=== PATIENT | female | born 1955 | race Caucasian/White ===

== ENCOUNTER 2018-09-17 20:56 | Outpatient (REF) | payer MEDICARE, MEDICAID, SELFPAY ==
[2018-09-17 23:00] LABS: BUN 12 mg/dL (7-18); CREATININE 1.04 mg/dL (0.55-1.02); Calcium 9.9 mg/dL (8.5-10.1); Chloride 101 mmol/L (98-107); Cholesterol 216 mg/dL (50-200); Estimated GFR 53.52 (mL/min/1.73m2); Glucose 90 mg/dL (70-100); HDL Cholesterol 52 mg/dL (40-60); LDL CHOLESTEROL 125 mg/dL (<100); Potassium 4.2 mmol/L (3.5-5.1); Sodium 138 mmol/L (136-145); TSH (W/Ref FT4) 2.85 uIU/mL (0.358-3.74); Triglyceride 261 mg/dL (30-150)
== END 2018-09-17 21:16 ==
LOC: NCHCN 20:56
PROVIDERS: PCP Specialist/Technologist Athletic Trainer; Visit Provider Specialist/Technologist Athletic Trainer
DX: I10 Essential (primary) hypertension (principal); E78.5 Hyperlipidemia, unspecified; R94.6 Abnormal results of thyroid function studies
CPT/HCPCS: 80048; 80061; 83721; 84443

== ENCOUNTER 2019-03-21 14:15 | Outpatient (REF) | payer MEDICARE, MEDICAID, SELFPAY | END 2019-03-21 14:35 | LOC: NCHCN 14:15 | PROVIDERS: PCP Specialist/Technologist Athletic Trainer; Visit Provider Specialist/Technologist Athletic Trainer | DX: R69 Illness, unspecified (principal) ==

== ENCOUNTER 2019-03-21 22:35 | Outpatient (REF) | payer MEDICARE, MEDICAID, SELFPAY ==
[2019-03-21 23:57] LABS: Epithelial Cells Rare HPF (Negative); Other Cells Few Renal (Negative); RBC Negative (0-2); WBC 0-2 HPF (0-5)
[2019-03-21 23:58] LABS: Bacteria Negative HPF (Negative); C & S Indicated? No; Casts Negative LPF (Negative); Crystals Negative HPF (Negative); Mucus Negative (Negative)
== END 2019-03-21 22:55 ==
LOC: NCHCN 22:35
PROVIDERS: PCP Specialist/Technologist Athletic Trainer; Visit Provider Specialist/Technologist Athletic Trainer
DX: R30.9 Painful micturition, unspecified (principal)
CPT/HCPCS: 81015

== ENCOUNTER 2019-09-20 12:36 | Outpatient (REF) | payer OTHER, MEDICAID, SELFPAY ==
[2019-09-20 19:59] LABS: Anion Gap 8.9 mmol/L (3-11); BUN 19 mg/dL (7-18); CO2 28.1 mmol/L (21.0-32.0); Calcium 9.6 mg/dL (8.5-10.1); Chloride 99 mmol/L (98-107); Glucose 112 mg/dL (74-106); Potassium 4.8 mmol/L (3.5-5.1); Sodium 136 mmol/L (136-145); TSH (W/Ref FT4) 1.91 uIU/mL (0.36-3.74)
== END 2019-09-20 12:56 ==
LOC: NCHCN 12:36
PROVIDERS: PCP Specialist/Technologist Athletic Trainer; Visit Provider Specialist/Technologist Athletic Trainer
DX: R94.6 Abnormal results of thyroid function studies (principal); I10 Essential (primary) hypertension
CPT/HCPCS: 80048; 84443

== ENCOUNTER 2019-10-18 01:48 | Outpatient (CLI) | payer OTHER, MEDICAID, SELFPAY ==
--- NOTE | 2019-10-18 | DI.MAMMO_ITS ---
EXAM: MG MAMMO SCREENING CLINICAL HISTORY: SCREENING, [facility], Z00.00. TECHNIQUE: Bilateral full field digital CC and MLO mammographic images were obtained with 3D tomosyn thesis and utilizing computer aided detection (CAD). COMPARISON: Available for comparison. FINDINGS: Masses/Architectural Distortion: None seen. Microcalcifications: No suspicious pleomorphic-type are seen. Skin Thickening/Nipple Retraction: None. IMPRESSION: 1. No significant interval change with no specific features of malignancy noted. 2. Unless there is more urgent need, screening mammography is recommended, as per [employer] guidelines. ACR BI-RAD Category- 1 Negative Breast Density - Category C - Heterogeneously dense The mammogram demonstrates the patient's breast tissue is dense. Dense breast tissue is very common a nd is not abnormal but dense breast tissue can make it harder to find cancer on a mammogram. Also, de nse breast tissue may increase their breast cancer risk. This information about the result of the [facility] mogram report was provided to the patient to raise their awareness. Use this report when you speak wi th the patient about their risks for breast cancer, which includes their family history. At that time , you may recommend for more screening tests (Ultrasound or MRI) as they might be useful based on the ir risk. A negative radiographic report should not delay biopsy if a dominant or clinically suspicious mass is present. Up to ten percent of cancers are not identified on mammography. A negative report may reinforce clinical impression. Adenosis and dense breasts may obscure an underlying neoplasm. False positive reports average 6 to 10%. Patient will receive a letter notifying them of these results.
== END 2019-10-18 02:08 ==
PROVIDERS: PCP Specialist/Technologist Athletic Trainer; Visit Provider Specialist/Technologist Athletic Trainer
DX: Z12.31 Encounter for screening mammogram for malignant neoplasm of breast (principal)
CPT/HCPCS: 77063; 77067

== ENCOUNTER 2020-06-01 10:55 | Outpatient (REF) | payer OTHER, MEDICAID, SELFPAY ==
[2020-06-01 20:18] LABS: Calculated LDL 118 mg/dL (<100); Cholesterol 203 mg/dL (<200); HDL Cholesterol 53 mg/dL (40-60); Triglyceride 161 mg/dL (<150)
== END 2020-06-01 11:15 ==
LOC: NCHCN 10:55
PROVIDERS: PCP Specialist/Technologist Athletic Trainer; Visit Provider Nurse Practitioner Family
DX: R73.03 Prediabetes (principal); E78.5 Hyperlipidemia, unspecified
CPT/HCPCS: 80061; 83036

== ENCOUNTER 2020-12-30 10:53 | Outpatient (REF) | payer OTHER, MEDICAID, SELFPAY ==
[2020-12-30 15:51] LABS: Calculated LDL 76 mg/dL (<100); Cholesterol 158 mg/dL (<200); HDL Cholesterol 48 mg/dL (40-60); Magnesium 1.8 mg/dL (1.8-2.4); Triglyceride 174 mg/dL (<150)
== END 2020-12-30 10:54 | disposition home or self-care (01) ==
LOC: NCHCN 10:53
PROVIDERS: PCP Specialist/Technologist Athletic Trainer; Visit Provider Nurse Practitioner Family
DX: E78.5 Hyperlipidemia, unspecified (principal); I10 Essential (primary) hypertension
CPT/HCPCS: 80061; 83735

== ENCOUNTER 2021-12-16 16:12 | Outpatient (REF) | payer OTHER, MEDICAID, SELFPAY ==
[2021-12-16 21:22] LABS: Hemoglobin A1C 6.3 % (<5.7)
[2021-12-16 21:48] LABS: Anion Gap 8.6 mmol/L (3-11); BUN 17 mg/dL (7-18); CO2 28.4 mmol/L (21.0-32.0); CREATININE 0.9 mg/dL (0.55-1.02); Chloride 100 mmol/L (98-107); Glucose 110 mg/dL (74-106); Potassium 4.9 mmol/L (3.5-5.1); Sodium 137 mmol/L (136-145); Vitamin B12 > 2000 pg/mL (193-986)
== END 2021-12-16 16:13 | disposition home or self-care (01) ==
LOC: NCHCN 16:12
PROVIDERS: PCP Specialist/Technologist Athletic Trainer; Visit Provider Nurse Practitioner Family
DX: R73.03 Prediabetes (principal); I10 Essential (primary) hypertension; R35.0 Frequency of micturition; E53.8 Deficiency of other specified B group vitamins
CPT/HCPCS: 80048; 87077; 82607; 83036; 87086; 87186

== ENCOUNTER 2022-01-18 18:26 | Outpatient (REF) | payer OTHER, MEDICAID, SELFPAY | END 2022-01-18 18:27 | disposition home or self-care (01) | LOC: LBN 18:26 | PROVIDERS: PCP Specialist/Technologist Athletic Trainer; Visit Provider Nurse Practitioner Family | DX: R35.0 Frequency of micturition (principal) | CPT/HCPCS: 87086 ==

== ENCOUNTER → 2022-02-02 03:09 | Outpatient (CLI) | payer OTHER, MEDICAID, SELFPAY ==
--- NOTE | 2022-02-02 12:16 | DI.MAMMO_ITS ---
Exam(s) MAMMO SCREENING EXAM: MAMMO SCREENING CLINICAL HISTORY: SCREENING, Z12.31 TECHNIQUE: Mammograms were interpreted according to the usual protocol including computer analysis w [facility] CAD system, tomosynthesis and C-view imaging. COMPARISON: FINDINGS: The breasts are heterogeneously dense. No dominant mass or clumped microcalcification is identified in either breast. The current examination is compared with previous examinations including October 2019 and there has been no gross interval change in appearance in comparison with the prior studies. IMPRESSION: No specific evidence of malignancy at this time. Routine screening examinations are suggested at yea rly intervals in this age group according to the ACS ACR guidelines. BI-RADS Category 1 - Negative Breast Density - Category C - Heterogeneously dense
== END ==
PROVIDERS: PCP Specialist/Technologist Athletic Trainer; Visit Provider Nurse Practitioner Family
DX: Z12.31 Encounter for screening mammogram for malignant neoplasm of breast (principal)
CPT/HCPCS: 77063; 77067

== ENCOUNTER 2022-06-23 17:10 | Outpatient (REF) | payer MEDICARE, MEDICAID, SELFPAY ==
[2022-06-23 19:36] LABS: Vitamin B12 721 pg/mL (193-986)
[2022-06-23 20:04] LABS: Hemoglobin A1C 6.4 % (<5.7)
== END 2022-06-23 17:11 | disposition home or self-care (01) ==
LOC: NCHCN 17:10
PROVIDERS: PCP Specialist/Technologist Athletic Trainer; Visit Provider Nurse Practitioner Family
DX: R73.03 Prediabetes (principal); E53.8 Deficiency of other specified B group vitamins
CPT/HCPCS: 82607; 83036

== ENCOUNTER 2023-08-07 13:55 | Outpatient (REF) | payer MEDICARE, MEDICAID, SELFPAY ==
[2023-08-07 15:31] LABS: Hemoglobin A1C 6.3 % (<5.7)
[2023-08-07 15:45] LABS: Vitamin D 25 Total 25.4 ng/mL (30-100)
[2023-08-07 15:49] LABS: ALT 30 U/L (14-59); AST 20 U/L (15-37); Albumin 3.9 g/dL (3.4-5.0); Alkaline Phosphatase 101 U/L (46-116); Anion Gap 5.9 mmol/L (3-11); BUN 12 mg/dL (7-18); Bilirubin, Total 0.4 mg/dL (0.2-1.0); CO2 28.1 mmol/L (21.0-32.0); CREATININE 0.9 mg/dL (0.55-1.02); Calcium 9.5 mg/dL (8.5-10.1); Calculated LDL 100 mg/dL (<100); Chloride 101 mmol/L (98-107); Cholesterol 187 mg/dL (<200); Estimated GFR 69.64 (mL/min/1.73m2); Glucose 116 mg/dL (74-106); HDL Cholesterol 70 mg/dL (40-60); Potassium 5.2 mmol/L (3.5-5.1); Sodium 135 mmol/L (136-145); Total Protein 7.5 g/dL (6.4-8.2); Triglyceride 88 mg/dL (<150); Vitamin B12 443 pg/mL (193-986)
== END 2023-08-07 13:56 | disposition home or self-care (01) ==
LOC: NCHCN 13:55
PROVIDERS: PCP Specialist/Technologist Athletic Trainer; Visit Provider Nurse Practitioner Family
DX: E78.5 Hyperlipidemia, unspecified (principal); R73.03 Prediabetes; Z00.00 Encounter for general adult medical examination without abnormal findings
CPT/HCPCS: 80053; 80061; 82306; 82607; 83036

== ENCOUNTER 2024-08-20 16:04 | Outpatient (REF) | payer MEDICARE, SELFPAY ==
--- OUTSIDE RECORDS SUMMARY | 2024-08-20 16:06 | XMS_ITS | Encounter Summary ---
Author Organization [facility] Address [address] [place] [address] Care Team Providers Care Range Technician Name Role Phone Calista Leiva BUTT WELDER Primary Care Provider [phone] Encounter Details Date Type Department Care Team (Latest Contact Info) Description 08/14/2013 13:12 EST - 08/14/2013 23:59 EST Hospital Encounter [address] [address] Unknown, Provider, MD Discharge Disposition: Home or Self Care Social History Tobacco Use Types Packs/Day Years Used Date Smoking Tobacco: Never Assessed Comments Unknown Sex and Gender Information Value Date Recorded Sex Assigned at Not on file Legal Sex Female 18:33 EST Gender Identity Not on file Sexual Orientation Not on file documented as of this encounter Discharge Disposition Disposition Code Departure Means Destination Home or Self [facility] documented in this encounter Plan of Treatment Not on file documented as of this encounter Visit Diagnoses Not on filedocumented in this encounter Care Teams Range Technician Relationship Specialty Start Date End Date Calista Leiva NP [facility] [address] [place] [address] PCP - General 08/12/13 documented as of this encounter
--- OUTSIDE RECORDS SUMMARY | 2024-08-20 16:06 | XMS_ITS | Encounter Summary ---
[place] [address] Care Team Providers Care Director Of Public Relations Name Role Phone Rafat Spence Primary Care Provider [phone] Reason for Visit * Reason Comments Bilateral Arm Pain numbness Bilateral Leg Pain numbness Encounter Details Date Type Department Care Team (Late st Contact Info) Description 09/26/2014 10:25 AM EST Office [place] [address] Elizabeth Durand TREATER [facility] [place] [address] Cervical myelopathy Discharge Disposition: Home Social History Tobacco Use Types Packs/Day Years Used Date Smoking Tobacco: Never Smokeless Tobacco: Never Alcohol Use Standard Drinks/Week Comments No 0 (1 standard drink = 0.6 oz pur e alcohol) Sex and Gender Information Value Date Recorded Sex Assigned at Not on file Gender Identity Not on file Sexual Orientation Not on file documented as of this encounter Last Filed Vital Signs Vital Sign Reading Time Taken Comments Blood Pressure - - Pulse - - Temperature - - Respiratory Rate - - Oxygen Saturation - - Inhaled Oxygen Concentration - - Weight 63.5 kg (140 lb) 09/26/2014 11:15 AM EST Height 149.9 cm (4' 11) 09/26/2014 11:15 AM EST Body Mass Index 28.28 09/26/2014 11:15 AM EST documented in this encounter Progress Notes * Elizabeth Durand APRN - 09/29/2014 5:17 PM EST INTERVAL HISTORY: Jong Oliva is a 58 y.o. Right hand dominant female with h/o cervical myelopathyseen in the [facility] today for follow-up office visit with a chief complaint of increased pain and diffuse numbness and tingling in left>right bilateral upper and lower extremities. She is accompanied by her daughter today. She was to see Bertha Borja APRN, for surgical f/u in Dr. Radford's absence but she missed that f/u appointment. She has h/o C5-6 ACDF in 2001, that was then extended toC4-5 and C6-[address] Odilon Radford on 02/18/14 for cervical myelopathy. She notes feeling increasingly off balance and increased weakness in her legs while ambulating overthe last month. She reports a sharper increase in her symptoms over this past week. Upper extremitysymptoms began to increase about 2 weeks ago. She began experiencing increased pain in bilateral knees about 1 month ago and was diagnosed with OA in her knees after her PCP obtained knee x- rays. Herupper and lower extremity symptoms then slowly began to increase after that. She states, I'm not falling like I was prior to surgery, but I've started feeling more off balance. She has used a cane intermittently since her ACDF last summer. She has had 1 fall recently which involved missing a chair when she went to sit down. She complains of, throbbing pain everywhere, and shooting pains in her mid back, arms and legs. REVIEW OF SYSTEMS: negative for any GI or symptoms (except urinary urgency), constitutional symptoms, saddle anesthesia, dysphagia, or loss of bowel or bladder control. She does note some residualgait issues and right sided weakness since her last spine surgery as well as difficulty opening a jar with the right hand. She notes feeling increasingly off balance over the last month. PAST MEDICAL HISTORY: Hypertension, hyperlipidemia & h/o tuberculosis. SOCIAL HISTORY: She has been on SSDI since 2005 and does not smoke tobacco. MEDICATIONS & ALLERGIES: reviewed with the patient and are in eD-H. PHYSICAL EXAMINATION: Height: 4'11. Weight: 140 lbs. BMI: 28.3. This is an overweight older adult female in no acute distress. She ambulates with a limping, spastic gait and uses a cane. She is unable to perform tandem heel-toe walk without ataxia. She has a wellhealed anterior cervical incision scar. Her cervical spine is non-tender to palpation. [employer] Sourcer strength is 5/5 on the left, 5-/5 on the right. Strength is 5/5 in left triceps/biceps and 4/5 in right triceps/biceps. Strength is 5/5 in all lower extremity muscle groups with the exception of 4/5 in righthip flexor and 2/5 in right hamstring, and she demonstrates weakness with dorsiflexion>plantar flexion of right foot. Touch sensation is diffusely decreased in bilateral upper & lower extremities. Triceps deep tendon reflexes are 2/4 bilaterally. Biceps deep tendon reflexes are 2/4 bilaterally. Brachioradialis deep tendon reflexes are 2/4 bilaterally. There is no clonus. Babinski is with down-going toes bilaterally. Lori's reflex is present bilaterally. Lhermitte's sign is absent. IMAGIN04/21/14 Cervical AP & lateral x-ray: Findings There is an anterior cervical discectomy and plate with screw fusion from C4-C7. There is no change in alignment of hardware with no hardware lucency. No fracture or listhesis. There has been interval removal of the surgical drain. No paravertebral soft tissue swelling. Impression Unchanged appearance of C4-C7 ACDF with no complication. ASSESSMENT: Patient with a h/o cervical myelopathy and recurrent symptoms s/p ACDF. PLAN: 1) Will obtain updated Cervical MRI w/wo contrast given a change in her symptoms. She requires oralsedation due to claustrophobia and was instructed she will need a van driver to and from her MRI appointment. 2) As she cannot tolerate oral NSAIDs given her h/o bleeding ulcers, and she is asking for a prescription for pain medication, I have given her a prescription for hydromorphone 2mg Q6 hours PRN to take for pain, which she tolerated well during her hospital stay after her last ACDF surgery. I advised her not to drink alcohol or drive while taking this medication. She will continue acetaminophen asneeded as well. Follow-Up: After MRI for review of imaging findings and consideration of treatment options. I instructed her not to lift >10 lbs. pending obtaining updated imaging and to f/u sooner/emergently should she experience progressively worsening pain, numbness, weakness, or loss of control of bowel or bladder function. All questions were answered and the patient is in agreement with the above treatment plan. This was a counseling dominated visit with approximately 15 minutes of this 25 minute encounter spent in face to face counseling, medical decision making, and review of imaging and treatment options. Thank you for the opportunity to participate in the care of this patient. Elizabeth Durand MS, TREATER, [employer] documented in this encounter Plan of Treatment Not on file documented as of this encounter Visit Diagnoses Diagnosis Cervical myelopathy Cervical spondylosis with myelopathy documented in this encounter Care Teams Director Of Public Relations Relationship Specialty Start Date End Date Rafat Spence PA [address] [place] [address] PCP - General 09/26/14 03/08/21 documented as of this encounter
--- OUTSIDE RECORDS SUMMARY | 2024-08-20 16:06 | XMS_ITS | Encounter Summary ---
Author Organization [facility] Address [address] [place] [address] Care Team Providers Care Drainage Design Coordinator Name Role Phone Unavailable Primary Care Provider Unavailabl e Encounter Details Date Type Department Care Team (Late st Contact Info) Description 12/07/2007 Results Only [facility] [place] [facility] conversion [address] [place] [address] Calista Paniagua, ERNIE [facility] [address] [place] [address] Social History Tobacco Use Types Packs/Day Years Used Date Smoking Tobacco: Never Assessed Comments Unknown Sex and Gender Information Value Date Recorded Sex Assigned at Not on file Legal Sex Female 18:33 EST Gender Identity Not on file Sexual Orientation Not on file documented as of this encounter Plan of Treatment Not on file documented as of this encounter Procedures Procedure Name Priority Date/Time Associated Diagnosis Comments CYTOPATHOLOGY Routine 12/07/2007 0:00 EDT documented in this encounter Results * CYTOPATHOLOGY (12/07/2007 0:00 EDT) Pathology Report: CYTOPATHOLOGY REPORT Reports generated via electronic interface contain original data; however they are lacking the format of the original report. Caution should be taken when reading/interpreti ng unformatted reports. Name: ? JONG PRIETO ? Accession #: ? [id number] : ? 1955 (Age: 51) ??F ?Collect Date: ? 12/07/2007 Location: ? [facility] ? Receive Date: ? 12/10/2007 Provider: ?CALISTA PANIAGUA TRIAL CONSULTANT Copy to: ? Specimen/Source: ?ThinPrep Pap Test, Cervix/Endocervix, processed on Net 263 ThinPrep Imaging System, with manual evaluation Last Menstrual Period: ? SPECIMEN ADEQUACY ? Satisfactory for Evaluation - assessment of transformation zone component not applicable ( e.g. atrophy, vaginal sample, hysterectomy) GENERAL CATEGORIZATION ? Negative for Intraepithelial Lesion or Malignancy ? Document reviewed and electronically signed by: ? NADIA Pearson(ASCP)(IAC) ? Report Date: ??12/12/2007 16:02 End of Report [facility] 12/07/2007 12/10/2007 us Calista Paniagua NP PATHOLOGY ORDERABLES Final Resu lt Performing Organization Address City/State/[facility] Co de Phone Number [facility] [address] [place] [address] documented in this encounter Visit Diagnoses Not on filedocumented in this encounter
--- OUTSIDE RECORDS SUMMARY | 2024-08-20 16:06 | XMS_ITS | Encounter Summary ---
Author Organization [facility] Address [address] [place] [address] Care Team Providers Care Louver Mortiser Operator Name Role Phone Unavailable Primary Care Provider Unavailabl e Encounter Details Date Type Department Care Team (Late st Contact Info) Description 01/09/2012 Results Only [facility] Laboratory Services - [facility] ([facility] [address] [place], [place] [id number] Calista Paniagua NP [facility] [address] [place] [address] Social History Tobacco Use Types [...] Procedure Name Priority Date/Time Associated Diagnosis Comments PAP TEST- RESULT ONLY Routine 01/09/2012 0:00 EDT documented in this encounter Results * PAP TEST- RESULT ONLY (01/09/2012 0:00 EDT) Pathology Report: CYTOPATHOLOGY REPORT Reports generated via electronic interface contain original data; however they are lacking the format of the original report. Caution should be taken when reading/interpreti ng unformatted reports. Name: ? JONG PRIETO ? Accession #: ? [id number] : ? 1955 (Age: 56) ??F ?Collect Date: ? 01/09/2012 Location: ? [facility] ? Receive Date: ? 01/10/2012 Provider: ?CALISTA PANIAGUA LINKING MACHINE OPERATOR Copy to: ? Specimen/Source: ?Pap Test, Source Not Provided, [facility] Imaging System with manual evaluation Last Menstrual Period: ? 5 years ago ? SPECIMEN ADEQUACY ? Satisfactory for Evaluation - transformation zone component present GENERAL CATEGORIZATION ? Negative for Intraepithelial Lesion or Malignancy ? Document reviewed and electronically signed by: ? Bin Moody, CT(ASCP) ? Report Date: ??01/16/2012 09:28 End of Report [facility] 01/09/2012 01/10/2012 us Calista Paniagua LINKING MACHINE OPERATOR PATHOLOGY ORDERABLES Final Resu lt [facility] [address] [place] [address] documented in this encounter Visit Diagnoses Not on filedocumented in this encounter
--- OUTSIDE RECORDS SUMMARY | 2024-08-20 16:06 | XMS_ITS | Encounter Summary ---
Author Organization [facility] Address [facility] [place] [address] Care Team Providers Care Golf Cart Mechanic Name Role Phone Rafat Spence Primary Care Provider [phone] Reason for Referral * Consultation (Routine) - Specialty Diagnoses / Procedures Referred By Contac t Referred To Contact Neurology Diagnoses Cervical spondylosis Odilon Radford MD [facility] [place] [address] Referral ID Status Reason Start Date Expiration Date V isits Requested Visits Authorized [id number] Consult, Test & Treat 11/25/2014 05/24/2015 3 3 Reason for Visit * Reason Comments Low Back Pain burning sensation Encounter Details Date Type Department Care Team (Late st Contact Info) Description 11/24/2014 1:00 PM EDT Follow-[place] [address] Odilon Radford MD [facility] [place] [address] Cervical spondylosis Discharge Disposition: Home Social History Tobacco Use [...] Sign Reading Time Taken Comments Blood Pressure 116/68 11/24/2014 12:50 PM EDT Pulse - - Temperature - - Respiratory Rate - - Oxygen Saturation - - Inhaled Oxygen Concentration - - Weight 63.5 kg (140 lb) 11/24/2014 12:50 PM EDT Height 149.9 cm (4' 11) 11/24/2014 12:50 PM EDT Body Mass Index 28.28 11/24/2014 12:50 PM EDT documented in this encounter Progress Notes * Odilon Radford MD - 11/24/2014 1:32 PM EDT Jong Oliva returns to the Spine Center in followup of her decompression for cervical spondylotic myelopathy. From the motor standpoint from her surgery she has done very well. She has regained essentially complete use of her hands and she is ambulatory without assistance, but she has new complaints that she says were not present before the surgery including dysesthetic pain in her thighs, across her back. The pain in the shoulders has gotten better with physical therapy. She says she gets markedly stiff when she first wakes up in the morning. On examination her neck incision is nicely healed. Motor strength is full in the upper extremities. There is still some weakness of the right lower extremity but she is able to ambulate without assistance although her gait is quite stiff in appearance. Her reflexes remain moderately brisk. We had a discussion on the situation and options here. She has had a good response in terms of jewish of motor function from her surgery and her MRI really looks quite good. There is maybe some small degree of residual canal stenosis but it is quite improved from before her operation. X-ray from today shows acceptable graft and instrument position. I am not exactly sure what to make of this. I think it would be reasonable for her to be seen by one of the neurologists and we will take things from there. All questions were answered. documented in this encounter Miscellaneous Notes * Addendum Note - Stefanie Davies RN - 11/25/2014 1:57 PM EDTAddended by: STEFANIE DAVIES on: 11/25/2014 01:57 PM Modules accepted: Orders documented in this encounter Plan of Treatment Scheduled Referrals Name Type Priority Associated Diagnoses Orde r Schedule Referral to Neurology Outpatient Referral Routine Cervical spondylosis Ordered: 11/25/2014 documented as of this encounter Visit Diagnoses Diagnosis Cervical spondylosis Cervical spondylosis without myelopathy documented in this encounter Care Teams Golf Cart Mechanic Relationship Specialty Start Date End Date Rafat Spence PA [address] [place] [address] PCP - General 09/26/14 03/08/21 documented as of this encounter
--- OUTSIDE RECORDS SUMMARY | 2024-08-20 16:06 | XMS_ITS | Encounter Summary ---
Author Organization [facility] Address [facility] [place] [address] Care Team Providers Care House Coordinator Name Role Phone Rafat Spence Primary Care Provider Encounter Details Date Type Department Care Team (Latest Contact Info) Description 10/20/2014 10:42 AM EST - 10/20/2014 12:37 PM EST Hospital Encounter MRI at [facility] [place] [id number] CLINIC, DR DE JESUS Cervical myelopathy Social History Tobacco Use Types Packs/Day Years Used Date Smoking Tobacco: Never Smokeless Tobacco: Never Alcohol Use Standard Drinks/Week Comments No 0 (1 standard drink = 0.6 oz pur e alcohol) Sex and Gender Information Value Date Recorded Sex Assigned at Not on file Gender Identity Not on file Sexual Orientation Not on file documented as of this encounter Medications at Time of Discharge Medication Sig Dispensed Refills Start Date End Date CELEBREX 200 mg Capsule 0 08/05/2014 HYDROmorphone (DILAUDID) 2 mg Tablet Take 1 tablet by mouth every 6 hours as needed for Pain. 60 tablet 0 09/26/2014 amitriptyline (ELAVIL) 50 mg tablet Take 50 mg by mouth nightly. HCL aspirin 81 mg EC tablet Take 81 mg by mouth nightly. acetaminophen (TYLENOL) 325 mg tablet Take 2 tablets by mouth every 4 hours as needed for Pain (mild pain). 30 tablet 1 02/20/2014 senna-docusate (PERICOLACE) 8.6-50 mg per tablet Take 1-2 tablets by mouth 2 times daily as needed for Constipation. 60 tablet 11 02/20/2014 atorvastatin (LIPITOR) 20 mg tablet Take 20 mg by mouth daily. atenolol (TENORMIN) 50 mg tablet Take 50 mg by mouth daily. ranitidine (ZANTAC) 300 mg tablet Take 300 mg by mouth nightly. NIFEdipine (ADALAT CC) 30 mg 24 hr tablet Take 30 mg by mouth daily. documented as of this encounter Progress Notes * Aneta Wyatt RN - 10/16/2014 10:36 AM EST VIR MRI PRE-SEDATION ASSESSMENT NOTE NAME: Jong Oliva AGE: 58 y.o. : 1955 Female [phone] (home) No relevant phone numbers on file. PCP BRICK PITCHERNAHOMY DONOVAN None No Known Allergies Date/Time of call: October 16, 2014/10:36 AM/ PREVIOUS MRI SCAN? HEIGHT: 59 WEIGHT:155# SCHEDULED SCAN:MRI C Spinewwo SUBJECTIVE:I am claustrophobic ASSESSMENT:Patient candidate for po sedation PLAN:Ativan 1-2 mg per protocol PRIOR SCAN DATE/S SEDATION TYPE SUCCESSFUL 02/17/14 MRI L Spine wo unknown 10/20/14 MRI C Spinewwo Ativan 1 mg x 2 po yes PT WILL ARRIVE 1 HR. BEFORE SCHEDULED SCAN AND HAVE A HEEL SCOURER AVAILABLE. PT STATED TO CORSETIER THAT THE SEDATION WAS EFFECTIVE FOR SCAN: Y N COMMENTS: This patient has been informed that they require a moving van driver to drive them home after this procedure. In the absence of a moving van driver, IR will not be able to perform this procedure and will need to reschedule. Pt verbalized understanding of these instructions during the pre-procedure education via phone. documented in this encounter Plan of Treatment Not on file documented as of this encounter Procedures Procedure Name Priority Date/Time Associated Diagnosis Comments MRI CERVICAL SPINE WO CONTRAST Routine 10/20/2014 12:25 PM EST documented in this encounter Results * MRI cervical spine WO contrast (10/20/2014 12:25 PM EST) Anatomical Region Laterality Modality C-spine Magnetic Resonan ce 10/20/2014 12:2 5 PM EST Impressions 10/20/2014 1:28 PM EST IMPRESSION: Small area of tissue loss and gliosis within the cervical spinal cord at C6-7. No ongoing cord compression at this site. Interval development of mild spondylolisthesis at C4-5 producing mild spinal stenosis but no flattening of the spinal cord Uncovertebral osteophyte producing neural foramen narrowing bilaterally, most marked at C4-5 and C6-7. Narrative 10/20/2014 1:28 PM EST EXAMINATION: MR Cspine WO Nayan CLINICAL HISTORY: h/o C4-C7 ACDF h/o cervical myelopathy, worsening bilateral upper & lower extremity paresthesias, positive Lori's reflex bilaterally TECHNIQUE: MRI of the cervical spine was obtained without the use of intravenous contrast. COMPARISON: MRI of cervical spine of 01/22/2014. FINDINGS: The study is mildly marred by patient motion. There is been interval anterior cervical discectomy and fusion at C4-C7. There is interval decrease in the bulk of the disc osteophytes at C4-5 and C6-7 so that there is no longer compression of the spinal cord at these levels. There is minor T2 prolongation remaining within the cervical spinal cord at the level of C6-7 little altered from signal abnormality present on the study of 520 09/05/2013 and likely reflecting scoliosis. There is minor cord thinning at this site. There is mild retrolisthesis of C4 with respect to C5. At C2-3 and C3-4 there is no disc herniation or narrowing of the neural foramina. At C4-5 the spondylolisthesis and facet arthropathy combine to produce R show effacement of the subarachnoid space. There is no flattening of the spinal cord or intramedullary spinal cord signal abnormality. There is moderate right and moderate to severe left neural foramen narrowing by uncovertebral osteophyte. At C5-6 there is uncovertebral osteophyte producing mild-moderate bilateral neural foramen narrowing. At C6-7 there is bilateral uncovertebral osteophyte producing moderate-severe bilateral neural foramen narrowing. At C7-T1 there is no disc herniation or more than minor neural foramen narrowing. Procedure Note Richi Vernon MD - 10/20/2014 EXAMINATION: MR Martínez Spicer CLINICAL HISTORY: h/o C4-C7 ACDF h/o cervical myelopathy, worseningbilateral upper & lower extremity paresthesias, positive Lori's reflex bilaterally TECHNIQUE: MRI of the cervical spine was obtained without the use ofintravenous contrast. COMPARISON: MRI of cervical spine of 01/22/2014. FINDINGS: The study is mildly marred by patient motion. There is been interval anterior cervical discectomy and fusion at C4-C7.There is interval decrease in the bulk of the disc osteophytes at C4-5 and C6-7so that there is no longer compression of the spinal cord at these levels.There is minor T2 prolongation remaining within the cervical spinal cord at thelevel of C6-7 little altered from signal abnormality present on the study of and likely reflecting scoliosis. There is minor cord thinning at thissite. There is mild retrolisthesis of C4 with respect to C5. At C2-3 and C3-4 there is no disc herniation or narrowing of the neural foramina. At C4-5 the spondylolisthesis and facet arthropathy combine to produce Rshow effacement of the subarachnoid space. There is no flattening of the spinalcord or intramedullary spinal cord signal abnormality. There is moderate rightand moderate to severe left neural foramen narrowing by uncovertebralosteophyte. At C5-6 there is uncovertebral osteophyte producing mild-moderatebilateral neural foramen narrowing. At C6-7 there is bilateral uncovertebral osteophyte producingmoderate-severe bilateral neural foramen narrowing. At C7-T1 there is no disc herniation or more than minor neural foramen narrowing. IMPRESSION IMPRESSION: Small area of tissue loss and gliosis within the cervical spinal cord atC6-7. No ongoing cord compression at this site. Interval development of mild spondylolisthesis at C4-5 producing mildspinal stenosis but no flattening of the spinal cord Uncovertebral osteophyte producing neural foramen narrowing bilaterally,most marked at C4-5 and C6-7. Authorizing Provider Result Boris MELTON MRI ORDERABLES documented in this encounter Visit Diagnoses Diagnosis Cervical myelopathy Cervical spondylosis with myelopathy documented in this encounter Administered Medications Inactive Administered Medications - up to 3 most recent administrations Medication Order MAR Action Action Date Dose Rate Site LORazepam (ATIVAN) tablet 1 mg 1 mg, Oral, EVERY 30 MIN PRN, 2 doses, Starting on Mon10/20/14 at 1055, Until Mon10/20/14 at 1133, Anxiety, Angio/IR (Day of Procedure), Routine Given 10/20/2014 11:33 AM EST 1 mg Given 10/20/2014 10:55 AM EST 1 mg documented in this encounter Care Teams House Coordinator Relationship Specialty Start Date End Date Rafat Spence PA [address] [place] [address] PCP - General 09/26/14 03/08/21 documented as of this encounter
--- OUTSIDE RECORDS SUMMARY | 2024-08-20 16:06 | XMS_ITS | Encounter Summary ---
Author Organization [facility] [place] [address] Care Team Providers Care Revolving Inventory Clerk Name Role Phone Rafat Spence Primary Care Provider Reason for Referral * Physical Therapy (Routine) - Closed Specialty Diagnoses / Procedures Referred By Contac t Referred To Contact Physical Therapy Diagnoses Myelopathy Odilon Radford MD [facility] [address] Referral ID Status Reason Start Date Expiration Date V isits Requested Visits Authorized [id number] Closed Evaluate and Treat 10/20/2014 04/18/2015 1 1 Reason for Visit * Reason Comments Neck Pain Encounter Details Date Type Department Care Team (Late st Contact Info) Description 10/20/2014 12:50 PM EST Office Visit [facility] [place] [phone] Odilon Radford MD [facility] [address] Myelopathy Discharge Disposition: Home Social History Tobacco Use Types Packs/Day Years Used Date Smoking Tobacco: Never Smokeless Tobacco: Never Alcohol Use Standard Drinks/Week Comments No 0 (1 standard drink = 0.6 oz pur e alcohol) Sex and Gender Information Value Date Recorded Sex Assigned at Not on file Gender Identity Not on file Sexual Orientation Not on file documented as of this encounter Progress Notes * Odilon Radford MD - 10/20/2014 5:24 PM EST Jong Oliva [facility]. She thinks that after surgery she did improve in terms of her walking and in terms of her hand use, but she has more recently had worsening numbness in her upper and lower extremities and difficulty with balance but no further weakness. On examination, her neck incision is well healed. To confrontation she has good strength in her upper extremities. There is some 4/5 weakness of her right lower extremity. Left lower extremity is full to confrontation. She is able to stand and walk. Her plain x-ray today shows a satisfactory graft instrument position. Her MRI shows at 6-7 there is good decompression. There is some high signal within the cord at this level. At the 4-5 level there is some spondylosis, but on the sagittal images there is CSF anterior to the spinal cord. There is perhaps some posterior narrowing at the 4-5 level although this is not to dramatic. I had a discussion with Ms. Oliva on the options in this situation. She certainly has had significant motor improvement since surgery, and her symptoms are largely subjective at this point. I do not see a dramatic surgical option here. Certainly a posterior decompression could be considered here but the degree of stenosis is not dramatic so I think best first course here would be to try some physical therapy. I will see her in about a month's time. She will call here if her symptoms worsen. All questions were answered. documented in this encounter Plan of Treatment Scheduled Referrals Name Type Priority Associated Diagnoses Orde r Schedule Referral to Physical Therapy Outpatient Referral Routine Myelopathy Ordered: 10/20/2014 documented as of this encounter Visit Diagnoses Diagnosis Myelopathy Unspecified disease of spinal cord documented in this encounter Care Teams Revolving Inventory Clerk Relationship Specialty Start Date End Date Rafat Specne PA [address] [place] [address] PCP - General 09/26/14 03/08/21 documented as of this encounter
--- OUTSIDE RECORDS SUMMARY | 2024-08-20 16:06 | XMS_ITS | Encounter Summary ---
Author Organization [facility] Address [address] [place] [address] Care Team Providers Care Assistant Program Manager Name Role Phone Abbie Calistasmitha Rogers NP Primary Care Provider [phone] Encounter Details Date Type Department Care Team (Late st Contact Info) Description 08/09/2013 Results Only [facility] [phone] Ricardo Mejia, DO [address] [place] [address] Social History Tobacco Use Types Packs/Day Years [...] Procedure Name Priority Date/Time Associated Diagnosis Comments SURGICAL PATHOLOGY Routine 08/09/2013 10 :23 EST documented in this encounter Results * SURGICAL PATHOLOGY (08/09/2013 10:23 EST) Pathology Report: SURGICAL PATHOLOGY REPORT Reports generated via electronic interface contain original data; however they are lacking the format of the original report. Caution should be taken when reading/interpreti ng unformatted reports. Name: ? JONG PRIETO ? Accession #: ? [id number] ? : ? 1955 (Age: 57) ??F ? Collect Date: ? 08/09/2013 ? Location: ? [facility] ? Receive Date: ? 08/10/2013 ? Provider: RICARDO MEJIA DO Copy to: CALISTA PANIAGUA RECEPTION CLERK ? Final Pathologic Diagnosis: A. COLON, RANDOM, BIOPSY: - ??No specific pathologic features. See comment. B. COLON, RECTUM, RANDOM, BIOPSY: - ??No specific pathologic features. Comment: Histologic sections of the colon biopsies demonstrate relatively normal colonic mucosa. There is no significant increase of inflammatory cells within the lamina propria. Mild focal eosinophilia is seen with rare eosinophilic cryptitis present. These findings are nonspecific they may represent an allergic response or changes secondary to drugs. Dr. Love 08/13/2013 09:41 AM Document reviewed and electronically signed by: ANDRES LOVE MD Report ??Date: 08/13/2013 14:17 By the signature above, the attending physician certifies that he/she has personally conducted a gross and/or microscopic examination of the described specimens and rendered or confirmed the above diagnosis. Specimen(s) Received: A. ??Random colon bxs B. ??Random rectal bxs Clinical History: Hx of diarrhea Gross Description: A. ?Received in formalin labelled with proper patient identification (initials J, R) and random colon bxs are thirty-five pink-mcgovern tissues (0.2 x 0.1 x 0.1 cm to 0.7 x 0.2 x 0.1 cm). Entirely submitted in A1-A12. B. ?Received in formalin labelled with proper patient identification (initials J, R) and random rectum bxs are eight pink-mcgovern tissues (0.1 x 0.1 x 0.1 cm to 0.3 x 0.3 x 0.2 cm). Entirely submitted in B1-B3. Ada Leung 08/12/2013 11:18 AM End of Report [facility] 08/09/2013 10:2 3 EST 08/10/2013 10:23 EST us Ricardo Mejia DO PATHOLOGY ORDERABLES Final Res ult [facility] [address] [place] [address] documented in this encounter Visit Diagnoses Not on filedocumented in this encounter Care Teams Assistant Program Manager Relationship Specialty Start Date End Date Calista Paniagua, ER[facility] [address] [place] [address] PCP - General 08/12/13 documented as of this encounter
--- OUTSIDE RECORDS SUMMARY | 2024-08-20 16:06 | XMS_ITS | Patient Health Record ---
Author Organization [facility] Address [address] [place] [address] Support Name Relationship Address Phone Unavailable Emergency Contact [address] [place] [address] TAM PRIETO Guarantor Unknown [phone] REASON FOR REFERRAL No Information MEDICATIONS Medication SIG (Take, Route, Frequency, Duration) Notes Start Date End Date Status Lipitor 10 mg 1 tab(s) orally once a day Active Amitriptyline HCl 10 mg 1 tab(s) orally once a day (at bedtime) Active RaNITidine HCl 300 mg 1 tab(s) orally once a day (at bedtime) for 30 day(s) Active CeleBREX 200 mg 1 cap(s) orally BID for 30 day(s) Active CALCARB WITH D 1200mg 1 tab(s) orally qd for 30 day(s) STOP*please review for potential update for e-prescription and drug interaction check* Active -[facility] for complete med list STOP*please review for potential update for e-prescription and drug interaction check* Active Aspirin 325 mg 1 tab(s) orally qd Active PROBLEMS Problem Type ICD Code Onset Dates Problem Status W/U Status Risk SNOMED Code Notes Problem Hyperlipidemia (272.4) Active confirmed Hyperlipidemia (61868260) Problem Weakness of muscles (728.87) Active confirmed Muscle weak ness (66081858) Status post multiple cervical spine fusion performed 02/18/14 Problem HTN (hypertension) (401.9) Active confirmed Hypertension (19747189) Problem GERD (gastroesophagea l reflux disease) (530.81) Active confirmed Gastroesophagea l reflux disease (035161414) Problem Cervical cord compression with myelopathy (336.9) Active confirmed Spinal cord disorder (92740335) PLAN OF TREATMENT No Information Insurance Providers Payer Name Payer Address Payer Phone Subscriber Number Group Number Insured Name Patient Relationship to Insured Coverage Start Date Coverage End Date MEDICARE [address] [place], [place] [id number] TAM PRIETO Self - patient is the insured [employer] MEDICARE COMPLETE [address] [address] [place] [address] [id number] TAM PRIETO Self - patient is the insured [place], [place] [id number] [phone] TAM PREITO Self - patient is the insured SELF [place] [address] [place] [address] TAM PRIETO Self - patient is the insured MEDICAL (GENERAL) HISTORY Medical History History ICD Code ORIF right ankle with pins 2006 s/p allograph fusion C5-C8 01/03 1997 positve TB, RX INH times 6months osteoarthritis, DJD watching b/p, as been up lately no meds Surgical History Surgery Date(Month/Year) ORIF R ankle 2001 s/p allograph fusion C5-C8 01/03 cervical decompression 02/2014
--- OUTSIDE RECORDS SUMMARY | 2024-08-20 16:06 | XMS_ITS | Encounter Summary ---
[place] [address] Care Team Providers Care Ship Boat Or Barge Mate Name Role Phone Calista Leiva APRN Primary Care Provider [phone] Reason for Visit * Reason Onset Date Comments Other 09/25/2014 N/T all four ext remities Encounter Details Date Type Department Care Team (Late st Contact Info) Description 09/25/2014 Telephone [place] [phone] Stefanie Shen, RN Other (N/T all four extremities) Social History Tobacco Use Types Packs/Day Years Used Date Smoking Tobacco: Never Smokeless Tobacco: Never Alcohol Use Standard Drinks/Week Comments No 0 (1 standard drink = 0.6 oz pur e alcohol) Sex and Gender Information Value Date Recorded Sex Assigned at Not on file Gender Identity Not on file Sexual Orientation Not on file documented as of this encounter Miscellaneous Notes * Telephone Encounter - Stefanie Shen, RN - 09/25/2014 2:40 PM EST Received call from pt who is s/p ACDF with Dr Nuñez on 02/18/14 for myelopathic symptoms. Pt was seenpostoperatively in Apr 2014 with plans to see Ms Borja on Dr Nuñezs behalf in ~ June [address] nuñez upon his return after the first of the year. Pt reports she was unable to attend scheduled apptr with Bertha given transportation problems; has pending FU with Dr Nuñez with Xray prior on 09/19/14. Pt calling this afternoon to report that for ~ 1 month she has had intermittent variable numbness; initially on leg, than the other, than an arm. Reports having Sabattus some odd sensations during thatmonth, but unable to be specific. Reports that without any inciting event, she awoke this morning with chest pressure/numbness in her chest; that the chest symptoms have resolved but is now experiencing numbness and tingling, with an associated burning sensation, in all four extremities including her bilat hands and feet. Pt reports ambulating with cane; reports that she has strength in her legs.Is vague when asked, but does reports some weakness in her upper extremities. Advised pt that I would review notes and current symptoms and that we would look into need for imaging and/or an earlier appt; In the interim, advised pt that is she experiences yaneth progressive weakness in her upper or lower extremities, that she should seek an immediate evaluation through an emergency dept rather than waiting for a scheduled appt. Pt verbalized understanding. Pt reported being at her daughters, suggested i call her home number and leave message with appt needs. Reviewed notes, reviewed schedules. Attempted to reach pt at both daughter's numbers that were in e-dh, no answer left message advising that I was trying to reach their mother. Call placed to pt's home number VM option was brief; Left multiple messages identifying who I was , my contact number and that we had scheduled an appt for her to be evaluated in the [facility] tomorrow, Monday09/26/13 with Ms Durand at 11:10. Requested she call [place] if this is not an option so re could revisit options, call back number provided. Received return call from pt; Pt advised of tomorrows appt; will attend for Physical Evaluation as scheduled. documented in this encounter Plan of Treatment Not on file documented as of this encounter Visit Diagnoses Not on filedocumented in this encounter Care Teams Ship Boat Or Barge Mate Relationship Specialty Start Date End Date Calista Leiva APRN PCP - General 01/28/14 09/25/14 documented as of this encounter
--- OUTSIDE RECORDS SUMMARY | 2024-08-20 16:06 | XMS_ITS | Encounter Summary ---
Author Organization [facility] Address [facility] [place] [address] Care Team Providers Care Health Sciences Dean Name Role Phone Calista Leiva APRN Primary Care Provider [phone] Encounter Details Date Type Department Care Team (Latest Contact Info) Description 04/21/2014 12:46 PM EDT - 04/21/2014 11:59 PM EDT Hospital Encounter XRay at [address] [place] [address] CLINIC, DR LIZA Radford, Odilon Morfin MD [facility] [place] [address] Cervical myelopathy Discharge Disposition: Home Social History [...] Sig Dispensed Refills Start Date End Date amitriptyline (ELAVIL) 50 mg tablet Take 50 [...] mouth daily. documented as of this encounter Plan of Treatment Not on file documented as of this encounter Procedures Procedure Name Priority Date/Time Associated Diagnosis Comments XR CERVICAL SPINE 2 OR 3 VIEWS Routine 04/21/2014 1:00 PM EDT Cervical myelopathy documented in this encounter Results * XR Cervical Spine 2 or 3 views (04/21/2014 1:00 PM EDT) Anatomical Region Laterality Modality C-spine N/A Radiographic Meagan ging 04/21/2014 1:00 PM EDT Narrative 04/21/2014 4:19 PM EDT Examination Cervical Spine 2 or 3 Views Clinical History s/p ACDF Comparison AP and lateral views of the cervical spine 02/18/2014 Technique AP and lateral views of the cervical spine Findings There is an anterior cervical discectomy and plate with screw fusion from C4-C7. There is no change in alignment of hardware with no hardware lucency. No fracture or listhesis. There has been interval removal of the surgical drain. No paravertebral soft tissue swelling. Impression Unchanged appearance of C4-C7 ACDF with no complication Film and interpretation reviewed by the attending Procedure Note Mauro Villarreal MD - 04/21/2014 Examination Cervical Spine 2 or 3 Views Clinical History s/p ACDF Comparison AP and lateral views of the cervical spine 02/18/2014 Technique AP and lateral views of the cervical spine Findings There is an anterior cervical discectomy and plate with screw fusion from C4-C7. There is no change in alignment of hardware with no hardwarelucency. No fracture or listhesis. There has been interval removal of the surgicaldrain. No paravertebral soft tissue swelling. Impression Unchanged appearance of C4-C7 ACDF with no complication Film and interpretation reviewed by the attending Odilon Radford MD IMG DX ORDERABLES documented in this encounter Visit Diagnoses Diagnosis Cervical myelopathy Cervical spondylosis with myelopathy documented in this encounter Care Teams Health Sciences Dean Relationship Specialty Start Date End Date Calista Leiva APRN PCP - General 01/28/14 09/25/14 documented as of this encounter
--- OUTSIDE RECORDS SUMMARY | 2024-08-20 16:06 | XMS_ITS | Encounter Summary ---
Author Organization Formerly [facility] Address [facility] [place] [address] Care Team Providers Care Private Chef Name Role Phone Calista Leiva APRN Primary Care Provider [phone] Reason for Visit * Reason Comments Follow Up Surgery Encounter Details Date Type Department Care Team (Late st Contact Info) Description 04/21/2014 1:20 PM EDT Office [place] [phone] Odilon Radford MD [facility] [address] Spondylosis (Primary Dx) Discharge Disposition: Home Social History Tobacco Use [...] Sign Reading Time Taken Comments Blood Pressure 112/66 04/21/2014 1:23 PM EDT Pulse - - Temperature - - Respiratory Rate - - Oxygen Saturation - - Inhaled Oxygen Concentration - - Weight 63.5 kg (140 lb) 04/21/2014 1:23 PM EDT Height 149.9 cm (4' 11) 04/21/2014 1:23 PM EDT Body Mass Index 28.28 04/21/2014 1:23 PM EDT documented in this encounter Patient Instructions * Patient Instructions* Sasha Trevino LNA - 04/21/2014 1:23 PM EDT I would like you to sign up for myD-H, which will give you secure online access to your electronic medical record at [facility] and the ability to communicate with your health care team whenand where it???s most convenient for you. With myD-H you will be able to: - look at parts of your medical record including test results and office notes - send and receive messages to/from me and your other providers - renew prescriptions - schedule appointments. To sign up, go to [email or web address] and click I have an activation code and follow the instructions. Here is your activation code: [email or web address] Expires: 06/05/2014 1:23 PM Remember, myD-H is NOT for urgent needs! Always dial 911 for medical emergencies. documented in this encounter Progress Notes * Odilon Radford MD - 04/21/2014 3:52 PM EDT Jong Oliva returns to the Sp[facility] Center in followup for anterior cervical diskectomies, autograft fusions and plating. Since being seen last time she is clearly better in terms of her myelopathy. She is ambulatory with the use of a cane. She now has good use of her right hand although she still has a fair amount of numbness. 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 She still has weakness of foot dorsiflexion on the right and her gait is quite stiff and spastic in appearance but it is done with a cane and is clearly better than it was preoperatively. X-ray from today shows a satisfactory alignment. I think this represents progress. I discussed with her my upcoming leave of absence. I will plan to have her have another x-ray in about 2 months' time and follow up with Ms. Borja and I will see her after the first of the year. documented in this encounter Plan of Treatment Not on file documented as of this encounter Results * XR cervical spine 1 view (10/20/2014 12:57 PM EST) Anatomical Region Laterality Modality C-spine N/A Radiographic Meagan ging 10/20/2014 12:5 7 PM EST Impressions 10/20/2014 1:14 PM EST IMPRESSION: 1. There is an anterior cervical discectomy and plate with screw fusion from C4-C7. There is no change in alignment of hardware with no perihardware lucency or fracture. 2. Degenerative changes are noted in the mid and lower cervical spine. 3. No paravertebral soft tissue swelling. Narrative 10/20/2014 1:14 PM EST EXAMINATION: CERVICAL SPINE LATERAL ONLY CLINICAL HISTORY: s/p ACDF; ? alignment TECHNIQUE: Lateral cervical spine. COMPARISON: 04/21/2014. FINDINGS: There is an anterior cervical discectomy and plate with screw fusion from C4-C7. There is no change in alignment of hardware with no perihardware lucency or fracture. No interval acute fracture is appreciated. No interval development of spondylolisthesis.. Degenerative changes are noted in the mid and lower cervical spine No paravertebral soft tissue swelling is present. Procedure Note Rashi Dan MD - 10/20/2014 EXAMINATION: CERVICAL SPINE LATERAL ONLY CLINICAL HISTORY: s/p ACDF; ? alignment TECHNIQUE: Lateral cervical spine. COMPARISON: 04/21/2014. FINDINGS: There is an anterior cervical discectomy and plate with screw fusion from C4-C7. There is no change in alignment of hardware with no perihardwarelucency or fracture. No interval acute fracture is appreciated. No intervaldevelopment of spondylolisthesis.. Degenerative changes are noted in the mid andlower cervical spine No paravertebral soft tissue swelling is present. IMPRESSION IMPRESSION: 1. There is an anterior cervical discectomy and plate with screw fusionfrom C4-C7. There is no change in alignment of hardware with no perihardwarelucency or fracture. 2. Degenerative changes are noted in the mid and lower cervical spine. 3. No paravertebral soft tissue swelling. Odilon Radford MD IMG DX ORDERABLES documented in this encounter Visit Diagnoses Diagnosis Spondylosis- Primary Spondylosis of unspecified site without mention of myelopathy Spondylosis Spondylosis of unspecified site without mention of myelopathy documented in this encounter Care Teams Private Chef Relationship Specialty Start Date End Date Calista Leiva, TROLLEY CLEANER PCP - General 01/28/14 09/25/14 documented as of this encounter
--- OUTSIDE RECORDS SUMMARY | 2024-08-20 16:06 | XMS_ITS | Encounter Summary ---
Author Organization [facility] Address [address] [place] [address] Care Team Providers Care Supervisor Felling Bucking Name Role Phone Unavailable Primary Care Provider Unavailabl e Encounter Details Date Type Department Care Team (Late st Contact Info) Description 10/10/2005 Results Only [facility] - Map conversion [address] [place] [address] Heike Lea PA-C [address] [place] [phone] Social History Tobacco Use Types Packs/Day Years [...] Priority Date/Time Associated Diagnosis Comments CYTOPATHOLOGY Routine 10/10/2005 0:00 EST documented in this encounter Results * CYTOPATHOLOGY (10/10/2005 0:00 EST) Pathology Report: CYTOPATHOLOGY REPORT Reports generated via electronic interface contain original data; however they are lacking the format of the original report. Caution should be taken when reading/interpreti ng unformatted reports. Name: ? IDA JONG ? Accession #: ? [id number] : ? 1955 (Age: 49) ??F ?Collect Date: ? 10/10/2005 Location: ? [facility] ? Receive Date: ? 10/11/2005 Provider: ?HEIKE COREA Copy to: ? Specimen/Source: ?ThinPrep Pap Test, Cervix/Endocervix, processed on [facility] ThinPrep Imaging System, with manual evaluation Last Menstrual Period: ? 08/31/05 Other: ? HPVA - HPV testing requested if ASC-US on the current ThinPrep Pap test. ? SPECIMEN ADEQUACY ? Satisfactory for Evaluation - transformation zone component absent GENERAL CATEGORIZATION ? Negative for Intraepithelial Lesion or Malignancy ? Document reviewed and electronically signed by: ? ANABELLE Oliva(ASCP) ? Report Date: ??10/13/2005 08:29 End of Report [facility] 10/10/2005 10/11/2005 us Heike Lea PA-C PATHOLOGY ORDERABLES Fin al Result [facility] [address] [place] [address] documented in this encounter Visit Diagnoses Not on filedocumented in this encounter
--- OUTSIDE RECORDS SUMMARY | 2024-08-20 16:06 | XMS_ITS | Encounter Summary ---
Author Organization [facility] Address [address] [place] [address] Care Team Providers Care Ear Mold Laboratory Technician Name Role Phone Calista Leiva NP Primary Care Provider [phone] Encounter Details Date Type Department Care Team (Late st Contact Info) Description 04/28/2014 Results Only [facility] [phone] Rafat Reeves PA-C [address] [place] [address] Social History Tobacco Use Types Packs/Day Years [...] Diagnosis Comments PAP TEST- RESULT ONLY Routine 04/28/2014 0:00 EDT documented in this encounter Results * PAP TEST- RESULT ONLY (04/28/2014 0:00 EDT) Pathology Report: CYTOPATHOLOGY REPORT Reports generated via electronic interface contain original data; however they are lacking the format of the original report. Caution should be taken when reading/interpreti ng unformatted reports. Name: ? JONG PRIETO ? Accession #: ? [id number] : ? 1955 (Age: 58) ??F ?Collect Date: ? 04/28/2014 Location: ? [facility] ? Receive Date: ? 04/30/2014 Provider: ?RAFAT REEVES PAC Copy to: ? Specimen/Source: ?Pap Test, Cervix/Endocervix, ThinPrep Imaging System with manual evaluation Last Menstrual Period: ? 8 yrs ago ? SPECIMEN ADEQUACY ? Satisfactory for Evaluation - assessment of transformation zone component not applicable ( e.g. atrophy, vaginal sample, hysterectomy) - scant squamous epithelial component secondary to excessive blood GENERAL CATEGORIZATION ? Negative for Intraepithelial Lesion or Malignancy ? Document reviewed and electronically signed by: ? NADIA Kwon(ASCP) ? Report Date: ??05/06/2014 08:56 End of Report [facility] 04/28/2014 04/30/2014 us Rafat COREA-Stephanie PATHOLOGY ORDERABLES Madhuri garcia Result Performing Organization Address City/State/[facility] Co de Phone Number [facility] CRAIN [address] [place] [address] documented in this encounter Visit Diagnoses Not on filedocumented in this encounter Care Teams Ear Mold Laboratory Technician Relationship Specialty Start Date End Date Calista Leiva NP [facility] [address] [place] [address] PCP - General 08/12/13 documented as of this encounter
--- OUTSIDE RECORDS SUMMARY | 2024-08-20 16:06 | XMS_ITS | Clinical Summary ---
Author Organization [facility] Address [facility] [place] [address] Care Team Providers Care Shiatsu Therapist Name Role Phone Unknown Primary Care Provider Unavailabl e Allergies No known active allergies Medications Medication Sig Dispensed Refills Start Date End Date Status atorvastatin (LIPITOR) 20 mg tablet Take 20 mg by mouth daily. Active atenolol (TENORMIN) 50 mg tablet Take 50 mg by mouth daily. Active ranitidine (ZANTAC) 300 mg tablet Take 300 mg by mouth nightly. Active NIFEdipine (ADALAT CC) 30 mg 24 hr tablet Take 30 mg by mouth daily. Active acetaminophen (TYLENOL) 325 mg tablet Take 2 tablets by mouth every 4 hours as needed for Pain (mild pain). 30 tablet 1 02/20/2014 Active senna-docusate (PERICOLACE) 8.6-50 mg per tablet Take 1-2 tablets by mouth 2 times daily as needed for Constipation. 60 tablet 11 02/20/2014 Active amitriptyline (ELAVIL) 50 mg tablet Take 50 mg by mouth nightly. HCL Active aspirin 81 mg EC tablet Take 81 mg by mouth nightly. Active CELEBREX 200 mg Capsule 0 08/05/2014 Active HYDROmorphone (DILAUDID) 2 mg Tablet Take 1 tablet by mouth every 6 hours as needed for Pain. 60 tablet 0 09/26/2014 Active Active Problems Problem Noted Date Diagnosed Date History of TB (tuberculosis) 02/18/2014 Overview (02/18/2014): Treated many years ago VILLEGAS (dyspnea on exertion) 02/18/2014 Overview (02/18/2014): Pt reports since her history of TB Cervical myelopathy 02/18/2014 Social History Tobacco Use Types Packs/Day Years Used Date Smoking Tobacco: Never Smokeless Tobacco: Never Alcohol Use Standard Drinks/Week Comments No 0 (1 standard drink = 0.6 oz pur e alcohol) Sex and Gender Information Value Date Recorded Sex Assigned at Not on file Gender Identity Not on file Sexual Orientation Not on file Last Filed Vital Signs Vital Sign Reading Time Taken Comments Blood Pressure 116/68 11/24/2014 12:50 PM EDT Pulse 84 02/20/2014 8:49 AM EDT Temperature 36.7 ??C (98.1 ??F) 02/20/2014 8:49 AM ED T Respiratory Rate 16 02/20/2014 8:49 AM EDT Oxygen Saturation 99% 02/20/2014 8:49 AM EDT Inhaled Oxygen Concentration - - Weight 63.5 kg (140 lb) 11/24/2014 12:50 PM EDT Height 149.9 cm (4' 11) 11/24/2014 12:50 PM EDT Body Mass Index 28.28 11/24/2014 12:50 PM EDT Plan of Treatment Health Maintenance Due Date Last Done Comments CT Colonography 1955 Colonoscopy 1955 Colorectal Cancer Screening 1955 FIT DNA 1955 FIT 1955 Sigmoidoscopy (10 year) with FIT yearly 1955 Sigmoidoscopy 1955 Hepatitis C Screening 1972 Tetanus/Diphtheria/Pertussis Vaccines (1 - Tdap) 12/20 Breast Cancer Share Decision Needed 1994 Breast Cancer screening 1994 Zoster vaccine (1 of 2) 2004 Advance Directive 2009 Bone Density Scan 12/21/2019 Pneumoccocal Vaccine: 65+ (1 of 1 - PCV) 12/21/2019 Covid-19 Vaccine (1 - 2023- season) 2024 Influenza (Flu) vaccine (1 o f 1 - Influenza standard series) 05/05/2024 Medical Devices Implanted Type Area Business Transformation Analyst Device Identifier Shelf Expiration Date Model / Serial / Lot Graft,Bn,Cerv, Forg,Lrd,7mm ([id number]) (Autoreq) - [id number] Implanted:Qty: 1 on 02/18/2014 by Odilon Radford MD at [facility] IMPLANTS DO NOT USE [employer] - [id number] 11/23/2018 865.407S / / [id number] Graft,Bn,Cerv, Forg,Lrd,7mm ([id number]) ([employer]oreq) - [id number] Implanted:Qty: 1 on 02/18/2014 by Odilon Radford MD at [facility] IMPLANTS DO NOT USE [employer] - [id number] 11/22/2018 865.407S / / [id number] Plate,Prvdce,C erv,3-Lvl,48mm ([id number]) (Autoreq) - [id number] Implanted:Qty: 1 on 02/18/2014 by Odilon Radford MD at [facility] IMPLANTS DO NOT USE [employer] Workout - [id number] 150.348 / / Screw,Prvdce,V ar,Sdrl,4.2x14 mm ([id number]) (Autoreq) - [id number] Implanted:Qty: 8 on 02/18/2014 by Odilon Radford MD at [facility] IMPLANTS DO NOT USE [employer]out - [id number] 150.614 / / Explanted Type Area Business Transformation Analyst Device Identifier Shelf Expiration Date Model / Serial / Lot Pin,Distrct,Ti ,Yel,Strl,14mm ([id number]) - [id number] Explanted:Qty: 4 at [facility] IMPLANTS [employer] - [id number] / / Screw.Prvdce,T emp,Fix ([id number]) (Autoreq) - [id number] Explanted:Qty: 2 on 02/18/2014 by Odilon Radford MD at [facility] IMPLANTS DO NOT USE [employer] Workout - [id number] 650.012 / / Advance Directives * Full Code (Latest Code Status on File) Date Activated Date Inactivated Comments 02/17/2014 12:02 PM 02/20/2014 11:50 AM Question Answer Comments Order Status: Initial Order Does patient have decision m aking capacity? Yes, Order is based on Patients wishes. Care Teams Shiatsu Therapist Relationship Specialty Start Date End Date Unknown None PCP - General 03/09/21
--- OUTSIDE RECORDS SUMMARY | 2024-08-20 16:06 | XMS_ITS | Encounter Summary ---
Author Organization [facility] Address [address] [place] [address] Care Team Providers Care Cargo Service Supervisor Name Role Phone Calista Leiva NP Primary Care Provider [phone] Encounter Details Date Type Department Care Team (Late st Contact Info) Description 08/02/2017 Results Only [facility] [phone] Rafat Reeves PA-C [address] [place] [address] Social History Tobacco Use Types [...] Diagnosis Comments PAP TEST- RESULT ONLY Routine 08/02/2017 0:00 EST documented in this encounter Results * PAP TEST- RESULT ONLY (08/02/2017 0:00 EST) Pathology Report: CYTOPATHOLOGY REPORT Reports generated via electronic interface contain original data; however they are lacking the format of the original report. Caution should be taken when reading/interpreti ng unformatted reports. Name: ? JONG PRIETO ? Accession #: ? [id number] ? : ? 1955 (Age: 61) ??F ?Collect Date: ? 08/02/2017 ? Location: ? [facility] ? Receive Date: ? 08/04/2017 ? Provider: RAFAT REEVES PAC Copy to: ? Final Report SPECIMEN ADEQUACY ? Satisfactory for Evaluation - assessment of transformation zone component not applicable ( e.g. atrophy, vaginal sample, hysterectomy) GENERAL CATEGORIZATION ? Negative for Intraepithelial Lesion or Malignancy ?? Hormonal/Contracep tive status: None Specimen/Source: ??Pap Test, Cervix, ThinPrep Imaging System with manual evaluation Document reviewed and electronically signed by: ? NADIA Wheeler(ASCP) ? Report ??Date: 08/16/2017 10:46 HPV with Pap Test ? Date Ordered: ? 08/16/2017 ? Status: ?? Signed Out ?Date Complete: ? 08/17/2017 ? By: ??System Interface ? Date Reported: ? 08/17/2017 ? Interpretation RESULT: Negative for HPV. No E6 or E7 mRNA is detected from HPV types 16,18,31,33,35, 39,45,51,52,56,58, 59,66, and 68 by scow derrick operator mediated amplification. Comments Document reviewed and electronically signed by: ? System Interface ? Report date: 08/17/2017 By the signature above, the attending physician certifies that he/she has personally conducted a gross and/or microscopic examination of the described specimens and rendered or confirmed the above diagnosis. End of Report [facility] 08/02/2017 08/04/2017 us Rafat Reeves PA-C PATHOLOGY ORDERABLES Madhuri garcia Result [facility] [address] [place] [address] documented in this encounter Visit Diagnoses Not on filedocumented in this encounter Care Teams Cargo Service Supervisor Relationship Specialty Start Date End Date Calista Leiva, [facility] [address] [place], [place] [address] PCP - General 08/12/13 documented as of this encounter
--- OUTSIDE RECORDS SUMMARY | 2024-08-20 16:06 | XMS_ITS | Clinical Summary ---
Author Organization [facility] Address [address] [place] [address] Care Team Providers Care Patient Financial Services Manager Name Role Phone Calista Leiva CONSUMER LENDER Primary Care Provider [phone] Social History Tobacco Use Types Packs/Day Years Used Date Smoking Tobacco: Never Assessed Comments Unknown Sex and Gender Information Value Date Recorded Sex Assigned at Not on file Legal Sex Female 18:33 EST Gender Identity Not on file Sexual Orientation Not on file Plan of Treatment Health Maintenance Due Date Last Done Comments Hepatitis C Screen 1955 Fall Risk Screening 12/21/2019 COVID-19 Vaccine (2023- season) 2024 RSV Immunization ( o r 60+ Years) (1 - 1-dose 75+ series) 2029 Care Teams Patient Financial Services Manager Relationship Specialty Start Date End Date Calista Leiva, CONSUMER LENDER [facility] [address] [place] [address] PCP - General 08/12/13
--- OUTSIDE RECORDS SUMMARY | 2024-08-20 16:06 | XMS_ITS | Encounter Summary ---
Author Organization [place] [address] Care Team Providers Care Aviation Electronics Technician Name Role Phone Rafat Spence Primary Care Provider [phone] Reason for Visit * Reason Onset Date Comments Other 10/21/2014 wanting to provi de info that was forgotten yesterday Encounter Details Date Type Department Care Team (Late st Contact Info) Description 10/21/2014 Telephone [place] [phone] Stefanie Shen, RN Other (wanting to provide info that was forgotten yesterday) Social History Tobacco Use Types Packs/Day Years [...] Telephone Encounter - Stefanie Shen, RN - 10/21/2014 3:01 PM EST Received call from pt's daughter who was present at yesterday's appt with Dr Radford following her sedated MRI. Patient's daughter calling on behalf of her mother as they were both in attendance at yesterday's appt with Dr Radford and forgot to advise Dr Radford of the intermittent sharp pain in her centralback between shoulder blades. Questioning if there were findings on the MRI that would explain these symptoms; also asking if knowing about this pain if Dr Radford's recommendations would change. Advised caller that Dr Radford was not in clinic to day; that I would provide this update and then call her mother (pt- Jong Oliva) with an update at [phone] Radford; awaiting response. 10/22/14 Call placed to pt having had the opportunity to review above with Dr Radford. Left message requesting return call from pt. Pt returned call; advised Ms Oliva that Dr Radford was appreciative of the update; that Dr Radford advised that the pain between her shoulder blades, like the numbness/tingling is not worrisome; that he would recommend continued watchful waiting and physical therapy. Dr Radfordindicated that he would not alter the plan discussed given the intra scapular pain. Patient voiced appreciation for the call; she indicated that she was scheduled for physical therapy on Monday. documented in this encounter Plan of Treatment Not on file documented as of this encounter Visit Diagnoses Not on filedocumented in this encounter Care Teams Aviation Electronics Technician Relationship Specialty Start Date End Date Rafat Spence PA [address] [place] [address] PCP - General 09/26/14 03/08/21 documented as of this encounter
--- OUTSIDE RECORDS SUMMARY | 2024-08-20 16:06 | XMS_ITS | Encounter Summary ---
[facility] [place] [address] Care Team Providers Care Aircraft Painter Apprentice Name Role Phone Rafat Spence Primary Care Provider Encounter Details Date Type Department Care Team (Late st Contact Info) Description 11/25/2014 Telephone [place] [phone] Rubina Finn Social History Tobacco Use Types Packs/Day Years [...] encounter Miscellaneous Notes * Telephone Encounter - Rubina Finn - 11/25/2014 2:27 PM EDT Patient called requesting that the Neurology referral be sent somewhere closer to her home. Spoke with Stefanie Saldaña who changed the referral to external and faxed [facility] to [facility] in [place], [place]. Patient will contact the Spine center for f/u with Dr. Radford once she has had her appointment with a neurologist. documented in this encounter Plan of Treatment Not on file documented as of this encounter Visit Diagnoses Not on filedocumented in this encounter Care Teams Aircraft Painter Apprentice Relationship Specialty Start Date End Date Rafat Spence PA [address] [place], [place] [id number] PCP - General 09/26/14 03/08/21 documented as of this encounter
--- OUTSIDE RECORDS SUMMARY | 2024-08-20 16:06 | XMS_ITS | Encounter Summary ---
Author Organization [facility] Address [facility] [place] [address] Care Team Providers Care Bakery Manager Name Role Phone Calista Paniagua APRN Primary Care Provider [phone] Encounter Details Date Type Department Care Team (Latest Contact Info) Description 02/17/2014 11:06 AM EDT - 02/20/2014 9:48 AM EDT Hospital Encounter [address] [place] [id number] Jason Radford MD [facility] [place] [address] Cervical myelopathy Discharge Disposition: Home Social History [...] Sign Reading Time Taken Comments Blood Pressure 118/59 02/20/2014 8:49 AM EDT Pulse 84 02/20/2014 8:49 AM EDT Temperature 36.7 ??C (98.1 ??F) 02/20/2014 8:49 AM ED T Respiratory Rate 16 02/20/2014 8:49 AM EDT Oxygen Saturation 99% 02/20/2014 8:49 AM EDT Inhaled Oxygen Concentration - - Weight 65.8 kg (145 lb) 02/17/2014 12:10 PM EDT Height 149.9 cm (4' 11) 02/17/2014 12:10 PM EDT Body Mass Index 29.29 02/17/2014 12:10 PM EDT documented in this encounter Discharge Instructions * Patient Instructions* Don Hamilton PA - 02/19/2014 3:36 PM EDT Primary Reason for Hospitalization: s/p ACDF Condition at Discharge: Stable Discharge Instructions for Spinal Surgery CALL YOUR PHYSICIAN IF: 1. You have a fever greater than 101 degrees Farenheit within one month of your surgery. 2. You have worsening back/neck pain, not controlled with your pain medication. 3. You begin having new trouble moving your arms or legs. 4. You develop pain, burning, urgency/frequency with urination. 5. You develop redness, swelling, or milky or watery drainage from your wound. 6. You have increasing trouble swallowing or breathing after anterior neck surgery. Prescriptions*: The following have been prescribed to control your discomfort after surgery: (X) Narcotic pain medications, such as Percocet, Vicodin, oxycodone or Dilaudid 1. DO NOT use alcohol, drive, or operate heavy or complex machinery while taking these medications. Narcotic pain medications may cause constipation. Stool softeners, such as Colace; mild laxatives, such as Milk of Magnesia, Sennakot, or Ducolax tabs; or enemas may be used if needed and are dixa-xri-cwutruu (OTC) medications available at most local pharmacies. Prunes or prune juice, taken daily, can also be helpful for constipation treatment or p revention and are available at most supermarkets. Driving Restrictions*: - [X] No driving until your follow-up with Neurosurgery. Activities: Discuss return to work or school with your surgeon. No heavy lifting. You may lift what is comfortable to lift with one arm. Nothing greater than 3-5 pounds until re-evaluated by your physician. Avoid pushing and/or pulling objects. No washing stephenson, windows, or floors, and no vacuuming or lifting heavy laundry or grocery bags. No shoveling, mowing lawns, climbing onto roofs or up ladders and no painting. Avoid prolonged periods of straight-back sitting (e.g., no more than 20 minutes at a time), withoutchanging your position. No bending, twisting, or lifting. It is better to bend at the knees. You will be advised at your follow-up appointment when you may resume these activities. Diet: Eat a well-balanced diet. Fresh fruits, vegetables and fiber-containing foods are recommended. Thiswill assist in wound healing. Recommendations: Take it easy for two weeks. Remember, If it hurts, don't do it. Take several slow, short walks each day for the first two weeks, and gradually increase your distance. We recommend at least 4 times a day. You can go up and down stairs, but take your time and make sure your feet are securely placed on each step. You can resume sexual activity over the next several weeks. You should be positioned on your back or side. Ankle pump exercises (like pressing and releasing the gas pedal) should be done several times each day until you are back to your normal activities. Wound Care: After 4 days, you can shower per usual routine and wash the incision area gently. Pat incision dry with a clean, dry towel. Do not submerge the wound under water (avoid spas, pools and bathtubs) until it is fully healed. Do not use creams, oils, or ointments on the wound. Keep the wound open to air if it is not draining. Comfort: Some incision soreness can be expected. Take your pain medication as needed and prescribed. Taper use of pain medication as pain lessens. After neck surgery, your throat may be a little sore for the first 2-3 days. This is normal. You may have some voice hoarseness after neck surgery. This should improve over several days. Follow-up Appointments: (X) Please follow-up in Neurosurgery Clinic with: (X)Dr. Radford in 4-6 weeks. (X) Radiology with f/u appointment: (X)xray: (X)cervical (X)AP/LAT Please call the Neurosurgery Clinic if you have not received a scheduled appointment in the mail within 2-3 weeks. (X)You have absorbable sutures. They will absorb on their own. Steri strips will flake-off gradually. Important Phone Numbers: Outpatient Nurse: Mayuri Gonzalez Inpatient Nurses: Neurosurgical Resident Underwriting Sales Representative (after 5pm or before 8am): Neurosurgery offices (weekdays between 8am-5pm): Dr. Radford: Dr. Russell: Pediatric Patients , Adult [phone] Dr. Walker: Dr. Velasquez: Dr. Cortez: Dr. Alvarez Don Hamilton, Physician Website Developer Judy Richmond, Physician Website Developer Don Lu, Physician Website Developer Trista Bergman, Nurse Practitioner Your surgeon may not be Underwriting Sales Representative, especially during the night or on weekends, so be ready to tell about yourself and your surgery when you call. CC: Primary Care Physician: CALISTA PANIAGUA APRN documented in this encounter Medications at Time of Discharge Medication Sig Dispensed Refills Start Date End Date acetaminophen (TYLENOL) 325 mg tablet Take 2 [...] tablet Take 30 mg by mouth daily. HYDROmorphone (DILAUDID) 2 mg tablet Take 1-3 tablets by mouth every 4 hours as needed for Pain. 60 tablet 0 02/20/2014 04/21/2014 documented as of this encounter Progress Notes * Jenna Collins - 02/20/2014 9:42 AM EDT Office of Care Management/Consulting Systems Engineer Patient Name: Jong Oliva : 1955 Patient has been offered a SNF bed at [facility].. Family arranged for a 10:00 transport. No MD to MD report necessary. Please call Nursing Report to [phone], ask for industrial relations worker. Info to accompany patient: Narcotic Prescriptions Copies of Medication Administration Records and IV sheets for past 10 days. [place] PASSR Plan: Consulting Systems Engineer will be available to the patient and CRC for further assistance. Patient will be discharged to: [facility] [address] [place] [address] Jenna Collins Consulting Systems Engineer * Elaine Brown RN - 02/20/2014 9:10 AM EDT Pt d/c to rehab per md order. Patient AOx4 hrr, lung sounds clear, no n/v sob or chest pain at timeof discharge. +bs, lbm 02/19/14, voiding clear yellow urine. Patient ambulating with walker and 1 assist at this time. Pain well controlled with dilaudid All LDA's removed. All belongings home with patient. Prescriptions given to patient, all discharge instructions reviewed with patient. All questions answered. Report to [facility] called, and report faxed. Please see flowsheet for full assessment. ELAINE BROWN RN * Ivy Avalos - 02/20/2014 6:59 AM EDT NEUROSURGERY PROGRESS NOTE Jong Oliva [id number] 1955 ID: 58 y.o. 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 ceFAZolin 1 g Intravenous Q8H ??? atenolol 50 mg Oral Daily ??? atorvastatin 20 mg Oral QPM ??? NIFEdipine 30 mg Oral Daily ??? sodium chloride 0.9 % 5 mL Intravenous BID ??? senna-docusate 1-4 tablet Oral BID ??? esomeprazole 40 mg Oral Daily Or ??? esomeprazole 40 mg Intravenous Daily ??? [DISCONTINUED] celecoxib 400 mg Oral BID Continuous Infusions: ??? [DISCONTINUED] sodium chloride 0.9% with potassium chloride 20 mEq 80 mL/hr (02/18/142031) EXAM: Temp: [36.5 ??C (97.7 ??F)-36.8 ??C (98.2 ??F)] Heart Rate: [73-88] Resp: [16-18] BP: (105-135)/(52-79) SpO2: [96 %-100 %] I/O last 3 completed shifts: In: 2440 [P.O.:600; I.V.:1840] Out: 5995 [Urine:4450; Other:1445; Blood:100] GEN:NAD NEURO:AA+Ox3 Speech fluent and appropriate. PERRL. EOMI. No facial asymmetry Tongue midline MOTOR: RUE:4/5 licensing officer, 4/5 wrist extension, 5/5 biceps, 4/5 triceps LUE: 4/5 licensing officer, 4/5 wrist extension, 5/5 biceps, 4/5 triceps RLE: 3/5 hip flexion, 3/5 knee extension, flexion, 3/5 plantarflexion, 3/5 dorsiflexion LLE: 4/5 hip flexion, 5/5 knee extension, flexion, 5/5 plantarflexion, 5/5 dorsiflexion No pronator drift LT sensation intact x 4 Dressings dry and intact Recent Labs Basename 02/20/14 0421 02/19/14 0320 02/18/14 0436 WBC 9.2 10.9* 4.7 HGB 12.6 12.7 12.9 PLATELET 172 177 189 Recent Labs Basename 02/20/14 0421 02/19/14 0320 02/18/14 0436 NA 137 134* 135 K 5.0 5.0 4.6 CL 101 99 103 CO2 28 22 23 BUN 12 12 19* CREATININE 0.71 0.88 0.88 Recent Labs Basename 02/18/14 1501 PT 13.3 INR 1.0 A/P: 58 y.o. 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 POD 2 C4-5, C6-7 ACDF. Neurolgically stable post-op with some improvement in upper extremity strength. Rehab today. 1. Neuro: Close monitoring. Q4 neuro checks. 2. CVS: BP control, keep SBP<160 3. Resp: IS 4. GI: regular diet, nexium 5. Hem: Hold off anticoagulation. SCDs. 6. ID: No issues 7. : No issues 8. FEK: IVF until good PO. Monitor lytes. Ivy Avalos [id number] * Theodore Bowman, PT - 02/19/2014 3:00 PM EDT Physical Therapy Progress note Patient profile: Jong lOiva is a 58 y.o. 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 Pt s/p C4-5, C6-7 ACDF 02/18/14. New post op orders received Social History: Patient lives alone in [place], [place]. Ramp into house Baseline Mobility: has been ambulating with a cane for approx 10 wekks and a FWW this past week. Frequent falls. Pt reports she falls backwards sometime and forwards other times. She also feels her legs buckle from under her Equipment at home: has FWW, cane. W/C accessible home Precautions/Special Considerations: At risk to fall. As per orders activity as tolerated. Likely no bending, twisting or lifting > 5-10 lbs Staff Communication/Mobility Recommendations: mobilize with 1-2 asist, FWW and gait belt. AT RISK TO FALL S: I can move my foot now O: Pt seen 25 min for functional mobility. Vitals: Last value Range last 8 hrs Temperature Temp: 36.5 ??C (97.7 ??F) Temp: [36.5 ??C (97.7 ??F)] Heart Rate Heart Rate: 88 Heart Rate: [82-88] Blood Pressure BP: 105/52 mmHg BP: (105-135)/(52-69) Respiratory Rate Resp: 18 Resp: [16-18] SpO2 SpO2: 96 % SpO2: [96 %-98 %] Pain: pt complaining of mostly some lower back pain, minimal neck pain Sensation: numbness and tingling neck down right> left -pt feels no change in pre op Strength: Right ADF now 2/5 post op EHL 2+/5 post op Pt gait also seems slightly better than pre op with more control around the knees and increased ADFduring swing phase on the right. Still has trendelenburg on the right. Neuromuscular: right hand (with clawing of fingers), some wrist and finger extension today Bed Mobility: N/E. Pt received in CC Balance: Sitting balance: good Standing balance: with FWW and 1 CG assist Dynamic/gait balance: decreased but not formally tested today Transfers: sit><stand with CG assist, using U/E s W/C Mobility: N/E Gait: amb with FWW, step-to gait, x approx 60 ft to front of nsg desk and gordon Assessment: with history of C5-6 ACDF in 2001,and now with myelopathy and adjacent level disease. Pt s/p C4-5, C6-7 ACDF 02/18/14. Pt has some improvement in her symptoms post op: improved R ADF and EHL, improved gait but still at risk to fall and ongoing U/E and L/E symptoms. Pt would benefit from rehab Goals: To be achieved by 02/25/14 Pt to participate in PT with lyudmila level of pain Supine><sd lying ind using sd railing Sd lying><sitting ind, usign sd railing Sit><stand with supervision and FWW amb x 100 ft with FWW and CG-S Plan: Recommend rehab to increase her mobility, independence and safety prior to d/c to home. Equipment needs: has FWW Discharge Recommendations: Patient will require 27/03 supervision and assistance. Patient would benefit and tolerate continued daily intensive therapy interventions to maximize functional independence. Occupational Therapy consult Total time spent with patient: 24 minutes Total timed interventions: 24 minutes functional mobility Pager: [phone] THEODORE BOWMAN, PT 02/19/2014 Physical Therapy Rehabilitation Department * Ivy Avalos - 02/19/2014 6:38 AM EDT NEUROSURGERY PROGRESS NOTE Jong Oliva [id number] 1955 ID: 58 y.o. 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 ceFAZolin 1 g Intravenous Q8H ??? atenolol 50 mg Oral Daily ??? atorvastatin 20 mg Oral QPM ??? celecoxib 400 mg Oral BID ??? NIFEdipine 30 mg Oral Daily ??? sodium chloride 0.9 % 5 mL Intravenous BID ??? senna-docusate 1-4 tablet Oral BID ??? esomeprazole 40 mg Oral Daily Or ??? esomeprazole 40 mg Intravenous Daily Continuous Infusions: ??? sodium chloride 0.9% with potassium chloride 20 mEq 80 mL/hr (02/18/142031) EXAM: Temp: [36.5 ??C (97.7 ??F)-36.7 ??C (98.1 ??F)] Heart Rate: [65-94] Resp: [14-18] BP: (110-136)/(51-76) SpO2: [96 %-100 %] I/O last 3 completed shifts: In: 2540 [P.O.:840; I.V.:1700] Out: 3100 [Urine:3100] GEN:NAD NEURO:AA+Ox3 Speech fluent and appropriate. PERRL. EOMI. No facial asymmetry Tongue midline MOTOR: RUE:4/5 licensing officer, 4/5 wrist extension, 5/5 biceps, 4/5 triceps LUE: 4/5 licensing officer, 4/5 wrist extension, 5/5 biceps, 4/5 triceps RLE: 3/5 hip flexion, 3/5 knee extension, flexion, 3/5 plantarflexion, 3/5 dorsiflexion LLE: 4/5 hip flexion, 5/5 knee extension, flexion, 5/5 plantarflexion, 5/5 dorsiflexion No pronator drift LT sensation intact x 4 Dressings dry and intact CARLOS = 55 mL serosanguinous Recent Labs Basename 02/19/14 0320 02/18/14 0436 WBC 10.9* 4.7 HGB 12.7 12.9 PLATELET 177 189 Recent Labs Basename 02/19/14 0320 02/18/14 0436 NA 134* 135 K 5.0 4.6 CL 99 103 CO2 22 23 BUN 12 19* CREATININE 0.88 0.88 Recent Labs Basename 02/18/14 1501 PT 13.3 INR 1.0 A/P: 58 y.o. 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 POD 1 C4-5, C6-7 ACDF. Neurolgically stable post-op with some improvement in upper extremity strength. We willpull CARLOS today and consult PT/OT. 1. Neuro: Close monitoring. Q4 neuro checks. 2. CVS: BP control, keep SBP<160 3. Resp: IS 4. GI: regular diet, nexium 5. Hem: Hold off anticoagulation. SCDs. 6. ID: No issues 7. : No issues 8. FEK: IVF until good PO. Monitor lytes. Ivy Avalos [id number] * Harshad Aguirre RN - 02/18/2014 10:45 PM EDT Patient arrived to unit s/p ACDF, anterior neck dressing in place c/d/i. CARLOS drain with small amt sanguinous output. Patient alert and oriented. Vitals stable, afebrile. Denies pain. HARSHAD AGUIRRE RN * Viviana Dewitt RN - 02/18/2014 8:16 PM EDT 2010 s/p anterior discectomy C4-C5 and C6-C7 with GA-anterior dressing dry& intact with CARLOS collecting bloody-alarms zylugrcsz-defkyxg-zur left radial art line. 2200 meets discharge criteria-report to Harshad Gray * Jason Radford MD - 02/18/2014 2:37 PM EDT NS Staff Please see OPD notes; 58 y.o. Female admitted urgently from clinic yesterday for treatment of rapidly progressive cervical myelopathy; MR demonstrates C4/5 and C6/7 spondylosis; I think best option in light of time course and current exam is to proceed expeditiously to decompression; clear discussion of risks of anesthesia, bleeding, infection, injury to trachea, esophagus, RLN, great vessels, injury to spinal cord, including possibility of paralysis, C5 syndrome, failure of fusion or instrumentation, failure to relieve symptoms or failure to improve all explicitly discussed, all questions answered, she wishes to proceed. * Rubina Srinivasan RN - 02/18/2014 2:12 PM EDT Okay to draw labs, type and cross and PT/PTT, once pt back in OR per Dr. Avalos and Dr. Mix. * Jackie Montilla OT - 02/18/2014 8:22 AM EDT Occupational Therapy Note Order received. Chart reviewed. Plan is OR today. Will continue to monitor and initiate evaluation when appropriate. Jackie Montilla, OTR Pager [phone] * Ivy Avalos - 02/18/2014 6:48 AM EDT NEUROSURGERY PROGRESS NOTE Jong Oliva [id number] 1955 ID: 58 y.o. 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 atenolol 50 mg Oral Daily ??? atorvastatin 20 mg Oral QPM ??? celecoxib 400 mg Oral BID ??? NIFEdipine 30 mg Oral Daily ??? sodium chloride 0.9 % 5 mL Intravenous BID ??? senna-docusate 1-4 tablet Oral BID ??? esomeprazole 40 mg Oral Daily Or ??? esomeprazole 40 mg Intravenous Daily ??? [COMPLETED] LORazepam 0.5 mg Intravenous Once Continuous Infusions: ??? sodium chloride 0.9% with potassium chloride 20 mEq 80 mL/hr (02/18/14 0516) EXAM: Temp: [36.5 ??C (97.7 ??F)-36.9 ??C (98.4 ??F)] Heart Rate: [58-70] Resp: [16-20] BP: (100-137)/(53-80) SpO2: [97 %-100 %] I/O last 3 completed shifts: In: 840 [P.O.:840] Out: 200 [Urine:200] GEN:NAD NEURO:AA+Ox3 Speech fluent and appropriate. PERRL. EOMI. No facial asymmetry Tongue midline MOTOR: RUE:3/5 licensing officer, 4/5 wrist extension, 5/5 biceps, 4/5 triceps LUE: 3/5 licensing officer, 4/5 wrist extension, 5/5 biceps, 4/5 triceps RLE: 3/5 hip flexion, 4/5 knee extension, flexion, 4/5 plantarflexion, 3/5 dorsiflexion LLE: 4/5 hip flexion, 5/5 knee extension, flexion, 5/5 plantarflexion, 5/5 dorsiflexion No pronator drift LT sensation intact x 4 Recent Labs Basename 02/18/14 0436 WBC 4.7 HGB 12.9 PLATELET 189 Recent Labs Basename 02/18/14 0436 NA 135 K 4.6 CL 103 CO2 23 BUN 19* CREATININE 0.88 No results found for this basename: PT:3,INR:3 in the last 72 hours A/P: 58 y.o. 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 Plan for OR for ACDF today. Will keep NPO. 1. Neuro: Close monitoring. Q4 neuro checks. 2. CVS: BP control, keep SBP<160 3. Resp: IS 4. GI: NPO, nexium 5. Hem: Hold off anticoagulation. SCDs. 6. ID: No issues 7. : No issues 8. FEK: IVF until good PO. Monitor lytes. Ivy Avalos [id number] * Marta Soler RN - 02/17/2014 12:04 PM EDT Patient arrived to floor via bed from Clinic. Patient A&O x 3, lungs clear, heart rate regular.Patient has hypoactive bowel sounds and stats their last BM was on 02/16/14. Patient denies tinglingbut states she has numbness from then neck down, and report muliple falls in the past few days. Patient also has R sided weakeness and no motor function in RLE, drags R foot with ambulation. Patient strength 4/5 to RUE, LUE, and LLE. PEERLA intact. Patient states their pain level is 4/10. Patient denies chest pain or shortness of breath. Patient oriented to room, call eaton, IS. RN will monitor patient. MARTA SOLER RN documented in this encounter Procedure Notes * Provider, Scanning - 02/21/2014 9:10 AM EDTAssociated Order(s): SCAN DOC: IMPLANTABLE DEVICES documented in this encounter Miscellaneous Notes * Miscellaneous - Provider, Scanning - 02/21/2014 9:10 AM EDT * Miscellaneous - Provider, Scanning - 02/21/2014 9:10 AM EDT * Op Note - Ivy Avalos - 02/20/2014 6:01 PM EDT [facility] [place] Patient Name: Jong Oliva : [id number] MR#: [id number] Case Date: 02/18/2014 Surgeon: Surgeon(s) and Role: * Jason Radford MD - Primary * Ivy Avalos MD - Resident-Surgeon Celso Preoperative diagnosis: HERNIATED DISC Postoperative diagnosis: HERNIATED DISC Procedure(s): DISCECTOMY, ANT, CERVICAL , ONE LVL EA. ADD'L SPACE, CX ANT. CX. FUSION INCLUD. MIN. DISCECTOMY; BELOW C2 @ANT. FUSION, INCLUDE. MIN. DISCECTOMY; EA. ADD'L LVL ALLOGRAFT FOR SPINE SURGERY ONLY; STRUCTUAL @ANT. SPINAL INSTRUMENTATION, 2-3 VERTEBRA, SEGMENTED MODIFIER GLOBUS PROVIDENCE MODIFIER, GLOBUS FORGE Anesthesia: General endotracheal Estimated Blood Loss: 100mL Drains: CARLOS Disposition: awakened from anesthesia, extubated and taken to the recovery room in a stable condition, having suffered no apparent untoward event. Condition: doing well without problems (Please see the Surgical Encounter Summary for any Implant and Specimen details pertinent to this patient.) HPI/Indications: Jong Oliva is a 58-year-old woman with prior C5-6 ACDF. She presented to Dr. Radford's clinic with signs of progressive myelopathy including severe hand weakness and loss of dexterity as well as difficulty walking with predominantly right leg weakness. She was admitted from clinic and scheduled for adjacent C4-5 and C6-7 ACDF after an MRI of the total spine revealed herniated disks at these two adjacent levels with cord compression and some signal abnormality at the C6-7 level. Procedure in Detail: Patient was seen and interviewed in her inpatient room. An up-to-date history and physical as well as a consent form were obtained. The patient was brought back to the operating room by Anesthesia. She identified by her name cynthia. General endotracheal anesthesia was induced without complication. Patient was then positioned supine with head on a gel roll and a towel roll underneath the scapula so that her head was in slight extension. A preoperative x-ray was taken to ensure that we could appropriately visualize the levels of interest. The planned incision was marked on the left side of the neck. We chose this side, because her prior surgery had been from the right and she had no evidence of vocal cord dysfunction on a laryngoscopy by ENT. The skin was then prepped and draped in the usual sterile fashion. Four mL of 1% lidocaine with 1:100,000 parts epinephrine was infiltrated. Skin was opened with a 10 blade. Bovie electrocautery was then used to divide the platysma. Metzenbaum scissors was then used to divide the medial edge of the sternocleidomastoid, dissected free from the deep cervical fascia. Blunt dissection was undertaken with fingertip on the carotid pulse until the prevertebral fascia was reached. Cloward retractors were then used to visualize the vertebral fascia and peanuts and Metzenbaum scissors were then used to dissect the prefascial tissue until the disk space and the anterior vertebral bodies were clearly visible. We inserted two spinal needles, one in the C4-5 disk space and one in the C6-7 disk space. We then took a fluoroscopic image and confirmed that those were in fact the correct locations of our spinal needles. The previously fused C5-6 level was also clearly seen on x-ray. We turned our attention first to the C6-7 disk space, as this was the disk space with the most severe disease. Boss retractor was measured and deployed. The Bovie electrocautery was then used to jonas the disk level as well as to clear the soft tissue off of the vertebral bodies until bone was visible. The distractor pins were then screwed into the vertebral bodies and the retractor was deployed. At this point, we brought in the microscope. Under microscopic vision, a diskectomy was performed using a 15 blade to open the annulus and then combination of curette, pituitary, and Kerrison rongeurs to remove all the disk fragments. A large disk fragment was seen at 6-7. We then used a nerve hook to tease apart the PLL and elevate this and cut the PLL with a 1 Kerrison, taking care not to cause a durotomy. The diskectomy was extended bilaterally until the nerve roots were free on either side. Kerrison rongeur was then used to undercut the superior endplate of 7 and the inferior endplate of 6 until all residual disk and ligament was removed. At this point, a high-speed pneumatic drill was then used to even out the endplates bilaterally and to smooth the anterior vertebral bodies to prepare them for plate placement. Once we were satisfied with the C6-7 diskectomy, Gelfoam with thrombin was placed in the epidural space to slow bleeding and the retractors were removed, leaving the distraction posts in place so we could turn our attention to the C4-5 level. At this level, Bovie electrocautery was again used to elevate the soft tissue off the anterior vertebral bodies. Distraction pins were placed in line with each other as well as the disk space, and the Boss retractor as well as the distraction post retractor was deployed for better visualization. Under microscopic visualization, the diskectomy was performed in similar manner with curettes, Kerrison rongeurs, and pituitary. A copious amount of disk material was also freed at this level and the Kerrison was used to undercut the PLL as well as the posterior endplates bilaterally, taking care to use a nerve hook to elevate the ligament to avoid durotomy. The diskectomy was carried out bilaterally until the nerve roots were free and palpated with the nerve hook. Having completed the diskectomy at the 4-5 and the 6-7 level, we then proceeded to place the allograft, initially at the 6-7 level. This was sized and a 7 mm allograft with lordotic curve was selected. This was placed in the 4-5 and then 6-7 disk space under microscopic visualization without difficulty, appeared to fit well. Of note, with the intraoperative x-ray obtained before incision, we noted that her kyphotic deformity seen on the MRI had been reduced. Having seen this, it was decided instead of performing two separate PEEK implants we would perform allograft fusion and try to place a large three-level plate to help preserve correction of kyphosis. We then measured the appropriate plate and this turned out to be a 48 mm three-level plate. We had some difficulty visualizing both the superior and inferior aspects of the plate simultaneously due to restriction of our incision, and so the incision was expanded and the soft tissue dissection was also expanded to allow for better visualization. Once the plate was in place, we used temporary pins in two of the pinholes to ensure that the fit of the plate and the alignment of the plate were adequate. Eight 14 mm screws were then placed in the standard trajectories and after the first four screws were placed an x-ray was taken to confirm appropriate screw placement without violation of the disk spaces at the 7-8 or 3-4 level. When all of the screws were in place, an x-ray was taken to again confirm appropriate placement and level, and then all eight screws were locked with the locking mechanism on the plate until an audible click was heard. Prior to this, all the distraction posts were removed. We then inspected the entire cavity and were satisfied with the alignment and placement of the plate. The wound was then washed with bacitracin-impregnated lactated Ringer's. Meticulous hemostasis was undertaken with bipolar and Bovie electrocautery. The wound was then closed in layered fashion using 3-0 sutures in interrupted fashion for the platysma and a 3-0 Monocryl in running subcuticular fashion for the skin. At the end of the case, all counts were correct. Dr. aRdford was present and scrubbed for the entire procedure. The incision was dressed with Mastisol, Steri-Strips, sterile 4 x 4 gauze, and Medipore tape. Patient was then awakened from anesthesia and transferred to the PACU in stable condition, having suffered no untoward event. * Care Management - Drake Kathleen RN - 02/20/2014 9:18 AM EDT Office of Care Management Clinical Observation Assistant (CRC) She Kathleen RN, BSN -[facility] NeuroSurgery Voice Mail [phone] Pager #[phone] DISCHARGE NOTE: ROOM: [facility] ATTENDING: Jason Radford MD Reason for Hospitalization: s/p ACDF Patient is medically ready for d/c. Patient has been offered a bed at [place], [place]. Family and patient are aware and agree with the plans. Patient will be transported via private transportation, daughter. P: Plan for transfer to SNF Level rehab bed. Will continue to be available should additional needs arise. * Plan of Care - Miguel Jimenez RN - 02/20/2014 12:07 AM EDT Problem: Skin Integrity Impairment, Risk/Actual (Adult, Obstetrics) Goal: Identify Signs and Symptoms and Related Risk Factors Signs and symptoms and related risk factors are identified upon initiation of Human Response Clinical Practice Guideline (CPG) Patients skin to be intact at this time. ACDF incision site CDI, steri strips in place. Patient aware to reposition themselves every 2 hours. RN will monitor patients skin. Problem: Fall/Trauma/Injury Risk (Adult, Obstetrics) Goal: Identify Signs and Symptoms and Related Risk Factors Signs and symptoms and related risk factors are identified upon initiation of Human Response Clinical Practice Guideline (CPG) Pt remains free of falls/injuries this shift. Pt calling for assistance when needed appropriately. Environmental modification and fall reduction measures in place. Call light in reach, Masimo on. Problem: Pain, Acute (Adult, Obstetrics) Goal: Identify Signs and Symptoms and Related Risk Factors Signs and symptoms and related risk factors are identified upon initiation of Human Response Clinical Practice Guideline (CPG) Pain is being managed with PO medications at this time with positive affect. Pt requesting medications as needed and is aware to alert staff if pain becomes unmanageable at any time. RN will continueto assess pt's pain level as needed. * Discharge Summary - Don Hamilton PA - 02/19/2014 3:39 PM EDT Inpatient - Discharge Summary Patient Name: Jong Oliva Patient Age: 58 y.o. Birthdate: 1955 Admit date: 02/17/2014 Discharge date and time: 02/20/14 Attending Physician: Jason Radford MD Discharge Diagnoses (Hospital Problems): Active Hospital Problems Diagnosis ??? Cervical myelopathy Resolved Hospital Problems Diagnosis Date Resolved No resolved problems to display. Active Non-Hospital Problems Diagnosis ??? History of TB (tuberculosis) Treated many years ago ??? VILLEGAS (dyspnea on exertion) Pt reports since her history of TB PSH: history of C5-6 ACDF Operations/Major Procedures: 02/18/14 C4-5, C6-7 ACDF, Dr Radford History of Presentation: 58 y.o. 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 There is mild abnormal signal in the cord at this level, which may be due to the disc. 2. Degenerative changes at C4-5 causing central spinal canal stenosis and right neural foraminal stenosis. Hospital Course: Patient was admitted 02/17 and was brought to the OR for C4-5, C6-[address] Radford. Surgical drain was removed POD#1. Patient was evaluated by rehab therapies. She is able to ambulate with FWW and assist but continues to be at risk to fall 2nd U/E and L/E symptoms. She is felt in need on ongoing inpatient rehab. She is now felt stable for discharge. Important Studies and Lab Data: Lab Results Component Value Date/Time WBC 9.2 02/20/2014 4:21 AM HGB 12.6 02/20/2014 4:21 AM HCT 37.4 02/20/2014 4:21 AM PLATELET 172 02/20/2014 4:21 AM NA 137 02/20/2014 4:21 AM K 5.0 02/20/2014 4:21 AM CL 101 02/20/2014 4:21 AM CO2 28 02/20/2014 4:21 AM BUN 12 02/20/2014 4:21 AM CREATININE 0.71 02/20/2014 4:21 AM Pending Studies and Lab Data: None Discharge Conditions/Prognosis: Stable Discharge to: [facility] Discharge Medications: Your Medications As of 02/20/2014 7:58 AM New Medications Dose Details acetaminophen 325 mg tablet Commonly known as: TYLENOL Take 2 tablets by mouth every 4 hours as needed for Pain (mild pain). 650 mg Quantity: 30 tablet Refills: 1 HYDROmorphone 2 mg tablet Commonly known as: DILAUDID Take 1-3 tablets by mouth every 4 hours as needed for Pain. 2-6 mg Quantity: 60 tablet Refills: 0 senna-docusate 8.6-50 mg per tablet Commonly known as: PERICOLACE Take 1-2 tablets by mouth 2 times daily as needed for Constipation. 1-2 tablet Quantity: 60 tablet Refills: 11 Continued medications, unchanged Dose Details atenolol 50 mg tablet Commonly known as: TENORMIN Take 50 mg by mouth daily. 50 mg Refills: 0 atorvastatin 20 mg tablet Commonly known as: LIPITOR Take 20 mg by mouth daily. 20 mg Refills: 0 NIFEdipine 30 mg 24 hr tablet Commonly known as: ADALAT CC Take 30 mg by mouth daily. 30 mg Refills: 0 ranitidine 300 mg tablet Commonly known as: ZANTAC Take 300 mg by mouth nightly. 300 mg Refills: 0 STOPPED Medications celeBREX 400 mg capsule Generic drug: celecoxib FELDENE 20 mg capsule Generic drug: piroxicam FLEXERIL 10 mg tablet Generic drug: cyclobenzaprine Updated Allergies/ADRs: No Known Allergies Follow-up Recommendations for Providers: See Below Instructions Given to Patient at Discharge: Patient Instructions Primary Reason for Hospitalization: s/p ACDF Condition at Discharge: Stable Discharge Instructions for Spinal Surgery CALL YOUR PHYSICIAN IF: 1. You have a fever greater than 101 degrees Farenheit within one month of your surgery. 2. You have worsening back/neck pain, not controlled with your pain medication. 3. You begin having new trouble moving your arms or legs. 4. You develop pain, burning, urgency/frequency with urination. 5. You develop redness, swelling, or milky or watery drainage from your wound. 6. You have increasing trouble swallowing or breathing after anterior neck surgery. Prescriptions*: The following have been prescribed to control your discomfort after surgery: (X) Narcotic pain medications, such as Percocet, Vicodin, oxycodone or Dilaudid 1. DO NOT use alcohol, drive, or operate heavy or complex machinery while taking these medications. Narcotic pain medications may cause constipation. Stool softeners, such as Colace; mild laxatives, such as Milk of Magnesia, Sennakot, or Ducolax tabs; or enemas may be used if needed and are vbzg-vdw-[id number] (OTC) medications available at most local pharmacies. Prunes or prune juice, taken daily, can also be helpful for constipation treatment or p revention and are available at most [facility]. Driving Restrictions*: - [X] No driving until your follow-up with Neurosurgery. Activities: Discuss return to work or school with your surgeon. No heavy lifting. You may lift what is comfortable to lift with one arm. Nothing greater than 3-5 pounds until re-evaluated by your physician. Avoid pushing and/or pulling objects. No washing stephenson, windows, or floors, and no vacuuming or lifting heavy laundry or grocery bags. No shoveling, mowing lawns, climbing onto roofs or up ladders and no painting. Avoid prolonged periods of straight-back sitting (e.g., no more than 20 minutes at a time), withoutchanging your position. No bending, twisting, or lifting. It is better to bend at the knees. You will be advised at your follow-up appointment when you may resume these activities. Diet: Eat a well-balanced diet. Fresh fruits, vegetables and fiber-containing foods are recommended. Thiswill assist in wound healing. Recommendations: Take it easy for two weeks. Remember, If it hurts, don't do it. Take several slow, short walks each day for the first two weeks, and gradually increase your distance. We recommend at least 4 times a day. You can go up and down stairs, but take your time and make sure your feet are securely placed on each step. You can resume sexual activity over the next several weeks. You should be positioned on your back or side. Ankle pump exercises (like pressing and releasing the gas pedal) should be done several times each day until you are back to your normal activities. Wound Care: After 4 days, you can shower per usual routine and wash the incision area gently. Pat incision dry with a clean, dry towel. Do not submerge the wound under water (avoid spas, pools and bathtubs) until it is fully healed. Do not use creams, oils, or ointments on the wound. Keep the wound open to air if it is not draining. Comfort: Some incision soreness can be expected. Take your pain medication as needed and prescribed. Taper use of pain medication as pain lessens. After neck surgery, your throat may be a little sore for the first 2-3 days. This is normal. You may have some voice hoarseness after neck surgery. This should improve over several days. Follow-up Appointments: (X) Please follow-up in Neurosurgery Clinic with: (X)Dr. Radford in 4-6 weeks. (X) Radiology with f/u appointment: (X)xray: (X)cervical (X)AP/LAT Please call the Neurosurgery Clinic if you have not received a scheduled appointment in the mail within 2-3 weeks. (X)You have absorbable sutures. They will absorb on their own. Steri strips will flake-off gradually. Important Phone Numbers: Outpatient Nurse: Mayuri Carlos Inpatient Nurses: Neurosurgical Resident Underwriting Sales Representative (after 5pm or before 8am): Neurosurgery offices (weekdays between 8am-5pm): Dr. Radford: Dr. Russell: Pediatric Patients , Adult [phone] [address] Walker: Dr. Velasquez: Dr. Cortez: Dr. Alvarez Don Hamilton, Physician Website Developer Judy Richmond, Physician Website Developer Don Lu, Physician Website Developer Trista Bergman, Nurse Practitioner Your surgeon may not be Underwriting Sales Representative, especially during the night or on weekends, so be ready to tell about yourself and your surgery when you call. CC: Primary Care Physician: CALISTA PANIAGUA APRN Electronically Signed By: NAHOMY BENAVIDEZ 02/20/2014 * Plan of Care - Elaine Brown RN - 02/19/2014 12:37 PM EDT Problem: Skin Integrity Impairment, Risk/Actual (Adult, Obstetrics) Goal: Skin Integrity/Wound Healing Patient will demonstrate the desired outcomes. Outcome: Present (see interventions, notes) Patient has no apparent skin issues, except incision which is C/D/I. Patient is ambulating with walker and 1 assist. Will continue to monitor. Problem: Fall/Trauma/Injury Risk (Adult, Obstetrics) Goal: Absence of Trauma/Injury/Falls Patient will demonstrate the desired outcomes. Outcome: Present (see interventions, notes) Patient ambulating with walker and 1 assist. Patient's bed in low position, call light/ phone within reach, side rails up x 2, and wearing non-slip socks on feet. Will continue to monitor. Problem: Pain, Acute (Adult, Obstetrics) Goal: Acceptable Pain Control/Comfort Level Patient will demonstrate the desired outcomes. Outcome: Present (see interventions, notes) Patient states pain is a 5/10. Administered dilaudid. Will continue to monitor. * Care Management - Drake Kathleen RN - 02/19/2014 9:32 AM EDT Office of Care Management Clinical Observation Assistant Discharge Facility Referral. Report received from NAHOMY Muse. Patient is s/p ACDF. MD anticipates patient will be medically ready for discharge tomorrow. Patient would benefit from SNF/swingrehab at discharge. ?? Met with patient/family at bedside. Provided [facility] Office of Care Management letter from the Safety And Skill Based Pay Manager pertaining to rehab referrals.. ?? Reviewed levels of rehab including SNF, swing, acute and LTAC. ?? A list that serves the geographical area which the patient resides or the geographical area requested has been provided through [employer] search. ?? Requested patient/family provide at least three choices for referral. Patient/family [place] [address] . Referral to this facility only at this time as daughters work there and want mom to go here only. Patient and family understand that we may need to expand if necessary. Note routed to Consulting Systems Engineer who will communicate referrals to facilities via [employer] program. * Initial Assessments - Jackie Montilla OT - 02/19/2014 8:30 AM EDT Occupational Therapy Evaluation Patient profile: Jong Oliva is a 58 y.o. 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 Pt s/p C4-5, C6-7 ACDF 02/18/14. Active Non-Hospital Problems Diagnosis ??? History of TB (tuberculosis) ??? VILLEGAS (dyspnea on exertion) PMH: C5-6 in 2001 Social History: Patient lives alone in [place], [place]. She is in the progress of getting . She has a ramp into her house,and her home one level. She has a standard toilet and tub shower with grab bars in the home. Baseline Mobility/ADLs: has been ambulating with a cane for approx 10 weeks and a FWW this past week. She has a hx of frequent falls. Pt reports she falls backwards sometime and forwards other times.She also feels her legs buckle from under her. She apparently was managing her own ADLs independently, despite hx of falls. She was standing for showering. She has been on Disability since December of 2005. Equipment at home: has FWW, cane. W/C accessible home Code Status: Full Code Activity Orders:change activity as tolerated Precautions: Falls risk No overt bending, twisting or heavy lifting Subjective: My hands are better than they were. Pt's hands still in claw like position at rest.Pt unable to fully extend fingers. Objective: Seen today for OT evaluation. Cognitive Status/Behavior: alert, oriented to person, place, and time and affect appropriate to mood Communication: Intact Vision & Perception: wearing glasses but reports she usually wears contacts. Range of motion, strength, coordination: Hand dominance: right ?? Bilateral UEs moving anti-gravity and WFL, except for B hands. Pt's hands in claw position at rest. Pt unable to fully extend fingers on either hand. They are better than there were. They are more relaxed. ?? Pt moving L LE freely in bed, but not L. Pt struggling with dorsi flexion on the R and sliding leg side to side. Pt could only partially kick R LE out sitting at the eob. Sensation: c/o pins and needles in her legs, and numbness from elbows to finger tips bilaterally. Pt though intact to touch of extremities. Activities of Daily Living: Upper and lower body dressing and bathing: ?? Pt unable to don her own socks 2' precautions, decreased flexibility, and weakness. ?? Pt was able to don a robe with minimal assistance to bring around back and help start with getting 2nd arm through. ?? Pt standing with min A to complete kristofer-care. Toileting: Aleman catheter out. Pt stating her legs feel weak. Pt not confident walking to bathroom this am. Called stores and ordered commode for Pt's room. Functional Mobility: Supine to sit: minimal assistance and cues for technique with HOB raised slightly Sit to stand: CG A to stand from bed to walker Ambulation: CG A to slowly step from bed to recliner using walker. Pt though not trusting her legs,or with smooth steps. Stand to sit: CG A and cues to reach back Balance: sitting eob with supervision, standing with CG A to min A. IADL???s: Assistance available to patient. Endurance: Information taken from last recorded vitals in flowsheet. Last value Range last 8 hrs Heart Rate Heart Rate: 79 Heart Rate: [79-81] Blood Pressure BP: 136/67 mmHg BP: (130-136)/(67-70) SpO2 SpO2: 100 % SpO2: [96 %-100 %] Pt on room air. Pt c/o fatigue, and of limited standing tolerance. Pt also c/o feeling dizzy, but BP 125/63 after standing and getting to chair. Pain: Discomfort in neck. Informed Consent: The patient agrees to and understands the OT treatment plan and goals. Education: patient educated on Role of occupational therapy/rehabilitation, Transfers, Assistive device/technique, ADL, Safety, Precautions/Protocol, Functional Mobility, Recommendations and Discharge planning and verbalizes understanding. Patient status, treatment, and mobility recommendations discussed with nursing. Assessment: Pt has been seen by OT for evaluation, and she presents with impaired ability to perform daily activities secondary to decreased overall strength, endurance, standing tolerance/balance, and mobility.Pt tolerated getting to the chair with one assist, but was at risk of falling. Ordered commode for Pt to start using, and then work towards walking to bathroom. Pt would benefit from ongoing OT services to maximize functional independence. Recommendations: Equipment needs at discharge: Shower chair and Commode; has walker and cane Discharge Recommendations: Patient will require 24/7 supervision and assistance. Patient would benefit and tolerate continued daily intensive therapy interventions to maximize functional independence. Goals: To be achieved by 03/05 1. Pt will demonstrate independence with precautions/restrictions during ADLs. 2. Pt be supervised with transferring in and out of a shower via shower seat. 3. Pt will be modified independent with seated level shower. 4. Pt will dress self independently using adaptive technique/equipment as needed. 5. Pt will ambulate independently for ADLs with walker. 6. Pt will demonstrate good technique and independence with sit/stand transfers from toilet/chair for ADLs. 7. Monitor hand positioning- ?splinting needs. Plan: Pt to be seen 3-5 per week for therapy including Role of occupational therapy/rehabilitation,Transfers, Assistive device/technique, Adaptive equipment training, ADL, Positioning, Safety, Precautions/Protocol, Functional Mobility, Home Management, Balance, Recommendations and Discharge planning; splinting? Eval Date: 02/19/2014 Total time spent with patient: 44 minutes Total timed interventions: 0 minutes Pager: [phone] JACKIE MONTILLA OT 02/19/2014 Occupational Therapy Rehabilitation Department * Plan of Care - Harshad Aguirre RN - 02/19/2014 6:22 AM EDT Problem: Pain, Acute (Adult, Obstetrics) Goal: Acceptable Pain Control/Comfort Level Patient will demonstrate the desired outcomes. Outcome: Therapy, goal partially met Patient woke up in 10/10 neck pain overnight, Tylenol 1gm given with 6mg Dilaudid, pain decreased to 8/10 on reassessment. HARSHAD AGUIRRE RN * OR Attestation - Jason Radford MD - 02/18/2014 7:43 PM EDT Attestation: Case Date: 02/18/2014 I was present and I participated during the entire procedure (does not need to include opening and closing). JASON RADFORD MD 02/18/2014 * Brief Op Note - Jason Radford MD - 02/18/2014 7:42 PM EDT Brief Operative Note Patient Name: Jong Oliva : [id number] MR#: [id number] Case Date: 02/18/2014 Surgeon: Surgeon(s) and Role: * Jason Radford MD - Primary * Ivy Avalos MD - Resident-Surgeon Celso Preoperative diagnosis: HERNIATED DISC Postoperative diagnosis: HERNIATED DISC Procedure(s): DISCECTOMY, ANT, CERVICAL , ONE LVL EA. ADD'L SPACE, CX ANT. CX. FUSION INCLUD. MIN. DISCECTOMY; BELOW C2 @ANT. FUSION, INCLUDE. MIN. DISCECTOMY; EA. ADD'L LVL ALLOGRAFT FOR SPINE SURGERY ONLY; STRUCTUAL @ANT. SPINAL INSTRUMENTATION, 2-3 VERTEBRA, SEGMENTED MODIFIER GLOBUS PROVIDENCE MODIFIER, GLOBUS FORGE Anesthesia: GET Fluids: 1700cc crystalloid Estimated Blood Loss: 100cc Drains: CARLOS * Care Management - Drake Kathleen RN - 02/18/2014 3:43 PM EDT Office of Care Management She Kathleen RN-CRC Pager: [phone] Clinical Observation Assistant (CRC) Initial Note/DC Planning: continuing care needs to be re-assessed closer to DC Reviewed record and discussed pt withMD team and at interdisciplinary discharge rounds w CRC's, E COMMERCE DEVELOPER, charge histotechnologist. Did not interview pt. Patient in OR at this time for ACDF. Reason for admission: 58 y.o. 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 Functional status current: May need PT/OT evaluations. Immediate support/living environment: Patient is independent at home. Patient has very supportive children. Advance Directives: None on file. Insurance/prescription coverage/usual pharmacy: Medicare [place]/ [place] Medicaid Anticipated needs at DC Patient may need rehab after OR. Will reevaluate after OR procedure. P: CRC is available to assist with any identified continuing care needs until discharge. * Miscellaneous - Provider, Scanning - 02/18/2014 1:57 PM EDT * Miscellaneous - Provider, Scanning - 02/18/2014 1:57 PM EDT * Plan of Care - Harshad Aguirre RN - 02/18/2014 5:23 AM EDT Problem: Fall/Trauma/Injury Risk (Adult, Obstetrics) Goal: Absence of Trauma/Injury/Falls Patient will demonstrate the desired outcomes. Outcome: Absent and monitoring Patient has moderate weakness on right side. Needs two assist to bathroom. Uses walker, drags rightfoot when walking. HARSHAD AGUIRRE RN * Consult Note - Calvin Fernandes - 02/17/2014 4:49 PM EDT [facility] [place] [facility] [place] New Patient Consult Date of Consultation: 02/17/2014 Patient: Jong Oliva ([id number]; 1955) Patient Location: [address] [place] [address] Admitting Physician: Jason Radford MD Referring Provider: Jason Radford Primary Care Provider: CALISTA PANIAGUA APRN ENT Attending:Dr. Clay Reason for Consultation: r/o vocal cord immobility History of Present Illness: Jong Oliva is a 58 y.o. Female who had ACDF approximately ten years ago. The neurosurgery serviceadmitted her to their service from their clinic today b/c of acute myelopathic changes noted on exam and evidence of disk disease on MRI w/ a plan for a repeat ACDF. ENT was consulted to rule out vocal cord immobility as part of pre-operative planning to determine the laterality of the ACDF approach. Problem list: There is no problem list on file for this patient. Past Medical History: No past medical history on file. Past Surgical History: No past surgical history on file. Medications: No current facility-administered medications on file prior to encounter. Current Outpatient Prescriptions on File Prior to Encounter Medication Sig Dispense Refill ??? celecoxib (CELEBREX) 400 mg capsule Take 400 mg by mouth 2 times daily. ??? atorvastatin (LIPITOR) 20 mg tablet Take 20 mg by mouth daily. ??? atenolol (TENORMIN) 50 mg tablet Take 50 mg by mouth daily. ??? ranitidine (ZANTAC) 300 mg tablet Take 300 mg by mouth nightly. ??? NIFEdipine (ADALAT CC) 30 mg 24 hr tablet Take 30 mg by mouth daily. ??? [DISCONTINUED] piroxicam (FELDENE) 20 mg capsule 20mg, PO, QD ??? [DISCONTINUED] cyclobenzaprine (FLEXERIL) 10 mg tablet 10mg, PO, PRN, qd Allergies: Review of patient's allergies indicates no known allergies. Social History: Lives in [facility] [id number] History Substance Use Topics ??? Smoking status: Never Smoker ??? Smokeless tobacco: Never Used ??? Alcohol Use: Not on file Family History: No family history on file. Physical Examination: Vitals: Temp: [36.5 ??C (97.7 ??F)-36.9 ??C (98.4 ??F)] Heart Rate: [65-70] Resp: [20] BP: (129-137)/(71-80) SpO2: [98 %] Normal Abnormal/Notable findings General Age-appropriate behavior, no acute distress. Interactive and cooperative. Face Symmetric without dysmorphic features. Skin Dry and intact without rash, lesion, or birthmark. Eyes Pupils are equal, round, and reactive to light. Extraocular movement is full and intact. Periocular structures and conjunctiva healthy without lesions. Ears Auricles symmetric bilaterally without lesions. External auditory canals without cerumen impaction or drainage. Nose Patent anteriorly; healthy pink mucosa without lesions. No purulent drainage, no significant inferior turbinate hypertrophy. Septum without significant deviation. Oral cavity Lips and gingiva pink, moist, without lesions. Gums/dentition healthy. Tongue and floorof mouth soft without lesions or masses. Hard palate without lesions. Oral pharynx Soft palate without lesions; uvula intact without evidence of submucus cleft palate. Oropharynx symmetric. Neck Soft, supple, normal range of motion. Trachea midline without deviation. Lymphatic No abnormal cervical lymphadenopathy. Lung Clear to auscultation bilaterally, symmetric breath sounds, without wheezes. Breathing comfortably without stridor or grunting, flaring or retractions. Heart Regular rate and rhythm without murmur. Abdomen Soft, non-tender, non-distended, normal bowel sounds. Extremities Warm, well-perfused, mobile, normal strength. No cyanosis or edema. Neurologic/ Psych Cranial nerves II-XII grossly intact and symmetric. Normal speech and voice. Normal mood and affect. Procedures: Procedure: Flexible Laryngoscopy Indications: Evaluation for mucosal lesion of the upper airway Procedure and findings: The nasal mucosae are topicalized with pontacaine/afrin anesthesia. The flexible endoscope is passed through the nasal cavities and evaluation of the nasopharynx, oropharynx and larynx is performed. All of the visualized mucosae are normal except for the following: Turbinate hypertrophy bilaterally. Vocal cord mobility The vocal cords are mobile bilaterally. They abduct w/ sniffing and adduct with phonation. No evidence of vocal cord immobility Impression: Normal Vocal cord mobility in both vocal folds. No evidence of recurrent laryngeal nerve injury based on flexible laryngoscopic exam. * Initial Assessments - Theodore Bowman, PT - 02/17/2014 3:26 PM EDT Physical Therapy Neuro Evaluation Patient profile: Pt is a 58 y.o female adm 02/17/2014 by Jason Neal MD for myelopathy. PT consult received. Chart reviewed. PMH: Social History: Patient lives alone in [place], [place]. Ramp into house Baseline Mobility: has been ambulating with a cane for approx 10 wekks and a FWW this past week. Frequent falls. Pt reports she falls backwards sometime and forwards other times. She also feels her legs buckle from under her Equipment at home: has FWW, cane. W/C accessible home Precautions/Special Considerations: At risk to fall. As per orders activity as tolerated Staff Communication/Mobility Recommendations: mobilize with 1-2 asist, FWW and gait belt. AT RISK TO FALL S: from neck neck down it feels numb and tingly O: Pt seen for initial evaluation. Pt received sitting in CC eating lunch. Has been up to bathroom with assist of nsg. Vitals: Last value Range last 8 hrs Temperature Temp: 36.5 ??C (97.7 ??F) Temp: [36.5 ??C (97.7 ??F)-36.9 ??C (98.4 ??F)] Heart Rate Heart Rate: 70 Heart Rate: [65-70] Blood Pressure BP: 129/71 mmHg BP: (129-137)/(71-80) Respiratory Rate Resp: 20 Resp: [20] SpO2 SpO2: 98 % SpO2: [98 %] Communication: WNL Mental Status/Behavior: Oriented x 3 Pain: no neck pain but has some low back pain Sensation: numbness and tingling neck down right> left Vision/Perception: N/E Skin/Soft Tissue: WNL ROM: WNL Strength: Right L/E: ADF 0/5 L L/E: 4-5 throughout APF 1/5 Knee extension 3+/5 Flexion 3+/5 Right U/E : 0/5 finger/wrist extension L U/E 5/5 biceps/deltoid Biceps, dletoid 5/5 Neuromuscular: right hand (with clawing of fingers), unable to extend fingers Bed Mobility: N/E. Pt received in CC Balance: Sitting balance: good Standing balance: with FWW and 1 assist Dynamic/gait balance: decreased but not formally tested today Transfers: sit><stand with CG assist, using U/E s W/C Mobility: N/E Gait: amb with FWW, step-to gait. Right knee locked in hyperextension in stance, trendelenberg on the right) Informed Consent: The pt understands and agrees to the PT treatment plan and goals. Education: The pt been educated on Transfers, Assistive device/technique, Safety , Precautions/protocol, Gait , Role of therapy and Discharge planning and verbalizes understanding Assessment: 58 yo female with myelopathy admitted for likely work up and possible surgery (as per pt) Pt will benefit from ongoing therapeutic interventions as outlined below to achieve the following goals Plan: Will await new post op orders. Pt will likely need rehab to increase her mobility, independence andsafety prior to d/c to home. Equipment needs: to be determined Discharge Recommendations: Patient will require 24/7 supervision and assistance. Patient would benefit and tolerate continued daily intensive therapy interventions to maximize functional independence. Occupational Therapy consult Total time spent with patient: 34 minutes Total timed interventions: 0 minutes eval Pager: [phone] THEODORE BOWMAN, PT 02/17/2014 Physical Therapy Rehabilitation Department documented in this encounter Plan of Treatment Pending Results Name Type Priority Associated Diagnoses Date /Time XR Fluoro OR c-arm storage only Imaging Routine 02/18/2014 8:26 PM EDT Scheduled Orders Name Type Priority Associated Diagnoses Orde r Schedule XR Fluoro OR c-arm storage only Imaging Routine Once PRN (for Ra diant use) for 1 Occurrences starting 02/18/2014 until 02/18/2014 documented as of this encounter Procedures Procedure Name Priority Date/Time Associated Diagnosis Comments IMPLANTABLE DEVICES SCAN 02/21/2014 9:10 AM EDT HEMOGRAM Routine 02/20/2014 4:21 AM EDT DIFFERENTIAL, AUTOMATED Routine 02/20/2014 4:21 AM EDT CBC (WITH DIFF) Routine 02/20/2014 4:21 AM EDT BASIC METABOLIC PANEL Routine 02/20/2014 4:21 AM EDT HEMOGRAM Routine 02/19/2014 3:20 AM EDT DIFFERENTIAL, AUTOMATED Routine 02/19/2014 3:20 AM EDT CBC (WITH DIFF) Routine 02/19/2014 3:20 AM EDT BASIC METABOLIC PANEL Routine 02/19/2014 3:20 AM EDT XR CERVICAL SPINE 2 OR 3 VIEWS Routine 02/18/2014 10:36 PM EDT SURGICAL PATHOLOGY REPORT Routine 02/18/2014 4:13 PM EDT SPECIMEN TO PATHOLOGY Routine 02/18/2014 4:13 PM EDT SPECIMEN TO PATHOLOGY Routine 02/18/2014 4:13 PM EDT BLOOD GAS ARTERIAL POC Routine 02/18/2014 3:08 PM EDT ABO/RH TYPING STAT 02/18/2014 3:01 PM EDT APTT STAT 02/18/2014 3:01 PM EDT PROTHROMBIN TIME STAT 02/18/2014 3:01 PM EDT ANTIBODY SCREEN STAT 02/18/2014 3:01 PM EDT TYPE AND SCREEN ([facility]) STAT 02/18/2014 3:01 PM EDT MODIFIER, GLOBUS FORGE 02/18/2014 2:10 PM EDT HERNIATED DISC MODIFIER GLOBUS PROVIDENCE 02/18/2014 2:10 PM EDT HERNIATED DISC ANT. SPINAL INSTRUMENTATION, 2-3 VERTEBRA, SEGMENTED (WRVU 11.94) 02/18/2014 2:10 PM EDT HERNIATED DISC ALLOGRAFT FOR SPINE SURGERY ONLY; STRUCTUAL (WRVU 1.81) 02/18/2014 2:10 PM EDT HERNIATED DISC ANT. FUSION, INCLUDE. MIN. DISCECTOMY; EA. ADD'L LVL (WRVU 5.52) 02/18/2014 2:10 PM EDT HERNIATED DISC ANT. CX. FUSION INCLUD. MIN. DISCECTOMY; BELOW C2 (WRVU 17.69) 02/18/2014 2:10 PM EDT HERNIATED DISC EA. ADD'L SPACE, CX (WRVU 4.04) 02/18/2014 2:10 PM EDT HERNIATED DISC DISCECTOMY, ANT, CERVICAL , ONE LVL (WRVU 19.6) 02/18/2014 2:10 PM EDT HERNIATED DISC HEMOGRAM Routine 02/18/2014 4:36 AM EDT DIFFERENTIAL, AUTOMATED Routine 02/18/2014 4:36 AM EDT CBC (WITH DIFF) Routine 02/18/2014 4:36 AM EDT BASIC METABOLIC PANEL Routine 02/18/2014 4:36 AM EDT MRI LUMBAR SPINE WITHOUT CONTRAST Routine 02/17/2014 10:00 PM EDT documented in this encounter Results * XR [...] Film and interpretation reviewed by the attending Jason Radford MD IMG DX ORDERABLES * SCAN DOC: IMPLANTABLE DEVICES (02/21/2014 9:10 AM EDT) Narrative 02/21/2014 9:10 AM EDT Procedure Note Provider, Scanning - 02/21/2014 9:10 AM EDT Scanning Provider MEDIA MGR SCAN EXT O RDR/RSLT * (ABNORMAL) Differential, Automated (02/20/2014 4:21 AM EDT) Neutrophil % 70.9 34.0 - 71.0 % CERNER MILLENNIUM Neutrophil Absolute 6.48(H) 1.50 - 6.30 x10(3)/mc L CERNER MILLENNIUM Lymph % 19.2 19.0 - 53.0 % CERNER MILLENNIUM Lymphocytes Abs 1.8 1.0 - 3.6 x10(3)/mc L CERNER MILLENNIUM Monocyte % 7.3 4.0 - 13.0 % CERNER MILLENNIUM Monocyte Abs 0.7 0.2 - 1.0 x10(3)/mc L CERNER MILLENNIUM Eos % 2.3 0.0 - 7.0 % CERNER MILLENNIUM Eosinophils Abs 0.2 0.0 - 0.5 x10(3)/mc L CERNER MILLENNIUM Basophil % 0.2 0.0 - 2.0 % CERNER MILLENNIUM Baso Absolute 0.0 0.0 - 0.2 x10(3)/mc L CERNER MILLENNIUM Immature Gran % 0.10 0.00 - 0.66 % CERNER MILLENNIUM Comment: Immature granulocytes(IG's)percentage and absolute count will include metamyelocytes, myelocytes, and promyelocytes. Blood smears from CBCs yielding IG's will be scanned manually for concordance. If this scan disagrees with the automated IG or if promyelocytes are noted, a manual differential will be performed. Immature Gran Absolute 0.01 0.00 - 0.05 x10(3)/mc L CERNER MILLENNIUM Blood specimen (specimen) 02/20/2014 4:21 AM EDT 02/20/2014 4:31 AM EDT Narrative Resulting Agency Comment Spec In Lab Jason Radford MD HEMATOLOGY ORDERABLE S CERNER MILLENNIUM * Hemogram (02/20/2014 4:21 AM EDT) White Blood Cell 9.2 4.0 - 10.0 x10(3)/mcL CERNER MILLENNIUM Red Blood Cell 4.08 3.93 - 5.22 x10(6)/mcL CERNER MILLENNIUM Hemoglobin 12.6 11.2 - 15.7 gm/dL CERNER MILLENNIUM Hematocrit 37.4 34.0 - 45.0 % CERNER MILLENNIUM Mean Cell Volume 91.7 79.0 - 94.0 fL CERNER MILLENNIUM Mean Cell Hemoglobin 30.9 26.6 - 32.2 pg CERNER MILLENNIUM Mean Cell Hemoglobin Concentration 33.7 32.0 - 36.5 gm/dL CERNER MILLENNIUM Platelet 172 145 - 370 x10(3)/mcL CERNER MILLENNIUM RDW Standard Deviation 44.2 35.0 - 46.0 fL CERNER MILLENNIUM RDW coefficient of variation 13.2 10.9 - 14.4 % CERNER MILLENNIUM Mean Platelet Volume 9.4 9.0 - 12.0 fL CERNER MILLENNIUM Blood specimen (specimen) 02/20/2014 4:21 AM EDT 02/20/2014 4:31 AM EDT Narrative Resulting Agency Comment Spec In Lab Jason Radford MD HEMATOLOGY ORDERABLE S CERNER MILLENNIUM * Basic Metabolic Panel (non-fasting) (02/20/2014 4:21 AM EDT) [facility] Glucose 141 60 - 199 mg/dL CERNER MILLENNIUM Comment:Diabetes: >=200 mg/d L plus symptoms Blood Urea Nitrogen 12 8 - 18 mg/dL CERNER MILLENNIUM Creatinine 0.71 0.70 - 1.20 mg/dL CERNER MILLENNIUM Comment: Please note that the pediatric reference intervals supplied above were not validated at [facility] Results from pediatric patients should be interpreted in conjunction to the patient's age, height and muscle mass. Sodium 137 135 - 145 mmol/L CERNER MILLENNIUM Potassium 5.0 3.5 - 5.0 mmol/L CERNER MILLENNIUM Comment: Please note: ??Patients with WBC >100,000 may have falsely elevated Potassium levels. ??For accurate Potassium quantification in these patients send serum separator tube (gold top) for subsequent determinations. ??Contact the Clinical Chemistry Laboratory if there are any questions. Chloride 101 98 - 107 mmol/L CERNER MILLENNIUM Carbon Dioxide 28 22 - 31 mmol/L CERNER MILLENNIUM Anion Gap 8 5 - 15 mmol/L CERNER MILLENNIUM Calcium 9.2 8.5 - 10.5 mg/dL CERNER MILLENNIUM Est Glomerular Filtration Rate >60 >=60 CERNER MILLENNIUM Comment: This estimated GFR (eGFR) value was calculated using the MDRD equation which has been validated on patients between the ages of 18 and 70. The MDRD should not be used to assess kidney function in patients < 18 years of age or in patients with extremes of body mass, or in patients with acute kidney failure. This value should be multiplied by 1.2 for patients. For further information please copy and paste the following links into your internet browser. [email or web address]/DHnkdep [email or web address] Blood specimen (specimen) 02/20/2014 4:21 AM EDT 02/20/2014 4:31 AM EDT Narrative Resulting Agency Comment Spec In Lab Jason Radford MD CHEMISTRY ORDERABLES CERNER MILLENNIUM * (ABNORMAL) Differential, Automated (02/19/2014 3:20 AM EDT) Neutrophil % 88.1(H) 34.0 - 71.0 % CERNER MILLENNIUM Neutrophil Absolute 9.61(H) 1.50 - 6.30 x10(3)/mc L CERNER MILLENNIUM Lymph % 8.4(L) 19.0 - 53.0 % CERNER MILLENNIUM Lymphocytes Abs 0.9(L) 1.0 - 3.6 x10(3)/mc L CERNER MILLENNIUM Monocyte % 3.4(L) 4.0 - 13.0 % CERNER MILLENNIUM Monocyte Abs 0.4 0.2 - 1.0 x10(3)/mc L CERNER MILLENNIUM Eos % 0.0 0.0 - 7.0 % CERNER MILLENNIUM Eosinophils Abs 0.0 0.0 - 0.5 x10(3)/mc L CERNER MILLENNIUM Basophil % 0.0 0.0 - 2.0 % CERNER MILLENNIUM Baso Absolute 0.0 0.0 - 0.2 x10(3)/mc L CERNER MILLENNIUM Immature Gran % 0.10 0.00 - 0.66 % CERNER MILLENNIUM Comment: Immature granulocytes(IG's)percentage and absolute count will include metamyelocytes, myelocytes, and promyelocytes. Blood smears from CBCs yielding IG's will be scanned manually for concordance. If this scan disagrees with the automated IG or if promyelocytes are noted, a manual differential will be performed. Immature Gran Absolute 0.01 0.00 - 0.05 x10(3)/mc L CERNER MILLENNIUM Blood specimen (specimen) 02/19/2014 3:20 AM EDT 02/19/2014 3:32 AM EDT Narrative Resulting Agency Comment Spec In Lab Jason Radford MD HEMATOLOGY ORDERABLE S CERNER MILLENNIUM * (ABNORMAL) Hemogram (02/19/2014 3:20 AM EDT) White Blood Cell 10.9(H) 4.0 - 10.0 x10(3)/mc L CERNER MILLENNIUM Red Blood Cell 4.12 3.93 - 5.22 x10(6)/mc L CERNER MILLENNIUM Hemoglobin 12.7 11.2 - 15.7 gm/dL CERNER MILLENNIUM Hematocrit 37.4 34.0 - 45.0 % CERNER MILLENNIUM Mean Cell Volume 90.8 79.0 - 94.0 fL CERNER MILLENNIUM Mean Cell Hemoglobin 30.8 26.6 - 32.2 pg CERNER MILLENNIUM Mean Cell Hemoglobin Concentration 34.0 32.0 - 36.5 gm/dL CERNER MILLENNIUM Platelet 177 145 - 370 x10(3)/mc L CERNER MILLENNIUM RDW Standard Deviation 42.7 35.0 - 46.0 fL CERNER MILLENNIUM RDW coefficient of variation 12.8 10.9 - 14.4 % CERNER MILLENNIUM Mean Platelet Volume 9.8 9.0 - 12.0 fL CERNER MILLENNIUM Blood specimen (specimen) 02/19/2014 3:20 AM EDT 02/19/2014 3:32 AM EDT Narrative Resulting Agency Comment Spec In Lab Jason Radford MD HEMATOLOGY ORDERABLE S CERNER MILLENNIUM * (ABNORMAL) Basic Metabolic Panel (non-fasting) (02/19/2014 3:20 AM EDT) Glucose 198 60 - 199 mg/dL CERNER MILLENNIUM Comment:Diabetes: >=200 mg/d L plus symptoms Blood Urea Nitrogen 12 8 - 18 mg/dL CERNER MILLENNIUM Creatinine 0.88 0.70 - 1.20 mg/dL CERNER MILLENNIUM Comment: Please note that the pediatric reference intervals supplied above were not validated at [facility]. Results from pediatric patients should be interpreted in conjunction to the patient's age, height and muscle mass. Sodium 134(L) 135 - 145 mmol/L CERNER MILLENNIUM Potassium 5.0 3.5 - 5.0 mmol/L CERNER MILLENNIUM Comment: Please note: ??Patients with WBC >100,000 may have falsely elevated Potassium levels. ??For accurate Potassium quantification in these patients send serum separator tube (gold top) for subsequent determinations. ??Contact the Clinical Chemistry Laboratory if there are any questions. Chloride 99 98 - 107 mmol/L CERNER MILLENNIUM Carbon Dioxide 22 22 - 31 mmol/L CERNER MILLENNIUM Anion Gap 13 5 - 15 mmol/L CERNER MILLENNIUM Calcium 9.1 8.5 - 10.5 mg/dL CERNER MILLENNIUM Est Glomerular Filtration Rate >60 >=60 CERNER MILLENNIUM Comment: This estimated GFR (eGFR) value was calculated using the MDRD equation which has been validated on patients between the ages of 18 and 70. The MDRD should not be used to assess kidney function in patients < 18 years of age or in patients with extremes of body mass, or in patients with acute kidney failure. This value should be multiplied by 1.2 for patients. For further information please copy and paste the following links into your internet browser. [email or web address]/DHnkdep [email or web address] Blood specimen (specimen) 02/19/2014 3:20 AM EDT 02/19/2014 3:32 AM EDT Narrative Resulting Agency Comment Spec In Lab Jason Radford MD CHEMISTRY ORDERABLES CARLEEN GUERRA * XR Cervical Spine 2 or 3 views (02/18/2014 10:36 PM EDT) Anatomical Region Laterality Modality C-spine N/A Radiographic Meagan ging 02/18/2014 10:3 6 PM EDT Narrative 02/19/2014 8:29 AM EDT Examination Cervical Spine 2 or 3 Views Clinical History s/p C4-5, C6-7 ACDF Comparison None Technique AP, lateral and swimmer's of cervical spine. Findings There has been an anterior cervical discectomy and fusion from C4-C7. ??The anterior plate and screws and bone grafts are well positioned. ??There is a surgical drain present. Impression No complications are evident. Procedure Note Toribio Hayden MD - 02/19/2014 Examination Cervical Spine 2 or 3 Views Clinical History s/p C4-5, C6-7 ACDF Comparison None Technique AP, lateral and swimmer's of cervical spine. Findings There has been an anterior cervical discectomy and fusion from C4-C7. The anterior plate and screws and bone grafts are well positioned. There is a surgical drain present. Impression No complications are evident. Jason Radford MD IMG DX ORDERABLES * Surgical Pathology Report (02/18/2014 4:13 PM EDT) Final Diagnosis ? [facility] ? Provider: ?? JASON RADFORD ? Pt. Name: ?? JONG OLIVA ? Acc #: ?[id number] ?Pt. ? Col Date: ?? 02/18/2014 ? /Sex: ?1955,(58 years),Female ? Rec Date: ?? 02/18/2014 ? LOC: ?3[facility] ? SURGICAL PATHOLOGY ? ---Pathologic Diagnosis--- ? A - Intervertebral disc, C 6-7 ?Gross surgical pathology examination. ? B - Intervertebral disc, C 4-5 ?Gross surgical pathology examination. ? CR-0 ? 02/18/14 ? SNS ? 02/19/14 Verified by: ? Black DO, Cecilia C. ? Pathologist ? (Electronic Signature) ? The attending pathologist whose signature appears on this report has ? reviewed all diagnostic slides and has edited the gross and/or ? microscopic portion of the report in rendering the final pathologic ? diagnosis. ? ---Gross Description--- ? A - Labeled/Fixative: C 6-7 disc, fresh. ? Quantity/Size: Multiple, 3 x 2 x 1 cm. ? Tissue Description: Dense, prajapati-white, tissue fragments. ? Sections/Processi ng: No sections are submitted. ? B - Labeled/Fixative: C 4-5 disc, fresh. ? Quantity/Size: Multiple, 1 x 1 x 1 cm. ? Tissue Description: Dense, prajapati-white, tissue fragments. ? Sections/Processi ng: No sections are submitted. ??sns ? ---Clinical Information--- ? Specimen Submitted: ? A - C 6-7 disk ? B - C 4-5 disk ? Clinical History: ? Herniated disc ? Clinical Diagnosis: ? Same 02/19/2014 11:49 AM EDT [facility] STRUCTURE OF INTERVERTEBRAL DISC / Unknown 02/18/2014 4:13 PM EDT 02/18/2014 4:13 PM EDT STRUCTURE OF INTERVERTEBRAL DISC / Unknown 02/18/2014 4:13 PM EDT 02/18/2014 4:13 PM EDT Jason Radford MD PATHOLOGY/CYTOLOGY O ROBERT Performing Organization Address [facility] Co de Phone [place] [address] * Specimen to Pathology (surgical or derm) (02/18/2014 4:13 PM EDT) AP Specimen 02/18/2014 4:13 PM EDT 02/18/2014 4:13 PM EDT Narrative CARLEEN MILLENNIUM - 02/18/2014 4:13 PM EDT Specimen requisition ordered. ??Separate Pathology report to follow Jason Radford MD PATHOLOGY/CYTOLOGY O ROBERT Performing Organization Address [facility] de Phone Number CARLEEN SAIDAELISEOIUM * Specimen to Pathology (surgical or derm) (02/18/2014 4:13 PM EDT) AP Specimen 02/18/2014 4:13 PM EDT 02/18/2014 4:13 PM EDT Narrative CARLEEN MILLENNIUM - 02/18/2014 4:13 PM EDT Specimen requisition ordered. ??Separate Pathology report to follow Jason Radford MD PATHOLOGY/CYTOLOGY O ROBERT Performing Organization Address [facility] de Phone Number CARLEEN MILLENNIUM * (ABNORMAL) BLOOD GAS 2 ARTERIAL (02/18/2014 3:08 PM EDT) pH, Arterial 7.40 CERNER MILLENNIUM PCO2, Arterial 36 mmHg CERNE R MILLENNIUM PO2, Arterial 442(H) mmHg CERNER MILLENNIUM Bicarbonate, Arterial 21.8 mmol/L CERNER MILLENNIUM Base Excess, Arterial -3.0 mmol/L CERNER MILLENNIUM Hgb Blood Gas 13.1 gm/dL CERNER MILLENNIUM Comment: Total Hemoglobin (in gm/dL) ?Based on [facility] Hematology ranges: ?Age ?Reference Range Less than 3 days ?14.5 to 22.5 3 days to 2 weeks ? 12.5 to 20.5 2 weeks to 1 month ?10.0 to 18.0 1 to 6 months ?9.4 to 14.0 6 months to 2 years ? 10.5 to 13.5 2 to 6 years ?11.5 to 13.5 6 to 12 years ? 11.5 to 15.5 12 to 18 years (female) 12.0 to 16.0 ? (male) ?? 13.0 to 16.0 > 18 years ? (female) 11.2 to 15.7 ? (male) ?? 13.7 to 17.5 Oxyhemoglobin, Arterial 98.9(H) % CERNER MILLENNIUM Carboxyhemoglob in, Arterial 0.6 % CERNER MILLENNIUM Comment: Nonsmokers: 0.5-1.5% COHB Smokers: Variable, but usually less than 10% Toxic: 20-30% COHB Lethal: Greater than 60% COHB Methemoglobin, Arterial 0.4 % CERNER MILLENNIUM Na Whole Blood 136 mmol/L CERNE R MILLENNIUM K Whole Blood 3.9 mmol/L CERNER MILLENNIUM Comment: Please note: Patients with WBC >100,000 may have falsely elevated Potassium levels. Contact the Clinical Chemistry Laboratory if there are any questions. ICa Whole Blood 1.21 mmol/L CERN ER MILLENNIUM Comment: Reference Ranges: ?? < 19 yrs: 1.22 - 1.37 mmol/L ? Adults: 1.15 - 1.33 mmol/L Note: ??Total bilirubin higher than 20 mg/dL may lead to falsely low ionized calcium. CL Whole Blood 107 mmol/L CERNE R MILLENNIUM Gluc Whole Bld 95 mg/dL CERNE R MILLENNIUM Comment:Diabetes: >=200 mg/d L plus symptoms. Blood specimen (specimen) 02/18/2014 3:08 PM EDT 02/18/2014 3:08 PM EDT Jason Radford MD POINT OF CARE TEST O RDERABLES Performing Organization Address [facility] Co de Phone Number [facility] * Antibody screen (02/18/2014 3:01 PM EDT) Ab Screen Interp Negative [facility] Expires at [id number] on: [id number] [facility] Blood specimen (specimen) 02/18/2014 3:01 PM EDT 02/18/2014 3:20 PM EDT Narrative Resulting Agency Comment Spec In Lab Jason Radford MD BLOOD BANK LAB ORDER PAULINE Performing Organization Address [facility] Phone Number [facility] * ABO/Rh Typing (02/18/2014 3:01 PM EDT) ABORH Type O Neg [facility] Blood specimen (specimen) 02/18/2014 3:01 PM EDT 02/18/2014 3:20 PM EDT Narrative Resulting Agency Comment Spec In Lab Jason Radford MD BLOOD BANK LAB ORDER PAULINE Performing Organization Address [facility] de Phone Number [facility] * APTT (02/18/2014 3:01 PM EDT) Partial Thromboplastin Time 27 25 - 35 sec [facility] Comment: Recommended therapeutic PTT range for full dose unfractionated heparin is 80-114 seconds. Blood specimen (specimen) 02/18/2014 3:01 PM EDT 02/18/2014 3:12 PM EDT Narrative Resulting Agency Comment Spec In Lab Jason Radford MD HEMATOLOGY ORDERABLE S Performing Organization Address [facility] Co de Phone Number [facility] * Prothrombin Time (02/18/2014 3:01 PM EDT) Prothrombin Time 13.3 12.0 - 15.0 sec CERNER MILLENNIUM Comment: [facility] Transfusion Committee Guidelines: INR less than 2.0, PTT less than OR equal to 43.5 seconds, or Fibrinogen greater than or equal to 100 mg/dl indicate adequate procoagulant activity for hemostasis in patients without underlying bleeding disorders. International Normalization Ratio 1.0 0.9 - 1.1 CERNER MILLENNIUM Blood specimen (specimen) 02/18/2014 3:01 PM EDT 02/18/2014 3:12 PM EDT Narrative Resulting Agency Comment Spec In Lab Jason Radford MD HEMATOLOGY ORDERABLE S CERNER MILLENNIUM * Differential, Automated (02/18/2014 4:36 AM EDT) Neutrophil % 47.4 34.0 - 71.0 % CERNER MILLENNIUM Neutrophil Absolute 2.21 1.50 - 6.30 x10(3)/mcL CERNER MILLENNIUM Lymph % 42.0 19.0 - 53.0 % CERNER MILLENNIUM Lymphocytes Abs 2.0 1.0 - 3.6 x10(3)/mcL CERNER MILLENNIUM Monocyte % 5.1 4.0 - 13.0 % CERNER MILLENNIUM Monocyte Abs 0.2 0.2 - 1.0 x10(3)/mcL CERNER MILLENNIUM Eos % 4.9 0.0 - 7.0 % CERNER MILLENNIUM Eosinophils Abs 0.2 0.0 - 0.5 x10(3)/mcL CERNER MILLENNIUM Basophil % 0.4 0.0 - 2.0 % CERNER MILLENNIUM Baso Absolute 0.0 0.0 - 0.2 x10(3)/mcL CERNER MILLENNIUM Immature Gran % 0.20 0.00 - 0.66 % CERNER MILLENNIUM Comment: Immature granulocytes(IG's)percentage and absolute count will include metamyelocytes, myelocytes, and promyelocytes. Blood smears from CBCs yielding IG's will be scanned manually for concordance. If this scan disagrees with the automated IG or if promyelocytes are noted, a manual differential will be performed. Immature Gran Absolute 0.01 0.00 - 0.05 x10(3)/mcL CERNER MILLENNIUM Blood specimen (specimen) 02/18/2014 4:36 AM EDT 02/18/2014 4:59 AM EDT Narrative Resulting Agency Comment Spec In Lab Jason Radford MD HEMATOLOGY ORDERABLE S Performing Organization Address [facility] de Phone Number CERYOLA TAYLORIUM * Hemogram (02/18/2014 4:36 AM EDT) White Blood Cell 4.7 4.0 - 10.0 x10(3)/mcL CERNER MILLENNIUM Red Blood Cell 4.28 3.93 - 5.22 x10(6)/mcL CERNER MILLENNIUM Hemoglobin 12.9 11.2 - 15.7 gm/dL CERNER MILLENNIUM Hematocrit 38.0 34.0 - 45.0 % CERNER MILLENNIUM Mean Cell Volume 88.8 79.0 - 94.0 fL CERNER MILLENNIUM Mean Cell Hemoglobin 30.1 26.6 - 32.2 pg CERNER MILLENNIUM Mean Cell Hemoglobin Concentration 33.9 32.0 - 36.5 gm/dL CERNER MILLENNIUM Platelet 189 145 - 370 x10(3)/mcL CERNER MILLENNIUM RDW Standard Deviation 40.5 35.0 - 46.0 fL CERNER MILLENNIUM RDW coefficient of variation 12.7 10.9 - 14.4 % CERNER MILLENNIUM Mean Platelet Volume 9.5 9.0 - 12.0 fL CERNER MILLENNIUM Blood specimen (specimen) 02/18/2014 4:36 AM EDT 02/18/2014 4:59 AM EDT Narrative Resulting Agency Comment Spec In Lab Jason Radford MD HEMATOLOGY ORDERABLE S Performing Organization Address [facility] de Phone Number CERYOLA TAYLORIUM * (ABNORMAL) Basic Metabolic Panel (non-fasting) (02/18/2014 4:36 AM EDT) Glucose 126 60 - 199 mg/dL CERNER MILLENNIUM Comment:Diabetes: >=200 mg/d L plus symptoms Blood Urea Nitrogen 19(H) 8 - 18 mg/dL CERNER MILLENNIUM Creatinine 0.88 0.70 - 1.20 mg/dL CERNER MILLENNIUM Comment: Please note that the pediatric reference intervals supplied above were not validated at [facility]. Results from pediatric patients should be interpreted in conjunction to the patient's age, height and muscle mass. Sodium 135 135 - 145 mmol/L CERNER MILLENNIUM Potassium 4.6 3.5 - 5.0 mmol/L CERNER MILLENNIUM Comment: Please note: ??Patients with WBC >100,000 may have falsely elevated Potassium levels. ??For accurate Potassium quantification in these patients send serum separator tube (gold top) for subsequent determinations. ??Contact the Clinical Chemistry Laboratory if there are any questions. Chloride 103 98 - 107 mmol/L CERNER MILLENNIUM Carbon Dioxide 23 22 - 31 mmol/L CERNER MILLENNIUM Anion Gap 9 5 - 15 mmol/L CERNER MILLENNIUM Calcium 9.2 8.5 - 10.5 mg/dL CERNER MILLENNIUM Est Glomerular Filtration Rate >60 >=60 CERNER MILLENNIUM Comment: This estimated GFR (eGFR) value was calculated using the MDRD equation which has been validated on patients between the ages of 18 and 70. The MDRD should not be used to assess kidney function in patients < 18 years of age or in patients with extremes of body mass, or in patients with acute kidney failure. This value should be multiplied by 1.2 for patients. For further information please copy and paste the following links into your internet browser. [email or web address] [email or web address] Blood specimen (specimen) 02/18/2014 4:36 AM EDT 02/18/2014 4:59 AM EDT Narrative Resulting Agency Comment Spec In Lab Jason Radford MD CHEMISTRY ORDERABLES CARLEEN TAYLORIUM * MRI lumbar spine without contrast (02/17/2014 10:00 PM EDT) Anatomical Region Laterality Modality L-spine Magnetic Resonan ce 02/17/2014 10:0 0 PM EDT Narrative 02/18/2014 8:39 AM EDT Examination MR Lumbar Spine WO Clinical History ? spinal stenosis Technique MRI of the lumbar spine without contrast. ??Routine protocol. Comparison NONE Findings Alignment is near normal. ??Mild disc space narrowing at L2-L3 and L3-L4 as well as T12-L1. Otherwise the disc space heights are maintained. ??No aggressive marrow lesions. ??The visualized retroperitoneal structures are unremarkable. Normal-appearing conus terminates at the L1/L2 level. The following disc levels are outlined below: T12-L1 is a disc bulge with minimal canal and neural foraminal narrowing. L1-L2 no canal or neural foraminal narrowing. L2-L3 disc bulge and facet arthropathy result in mild degrees of canal and neural foraminal narrowing. L3-L4 a disc bulge and facet arthropathy with mild canal and neural foraminal narrowing. At L4-L5 is a disc bulge with a small central disc protrusion that mildly narrows the spinal canal. ??Foraminal narrowing mild bilaterally. L5-S1 no significant canal or neural foraminal narrowing. Impression Mild degenerative changes as described above. Comment: The following findings are so common in people without low back pain that while we report their presence, they must be interpreted with caution and in the context of the clinical situation. (Reference-Harlank et al, Spine 2001) Findings: (prevalence in patients without low back pain), Disk degeneration (decreased T2 signal, height loss, bulge) (91%), Disk T2-signal loss (83%), Disk height loss (56%), Disk bulge (64%), Disk protrusion (32%), Annular fissure (38%). Procedure Note Don Villalba MD - 02/18/2014 Examination MR Lumbar Spine WO Clinical History ? spinal stenosis Technique MRI of the lumbar spine without contrast. Routine protocol. Comparison NONE Findings Alignment is near normal. Mild disc space narrowing at L2-L3 and L3-L4 aswell as T12-L1. Otherwise the disc space heights are maintained. No aggressive marrow lesions. The visualized retroperitoneal structures areunremarkable. Normal-appearing conus terminates at the L1/L2 level. The following disc levels are outlined below: T12-L1 is a disc bulge with minimal canal and neural foraminal narrowing. L1-L2 no canal or neural foraminal narrowing. L2-L3 disc bulge and facet arthropathy result in mild degrees of canal and neural foraminal narrowing. L3-L4 a disc bulge and facet arthropathy with mild canal and neuralforaminal narrowing. At L4-L5 is a disc bulge with a small central disc protrusion that mildly narrows the spinal canal. Foraminal narrowing mild bilaterally. L5-S1 no significant canal or neural foraminal narrowing. Impression Mild degenerative changes as described above. Comment: The following findings are so common in people without low backpain that while we report their presence, they must be interpreted with cautionand in the context of the clinical situation. (Reference-Harlank et al, [id number]) Findings: (prevalence in patients without low back pain), Diskdegeneration (decreased T2 signal, height loss, bulge) (91%), Disk T2-signal loss(83%), Disk height loss (56%), Disk bulge (64%), Disk protrusion (32%), Annular fissure (38%). Jason Radford MD IMG MRI ORDERABLES documented in this encounter Visit Diagnoses Diagnosis Cervical myelopathy- Primary Cervical spondylosis with myelopathy Cervical myelopathy Cervical spondylosis with myelopathy Cervical myelopathy Cervical spondylosis with myelopathy documented in this encounter Administered Medications Inactive Administered Medications - up to 3 most recent administrations Medication Order MAR Action Action Date Dose Rate Site acetaminophen (TYLENOL) tablet 650 mg 650 mg, Oral, EVERY 4 HOURS PRN, Starting on Mon02/17/14 at 1202, Until Elvi 02/20/14 at 1150, Pain, mild pain, May repeat once in 30 minutes if desired effect not acheived, Routine Given 02/19/2014 10:01 PM EDT 650 mg Given 02/19/2014 4:53 AM EDT 650 mg Given 02/18/2014 8:19 AM EDT 650 mg atenolol (TENORMIN) tablet 50 mg 50 mg, Oral, DAILY, First dose on Mon02/17/14 at 1400, Until Discontinued, Routine Given 02/20/2014 8:49 AM EDT 50 mg Given 02/19/2014 9:33 AM EDT 50 mg Given 02/18/2014 8:15 AM EDT 50 mg atorvastatin (LIPITOR) tablet 20 mg 20 mg, Oral, EVERY EVENING, First dose on Mon02/17/14 at 1700, Until Discontinued, Routine Given 02/19/2014 6:04 PM EDT 20 mg Given 02/17/2014 4:04 PM EDT 20 mg bisacodyl (DULCOLAX) suppository 10 mg 10 mg, Rectal, DAILY PRN, Starting on Mon02/17/14 at 1202, Until Mon02/20/14 at 1150, Constipation, Administer if needed per patient's routine or if no bowel movement within 48 hours, Routine Given 02/19/2014 8:02 PM EDT 10 mg ceFAZolin (ANCEF) 1g in dextrose 5% 50mL 1,000 mg (1 g), Intravenous, EVERY 8 HOURS, First dose on Mon02/18/14 at 2045, Until Discontinued, Administer over 30 Minutes, Indication for (Active or Suspected): Prophylaxis New Bag 02/20/2014 5:09 AM EDT 1,000 mg 100 mL/hr New Bag 02/19/2014 8:03 PM EDT 1,000 mg 100 mL/hr New Bag 02/19/2014 2:02 PM EDT 1,000 mg 100 mL/hr celecoxib (celeBREX) capsule 400 mg 400 mg, Oral, 2 TIMES DAILY, First dose on Mon02/17/14 at 1330, Until Discontinued, Routine Given 02/18/2014 8:17 AM EDT 400 mg Given 02/17/2014 8:31 PM EDT 400 mg Given 02/17/2014 1:55 PM EDT 400 mg esomeprazole (NEXIUM) capsule 40 mg 40 mg, Oral, DAILY, First dose on Mon02/17/14 at 1400, Until Discontinued, If unable to take PO, may give IV, Routine Given 02/20/2014 8:49 AM EDT 40 mg Given 02/19/2014 9:34 AM EDT 40 mg Given 02/18/2014 8:17 AM EDT 40 mg HYDROmorphone (DILAUDID) tablet 2-6 mg 2-6 mg, Oral, EVERY 4 HOURS PRN, Starting on Mon02/17/14 at 1202, Until Elvi 02/20/14 at 1150, Pain, Routine Given 02/20/2014 9:41 AM EDT 6 mg Given 02/20/2014 3:34 AM EDT 4 mg Given 02/19/2014 10:02 PM EDT 6 mg LORazepam (ATIVAN) injection 0.5 mg 0.5 mg, Intravenous, ONCE, 1 dose, On Mon02/17/14 at 1500, May repeat x 1 if needed, Routine Given 02/17/2014 8:32 PM EDT 0.5 mg NIFEdipine (ADALAT CC) CR tablet 30 mg 30 mg, Oral, DAILY, First dose on Mon02/17/14 at 1300, Until Discontinued, Routine Given 02/20/2014 8:49 AM EDT 30 mg Given 02/19/2014 9:34 AM EDT 30 mg Given 02/18/2014 8:17 AM EDT 30 mg senna-docusate (PERICOLACE) 8.6-50 mg per tablet 1-4 tablet 1-4 tablet, Oral, 2 TIMES DAILY, First dose on Mon02/17/14 at 1230, Until Discontinued, Start with 1 tablet or liquid equivalent orally twice daily and titrate up to achieve: 1. One bowel movement at least every 48 hours, AND 2. Without straining, Routine Given 02/19/2014 8:02 PM EDT 2 tablets Given 02/19/2014 9:34 AM EDT 2 tablets Given 02/18/2014 8:18 AM EDT 2 tablets sodium chloride 0.9 % flush 5 mL 5 mL, Intravenous, 2 TIMES DAILY, First dose on Mon02/17/14 at 1230, Until Discontinued, Recovery (Recovery-Hospital Unit), Routine Given 02/20/2014 8:52 AM EDT 5 mLs Given 02/19/2014 9:35 AM EDT 5 mLs Given 02/18/2014 11:27 PM EDT 5 mLs sodium chloride 0.9% with potassium chloride 20 mEq infusion 80 mL/hr, Intravenous, CONTINUOUS, Starting on Mon02/17/14 at 1230, Until Mon02/19/14 at 0812 New Bag 02/18/2014 8:32 PM EDT 80 mL/hr 80 mL /hr New Bag 02/18/2014 5:16 AM EDT 80 mL/hr 80 mL/hr New Bag 02/17/2014 4:02 PM EDT 80 mL/hr 80 mL/hr documented in this encounter Active and Recently Administered Medications Times are shown in EDT. Scheduled Medication Order 02/18/2014 02/19/2014 02/20/2014 atenolol (TENORMIN) tablet 50 mg (CANCELED) 50 mg, Oral, DAILY, First dose on Mon02/17/14 at 1400, Until Discontinued, Routine 0815 (Given - Provider: Marta Soler RN)1339 (MAR Hold - Provider: Admin Adt - Reason: Transfer to a Procedural area)2023 (MAR Unhold - Provider: Viviana Dewitt RN) 0933 (Given - Provider: Elanie Bronw RN) 0849 (Given - Provider: Elaine Brown RN) atorvastatin (LIPITOR) tablet 20 mg (CANCELED) 20 mg, Oral, EVERY EVENING, First dose on Mon02/17/14 at 1700, Until Discontinued, Routine 1339 (MAR Hold - Provider: Admin Adt - Reason: Transfer to a Procedural area)1700 (Automatically Held - Provider: Admin Adt)2023 (NOV Unhold - Provider: Viviana Dewitt, RN) 180 (Given - Provider: Elaine Brown, RN) ceFAZolin (ANCEF) 1g in dextrose 5% 50mL (CANCELED) 1,000 mg (1 g), Intravenous, EVERY 8 HOURS, First dose on Mon02/18/14 at 2045, Until Discontinued, Administer over 30 Minutes, Indication for (Active or Suspected): Prophylaxis 2326 (New Bag - Provider: Harshad Aguirre RN - Comment: last dose at 1436 in OR) 0604 (New Bag - Provider: Harshad Aguirre RN - Comment: med not available)140 (New Bag - Provider: Elaine Brown RN)2002 (New Bag - Provider: Miguel Jimenez RN) 050 (New Bag - Provider: Miguel Jimenez RN) celecoxib (celeBREX) capsule 400 mg (CANCELED) 400 mg, Oral, 2 TIMES DAILY, First dose on Mon02/17/14 at 1330, Until Discontinued, Routine 0817 (Given - Provider: Marta Soler RN)1339 (MAR Hold - Provider: Admin Adt - Reason: Transfer to a Procedural area)2100 (Automatically Held - Provider: Admin Adt)230 ([facility] Unhold - Provider: Admin Adt) esomeprazole (NEXIUM) capsule 40 mg (CANCELED)(Linked Group 1) 40 mg, Oral, DAILY, First dose on Mon02/17/14 at 1400, Until Discontinued, If unable to take PO, may give IV, Routine 0817 (Given - Provider: Marta Soler RN)1339 (MAR Hold - Provider: Admin Adt - Reason: Transfer to a Procedural area)2022 ([facility] Unhold - Provider: Viviana Dewitt, NITHYA) 0934 (Given - Provider: Elaine Brown RN) 0849 (Given - Provider: Elaine Brown RN) NIFEdipine (ADALAT CC) CR tablet 30 mg (CANCELED) 30 mg, Oral, DAILY, First dose on Mon02/17/14 at 1300, Until Discontinued, Routine 0817 (Given - Provider: Marta Soler RN)1339 ([facility] Hold - Provider: Admin Adt - Reason: Transfer to a Procedural area)2023 (NOV Unhold - Provider: Viviana Dewitt, RN) 0934 (Given - Provider: Elaine Brown RN) 0849 (Given - Provider: Elaine Brown RN) senna-docusate (PERICOLACE) 8.6-50 mg per tablet 1-4 tablet 1-4 tablet, Oral, 2 TIMES DAILY, First dose on Mon02/17/14 at 1230, Until Discontinued, Start with 1 tablet or liquid equivalent orally twice daily and titrate up to achieve: 1. One bowel movement at least every 48 hours, AND 2. Without straining, Routine 0818 (Given - Provider: Marta Soler RN)1339 (NOV Hold - Provider: Admin Adt - Reason: Transfer to a Procedural area)2100 (Automatically Held - Provider: Admin Adt)230 (NOV Unhold - Provider: Admin Adt) 0934 (Given - Provider: Elaine Brown RN)2001 (Given - Provider: Miguel Jimenez RN) 0843 (Not Given - Provider: Elaine Brown RN - Reason: Patient/family refused) sodium chloride 0.9 % flush 5 mL (CANCELED) 5 mL, Intravenous, 2 TIMES DAILY, First dose on Mon02/17/14 at 1230, Until Discontinued, Recovery (Recovery-Hospital Unit), Routine 0900 (Not Given - Provider: Marta Soler RN - Reason: See comment - Comment: infusing.)2327 (Given - Provider: Harshad Aguirre RN) 0935 (Given - Provider: Elaine Brown RN)2099 (Not Given - Provider: Miguel Jimenez RN - Reason: See comment - Comment: ivf infusing) 0852 (Given - Provider: Elaine Brown RN) Continuous Medication Order 02/18/2014 02/19/2014 02/20/2014 sodium chloride 0.9% with potassium chloride 20 mEq infusion (CANCELED) 80 mL/hr, Intravenous, CONTINUOUS, Starting on Mon02/17/14 at 1230, Until Mon02/19/14 at 0812 0516 (New Bag - Provider: Harshad Aguirre RN)2031 (New Bag - Provider: Viviana Dewitt RN) PRN Medication Order 02/18/2014 02/19/2014 02/20/2014 acetaminophen (TYLENOL) tablet 650 mg(Linked Group 2) 650 mg, Oral, EVERY 4 HOURS PRN, Starting on Mon02/17/14 at 1202, Until Elvi 02/20/14 at 1150, Pain, mild pain, May repeat once in 30 minutes if desired effect not acheived, Routine 0819 (Given - Provider: Marta Soler RN)1339 (NOV Hold - Provider: Admin Adt - Reason: Transfer to a Procedural area)2022 ([facility] Unhold - Provider: Viviana Dewitt RN) 045 (Given - Provider: Harshad Aguirre, NITHYA)2200 (Given - Provider: Miguel Jimenez, NITHYA) bacitracin injection (CANCELED) ONCE PRN, Starting on Mon02/18/14 at 1539, Until Mon02/18/14 at 2209, Intra-Operative (Intra-Procedure), Routine 1539 (Given - Provider: Ivy Avalos - Comment: 18523 units per liter LR) bisacodyl (DULCOLAX) suppository 10 mg (CANCELED) 10 mg, Rectal, DAILY PRN, Starting on Mon02/17/14 at 1202, Until Mon02/20/14 at 1150, Constipation, Administer if needed per patient's routine or if no bowel movement within 48 hours, Routine 1339 ([facility] Hold - Provider: Admin Adt - Reason: Transfer to a Procedural area)2308 ([facility] Unhold - Provider: Admin Adt) 2001 (Given - Provider: Miguel Jimenez, NITHYA) gelatin adsorbable (GELFOAM) sponge (CANCELED) ONCE PRN, Starting on Mon02/18/14 at 1540, Until Mon02/18/14 at 2209, Intra-Operative (Intra-Procedure) 1540 (Given - Provider: Ivy Avalos - Comment: Soaked in 5000 units of thrombin, used PRN during procedure) HYDROmorphone (DILAUDID) tablet 2-6 mg 2-6 mg, Oral, EVERY 4 HOURS PRN, Starting on Mon02/17/14 at 1202, Until Elvi 02/20/14 at 1150, Pain, Routine 1339 ([facility] Hold - Provider: Admin Adt - Reason: Transfer to a Procedural area)2023 (MAR Unhold - Provider: Viviana Dewitt, NITHYA) 0454 (Given - Provider: Harshad Aguirre, RN - Comment: patient lost one dilaudid in bed)05 (Given - Provider: Harshad Aguirre RN)0933 (Given - Provider: Elaine Brown, RN)1402 (Given - Provider: Elaine Brown RN)1804 (Given - Provider: Elaine Brown RN)2202 (Given - Provider: Miguel Jimenez, NITHYA) 0334 (Given - Provider: Miguel Jimenez, NITHYA)0941 (Given - Provider: Elaine Brown RN) lidocaine-EPINEPHrine 1 %-1:200,000 injection (CANCELED) ONCE PRN, Starting on Mon02/18/14 at 1541, Until Mon02/18/14 at 2209, Intra-Operative (Intra-Procedure), Routine 1541 (Given - Provider: Ivy Avalos) thrombin (bovine) (THROMBIN-JMI) solution (CANCELED) ONCE PRN, Starting on Mon02/18/14 at 1541, Until Mon02/18/14 at 2209, Intra-Operative (Intra-Procedure) 1541 (Given - Provider: Ivy Avalos - Comment: Used to soak gelfoam. Appled PRN during procedure) Linked Groups Order Group 1: esomeprazole (NEXIUM) capsule 40 mg (CANCELED)Jump to med 40 mg, Oral, DAILY, First dose on Mon02/17/14 at 1400, Until Discontinued, If unable to take PO, may give IV, Routine Or esomeprazole (NEXIUM) injection 40 mg (CANCELED) 40 mg, Intravenous, DAILY, First dose on Mon02/17/14 at 1400, Until Discontinued, Routine Group 2: acetaminophen (TYLENOL) tablet 650 mgJump to med 650 mg, Oral, EVERY 4 HOURS PRN, Starting on Mon02/17/14 at 1202, Until Elvi 02/20/14 at 1150, Pain, mild pain, May repeat once in 30 minutes if desired effect not acheived, Routine Or acetaminophen (TYLENOL) suppository 650 mg (CANCELED) 650 mg, Rectal, EVERY 4 HOURS PRN, Starting on 02/17/14 at 1202, Until Elvi 02/20/14 at 1150, Pain, mild pain, May repeat once in 30 minutes if desired effects not achieved, Routine documented in this encounter Care Teams Bakery Manager Relationship Specialty Start Date End Date Calista Paniagua APRN PCP - General 01/28/14 09/25/14 documented as of this encounter
--- OUTSIDE RECORDS SUMMARY | 2024-08-20 16:06 | XMS_ITS | Encounter Summary ---
Author Organization [facility] Address [facility] [place] [id number] Care Team Providers Care Buyer Renter Name Role Phone Rafat Spence Primary Care Provider [phone] Encounter Details Date Type Department Care Team (Late st Contact Info) Description 10/20/2014 12:38 PM EST - 10/20/2014 11:59 PM EST Hospital Encounter XRay at [address] [place] [id number] Spondylosis Social History Tobacco Use Types Packs/Day Years [...] Date/Time Associated Diagnosis Comments XR CERVICAL SPINE 1 VIEW Routine 10/20/2014 12:57 PM EST Spondylosis documented in this encounter Results * XR cervical spine [...] documented in this encounter Visit Diagnoses Diagnosis Spondylosis Spondylosis of unspecified site without mention of myelopathy documented in this encounter Care Teams Buyer Renter Relationship Specialty Start Date End Date Rafat Spence PA [address] [place] [address] PCP - General 09/26/14 03/08/21 documented as of this encounter
--- OUTSIDE RECORDS SUMMARY | 2024-08-20 16:06 | XMS_ITS | Encounter Summary ---
Author Organization [facility] Address [address] [place] [address] Care Team Providers Care Calender Roll Press Operator Name Role Phone Unavailable Primary Care Provider Unavailabl e Encounter Details Date Type Department Care Team (Late st Contact Info) Description 11/03/2003 Results Only [facility] - Maple conversion [address] [place] [address] Lizzeth Bearden, [address] [place] [address] Social History Tobacco Use Types Packs/Day Years [...] Priority Date/Time Associated Diagnosis Comments CYTOPATHOLOGY Routine 11/03/2003 0:00 EST documented in this encounter Results * CYTOPATHOLOGY (11/03/2003 0:00 EST) Pathology Report: CYTOPATHOLOGY REPORT Reports generated via electronic interface contain original data; however they are lacking the format of the original report. Caution should be taken when reading/interpreti ng unformatted reports. Name: ? JONG PRIETO ? Accession #: ? [id number] : ? 1955 (Age: 47) ??F ?Collect Date: ? 11/03/2003 Location: ? [facility] ? Receive Date: ? 11/05/2003 Provider: ?LIZZETH BEARDEN STATISTICAL TECHNICIAN Copy to: ? Specimen/Source: ?ThinPrep Pap Test, Cervix/Endocervix Last Menstrual Period: ? 10/25/03 Other: ? HPVA - HPV testing requested if ASC-US on the current ThinPrep Pap test. ? SPECIMEN ADEQUACY ? Satisfactory for Evaluation - transformation zone component present GENERAL CATEGORIZATION ? Negative for Intraepithelial Lesion or Malignancy ? Document reviewed and electronically signed by: ? NADIA Gaspar(ASCP) ? Report Date: ??11/10/2003 10:28 End of Report LUANN CRAIN 11/03/2003 11/05/2003 us Lizzeth Bearden STATISTICAL TECHNICIAN PATHOLOGY ORDERABLES Final R esult LUANN CRAIN [address] [place] [address] documented in this encounter Visit Diagnoses Not on filedocumented in this encounter
--- OUTSIDE RECORDS SUMMARY | 2024-08-20 16:06 | XMS_ITS | Referral Summary ---
Author Organization [facility] Address [address] [place] [address] Care Team Providers Care Clinical Business Manager Name Role Phone Calista eLiva HAND TACKER Primary Care Provider [phone] Social History Tobacco Use Types Packs/Day Years Used Date Smoking Tobacco: Never Assessed Comments Unknown Sex and Gender Information Value Date Recorded Sex Assigned at Not on file Legal Sex Female 18:33 EST Gender Identity Not on file Sexual Orientation Not on file Plan of Treatment Not on file Care Teams Clinical Business Manager Relationship Specialty Start Date End Date Calista Leiva, HAND [facility] [address] [place] [address] PCP - General 08/12/13
--- OUTSIDE RECORDS SUMMARY | 2024-08-20 16:07 | XMS_ITS | Encounter Summary ---
Author Organization [facility] Address [facility] [place] [address] Care Team Providers Care Ice Cream Maker Name Role Phone AbbieCalista Ken RUIZ Primary Care Provider [phone] Encounter Details Date Type Department Care Team (Late st Contact Info) Description 02/18/2014 2:19 PM EDT Anesthesia [place] [id number] Moshe Jackson MD [facility] [place] [address] Phillip Mix MD [facility] [place] [address] Anesthesia Record Procedure Summary Procedure Name Responsible Anesthesiologist Anesthesia Start Time Anesthesia Stop Time DISCECTOMY, ANT, CERVICAL , ONE LVL (WRVU 19.6) (Neck) Moshe Jackson MD 02/18/14 1419 02/18/142013 Events Date Time Event Comment 02/18/2014 1403 1419 Start 1422 AN Verify 1422 An Start Data 1426 An Induction 1432 An Intubation 1444 An Data Art 1451 Anesthesia Ready 1503 Quick Note ABG: PH: 7.400 PCO2: 36 PO2: 442 BD: 3.0 Hb: 13.1 G 1518 Procedure Start 1521 Quick Note 3cc 1% Lidocain e with epi 1526 Quick Note BIS 28 1528 Break/Relief In PHILLIP PARADA MD 1546 Break/Relief Out 1549 Quick Note BIS 42 1625 Quick Note BIS 40 1652 Quick Note BIS 38 1705 Quick Note BIS 39 1729 Quick Note BIS 41 1749 Quick Note BIS 44 1808 Handoff The patient's c bull was reviewed. The current anestetic course as well as the anesthetic plans were also reviewed. 2006 Extubation/LMA Out 2006 an stop data 2014 Stop Meds Name Total fentaNYL 200 mcg propofol 200 mg Rocuronium 50 mg PHENYLephrine 400 mcg ePHEDrine 20 mg dexAMETHasone 8 mg ondansetron 8 mg ceFAZolin 1 g REMIfentanil INF 1.19 mg PHENYLephrine INF 4,140 mcg HYDROmorphone 0.8 mg Labetalol 5 mg lactated ringers 1,700 mL * Agents Name O2 Air Sevoflurane (et) * Blood No blood administrations on file. Lines, Drains, and Airways Type Details Placement Removal (RETIRED) Peripheral IV Line - Single Lumen 02/17/14; 1534; basilic vein left (medial side of arm) (left wrist); [id number] catheter system; 22 gauge, 1 in length; intradermal injection, tolerated well; 0; 02/20/14; 0932 02/17/14 1534 by Jose A Pardo RN 02/20/14 0932 by Elaine Mukherjee APRN Urethral Catheter 02/18/14; indwelling double lumen catheter; 100% silicone; 16; inserted at this facility (using sterile technique); 1; 5; 10; none; drainage bag to dependent drainage; 02/19/14; 0613 02/18/14 0000 by Champ Quiles RN 02/19/14 0613 by Harshad Aguirre RN Incision 02/18/14; neck; vertical; 05/02/22 (LDA cleanup utility RA#[id number]); 1715 (LDA cleanup utility RA#[id number]) 02/18/14 0000 by Champ Quiles RN 05/02/22 1715 by Hazel Sears (RETIRED) Peripheral IV Line - Single Lumen metacarpal vein right (top of hand); 18 gauge; 02/20/14; 0932 02/18/14 1522 by 02/20/14 0932 by Elaine Mukherjee APRN Arterial Line radial artery; 20 ga uge; MD Maria Del Rosario; Sterile Gloves, Sterile Prep; 02/18/14; 211902/18/14 1522 by 02/18/142119 by Viviana Dewitt RN ETT Mask Ventilation: Adjunct (2); ETT Type: Cuffed, Oral; ETT Size: 6.5 mm; Indirect: Video; Notes: Asleep, Stylette, Pre-O2; Attempts: 1; Laryngoscopy Grade: 1; ETT Placement Verified By: Auscultation, Capnometry, Visual; Secured at Teeth: 20 cm; Inserted by: MD Marty; Removal Date: 02/18/14; Removal Time: 200502/18/14 1523 by 02/18/142005 by Siva Meza CRNA Drain/Device Site 02/18/14; 1937; Left ; neck; collapsible closed device; 09/11; 02/19/14; 2156 (removed by MD @ unknown time) 02/18/141937 by Rohith Maynard RN 02/19/142156 by Miguel Jimenez RN documented in this encounter Social History Tobacco Use Types Packs/Day Years Used Date Smoking Tobacco: Never Smokeless Tobacco: Never Alcohol Use Standard Drinks/Week Comments No 0 (1 standard drink = 0.6 oz pur e alcohol) Sex and Gender Information Value Date Recorded Sex Assigned at Not on file Gender Identity Not on file Sexual Orientation Not on file documented as of this encounter OR Notes * Anesthesia Postprocedure Evaluation - Moshe Jackson MD - 02/19/2014 8:15 PM EDT Patient: Jong Oliva Procedure(s) Performed: Procedure(s): DISCECTOMY, ANT, CERVICAL , ONE LVL EA. ADD'L SPACE, CX ANT. CX. FUSION INCLUD. MIN. DISCECTOMY; BELOW C2 @ANT. FUSION, INCLUDE. MIN. DISCECTOMY; EA. ADD'L LVL ALLOGRAFT FOR SPINE SURGERY ONLY; STRUCTUAL @ANT. SPINAL INSTRUMENTATION, 2-3 VERTEBRA, SEGMENTED MODIFIER GLOBUS PROVIDENCE MODIFIER, GLOBUS FORGE Actual Anesthetic: general Patient location: PACU Post-op pain: adequate pain control Post-op nausea: no PONV Last Vitals: Filed Vitals: 02/19/14 1900 BP: 117/58 Pulse: 73 Temp: 36.7 ??C (98.1 ??F) Resp: 16 Post-op cardiovascular and respiratory status: stable Level of consciousness: awake Complications: no apparent complications Fluid Status: normal * Anesthesia Preprocedure Evaluation - Phil Ferguson MD - 02/17/2014 6:44 PM EDT Pre-Anesthesia Evaluation for: Jong Oliva a 58 y.o. female. Procedure(s): DISCECTOMY, ANT, CERVICAL , ONE LVL EA. ADD'L SPACE, CX ANT. CX. FUSION INCLUD. MIN. DISCECTOMY; BELOW C2 @ANT. FUSION, INCLUDE. MIN. DISCECTOMY; EA. ADD'L LVL ALLOGRAFT FOR SPINE SURGERY ONLY; STRUCTUAL @ANT. SPINAL INSTRUMENTATION, 2-3 VERTEBRA, SEGMENTED MODIFIER GLOBUS PROVIDENCE MODIFIER, GLOBUS FORGE There are no active problems to display for this patient. No past medical history on file. No past surgical history on file. History Substance Use Topics ??? Smoking status: Never Smoker ??? Smokeless tobacco: Never Used ??? Alcohol Use: No History Drug Use No No Known Allergies Medications: MAR and/or home medications have been reviewed. Physical Exam: There were no vitals filed for this visit. There is no height or weight on file to calculate BMI. Airway Assessment: Mallampati: II TM distance: >3 FB Neck ROM: limited Cardiovascular Assessment: Pulmonary Assessment: Dental Assessment: Comment: Multiple missing teeth, poor dentition. None loose. Misc Assessment: IV access: Peripheral line Anesthesia Plan: ASA 2 general, with a(n) intravenous induction Plan GA with +/- arterial line. Probable glidescope. Region - Other Informed Consent: Anesthetic plan and risks discussed with patient. Plan discussed with resident and attending. [facility]. Assessment: <ANESPRE> 58 y.o. woman with the below listed medical history going to the OR for cervical discectomy with neurologic findings with Dr. Radford. Weight: Estimated Body mass index is 29.27 kg/(m^2) as calculated from the following: Height as of 02/17/14: 4' 11(1.499 m). Weight as of 6/16/14: 145 lb(65.772 kg). Baseline BP: 120-130 on floor Previous Anesthesia: None on file PMH notable for: #back and neck pain #hx of + TB test--some shortness of breath with exertion. ROS otherwise negative for cardiac, pulmonary, renal, hepatic, thyroid, diabetic, nor bleeding issues. No significant GERD. Social History: non smoker non drinker Allergies: none Labs: None recent Previous Cardiac Workup: none documented in this encounter Miscellaneous Notes * Addendum Note - Moshe Jackson MD - 01/02/2017 9:56 AM EDT Addendum created 01/02/17955 by Moshe Jackson MD Sign clinical note documented in this encounter Plan of Treatment Not on file documented as of this encounter Visit Diagnoses Not on filedocumented in this encounter Administered Medications Inactive Administered Medications - up to 3 most recent administrations Medication Order MAR Action Action Date Dose Rate Site ceFAZolin (ANCEF) 1g in dextrose 5% 50mL PRN, Starting on Mon02/18/14 at 1436, Until Mon02/18/14 at 2013, Administer over 30 Minutes, Anesthesia Intra-op Given 02/18/2014 2:36 PM EDT 1 g dexamethasone (DECADRON) injection PRN, Starting on Mon02/18/14 at 1504, Until Mon02/18/14 at 2013, Anesthesia Intra-op, Routine Given 02/18/2014 3:04 PM EDT 8 mg ePHEDrine Sulfate in sodium chloride 0.9% (PF) 50 mg/10 mL (5 mg/mL) injection Syrg PRN, Starting on Mon02/18/14 at 1436, Until Mon02/18/14 at 2013, Anesthesia Intra-op Given 02/18/2014 2:41 PM EDT 10 mg Given 02/18/2014 2:36 PM EDT 10 mg fentaNYL 50mcg/mL injection PRN, Starting on Mon02/18/14 at 1426, Until Mon02/18/14 at 2013, Pain, Anesthesia Intra-op, Routine Given 02/18/2014 5:51 PM EDT 50 mcg Given 02/18/2014 5:04 PM EDT 50 mcg Given 02/18/2014 2:26 PM EDT 100 mcg HYDROmorphone (DILAUDID) injection PRN, Starting on Mon02/18/14 at 1826, Until Mon02/18/14 at 2013, Pain, Anesthesia Intra-op, Routine Given 02/18/2014 6:42 PM EDT 0.4 mg Given 02/18/2014 6:26 PM EDT 0.4 mg labetalol (NORMODYNE;TRANDATE) injection PRN, Starting on Mon02/18/14 at 1828, Until Mon02/18/14 at 2013, High Blood Pressure, Anesthesia Intra-op, Routine Given 02/18/2014 6:28 PM EDT 5 mg lactated ringers infusion CONTINUOUS PRN, Starting on Mon02/18/14 at 1419, Until Mon02/18/14 at 2013, Anesthesia Intra-op New Bag 02/18/2014 2:19 PM EDT mL ondansetron (ZOFRAN) injection PRN, Starting on Mon02/18/14 at 1940, Until Mon02/18/14 at 2013, Nausea, Anesthesia Intra-op, Routine Given 02/18/2014 7:40 PM EDT 8 mg PHENYLephrine (CANDELARIA-SYNEPHRINE) 20 mg in sodium chloride 250 mL infusion CONTINUOUS PRN, Starting on Mon02/18/14 at 1509, Until Mon02/18/14 at 2013, Anesthesia Intra-op, Routine Rate/Dose Change 02/18/2014 6:24 PM EDT 20 mcg/min 15 mL/hr Rate/Dose Change 02/18/2014 6:20 PM EDT 30 mcg/min 22.5 mL /hr Rate/Dose Change 02/18/2014 6:09 PM EDT 40 mcg/min 30 mL/h r PHENYLephrine HCl in NS (PF) (CANDELARIA-SYNEPHRINE) 0.8 mg/10 mL (80 mcg/mL) injection Syrg PRN, Starting on Mon02/18/14 at 1507, Until Mon02/18/14 at 2013, Anesthesia Intra-op, Routine Given 02/18/2014 6:02 PM EDT 80 mcg Given 02/18/2014 5:59 PM EDT 80 mcg Given 02/18/2014 5:16 PM EDT 80 mcg propofol (DIPRIVAN) 10 mg/mL bolus injection (Anesthesia) PRN, Starting on Mon02/18/14 at 1426, Until Mon02/18/14 at 2013, Anesthesia Intra-op Given 02/18/2014 5:48 PM EDT 50 mg Given 02/18/2014 2:26 PM EDT 150 mg REMIfentanil (ULTIVA) 0.02 mg/mL IV infusion (ANESTHESIA) CONTINUOUS PRN, Starting on Mon02/18/14 at 1517, Until Mon02/18/14 at 2013, Anesthesia Intra-op Rate/Dose Change 02/18/2014 6:01 PM EDT 0.1 mcg/kg/min 19.7 mL/hr Rate/Dose Change 02/18/2014 5:49 PM EDT 0.15 mcg/kg/min 29 .6 mL/hr Rate/Dose Change 02/18/2014 3:44 PM EDT 0.1 mcg/kg/min 19. 7 mL/hr rocuronium (ZEMURON) injection PRN, Starting on Mon02/18/14 at 1426, Until Mon02/18/14 at 2013, Anesthesia Intra-op, Routine Given 02/18/2014 2:26 PM EDT 50 mg documented in this encounter Care Teams Ice Cream Maker Relationship Specialty Start Date End Date Calista Leiva APRN PCP - General 01/28/14 09/25/14 documented as of this encounter
--- OUTSIDE RECORDS SUMMARY | 2024-08-20 16:07 | XMS_ITS | Encounter Summary ---
Author Organization [facility] Address [facility] [place] [address] Care Team Providers Care Perinatal Social Worker Name Role Phone Calista Leiva APRN Primary Care Provider [phone] Encounter Details Date Type Department Care Team (Late st Contact Info) Description 01/22/2014 Orders Only Neurosurgery at [facility] [place] [address] Odilon Radford MD [facility] [place] [address] Social History Tobacco Use Types Packs/Day Years Used Date Smoking Tobacco: Never Assessed Sex and Gender Information Value Date Recorded Sex Assigned at Not on file Gender Identity Not on file Sexual Orientation Not on file documented as of this encounter Plan of Treatment Not on file documented as of this encounter Procedures Procedure Name Priority Date/Time Associated Diagnosis Comments FILM LIBRARY STORAGE ONLY MR SPINE Routine 01/22/2014 7:22 AM EDT documented in this encounter Results * Film Library- Storage only MR Spine (01/22/2014 7:22 AM EDT) Anatomical Region Laterality Modality Other 01/22/2014 7:22 AM EDT Narrative 01/29/2014 7:27 AM EDT This is a Non-reportable exam Procedure Note 01/29/2014 This is a Non-reportable exam Odilon Radford MD IMG FILM LIBRARY ORD ERABLES documented in this encounter Visit Diagnoses Not on filedocumented in this encounter Care Teams Perinatal Social Worker Relationship Specialty Start Date End Date Calista Leiva APRN PCP - General 01/28/14 09/25/14 documented as of this encounter
--- OUTSIDE RECORDS SUMMARY | 2024-08-20 16:07 | XMS_ITS | Continuity of Care Document ---
Author Organization [facility] Address [address] [place] [address] Care Team Providers Care Community Fundraiser Name Role Phone Liliya Lama Primary Care Physic alban Encounter Date(s): 03/14/24 - 03/14/[address] [address] [place] Discharge Disposition: Home or Self Care Patient Care team information Care Team Personnel Name: Liliya Vega Position: Provider - Advanced Practitioner Member Role: Primary Care Provider Address: Address: [address] [place], [place] [address]
--- OUTSIDE RECORDS SUMMARY | 2024-08-20 16:07 | XMS_ITS | Encounter Summary ---
Author Organization [facility] Address [facility] [place] [address] Care Team Providers Care Legal Associate Name Role Phone Calista Leiva APRN Primary Care Provider [phone] Reason for Visit * Reason Comments Back Problem Encounter Details Date Type Department Care Team (Late st Contact Info) Description 02/17/2014 10:00 AM EDT Office [place] [id number] Odilon Radford MD [facility] [place] [address] Myelopathy (Primary Dx) Discharge Disposition: Home Social History [...] Sign Reading Time Taken Comments Blood Pressure 137/80 02/17/2014 9:42 AM EDT Pulse 65 02/17/2014 9:42 AM EDT Temperature 36.9 ??C (98.4 ??F) 02/17/2014 9:42 AM ED T Respiratory Rate 20 02/17/2014 9:42 AM EDT Oxygen Saturation 98% 02/17/2014 9:42 AM EDT Inhaled Oxygen Concentration - - Weight 65.8 kg (145 lb) 02/17/2014 9:42 AM EDT Height 151.1 cm (4' 11.5) 02/17/2014 9:42 AM ED T Body Mass Index 28.8 02/17/2014 9:42 AM EDT documented in this encounter Progress Notes * Odilon Radford MD - 02/17/2014 10:52 AM EDT Jong Oliva is a 58-year-old right-handed woman who I performed a cervical diskectomy at C5-6 in 2001, and at that time she was doing reasonably well until about 10 weeks ago when she noticed problems in the use of her hand. This progressed to problems with use of her leg, and over the last two weeks there has been acceleration of this process where she cannot extend the fingers of her right hand. She has to pull her right leg up to get into bed. She can really only take a few steps unassisted. She has had some bladder urgency, as well. She says that she feels numb from the neck down. She has had no change in her other medical conditions. She has been on Disability since December of 2005. On examination, there is a well-healed cervical incision. The right hand is held with the fingers and thumb in flexion. She cannot extend her right thumb or her right-sided fingers and has limited wrist extension on the right. Her left hand is held with the fingers in flexion, but she can almost extend them. Deltoid/biceps strength is full bilaterally. Her left lower extremity strength is good. Right lower extremity she has 1 to 2 foot plantar flexion, 0 to 1 foot dorsiflexion, knee extension and knee flexion is 3. Hip flexion is 2 to 3. She can stand up using her arms for assistance but can only take about three steps with a wide-based gait before she falls. Proprioception is intact in her lower extremities. Deep tendon reflexes are brisk throughout, although I do not detect any clonus. Proprioception intact to her lower extremities. Review of her cervical MRI shows no stenosis at the level of her prior surgery, which is 5-6. There is spondylosis level at the 4-5 level; this narrows the canal significantly. At the 6-7 level, there is some high signal behind the cord with a good-sized disk extrusion. Her thoracic spine shows no obvious lesion. I had a discussion with Ms. Oliva on the options in this situation. With her rapidly progressive myelopathy and current exam, I think we should move towards decompression here, as she has been unable to manage at home and that is not surprising given the extent of her myelopathy and the fact that she lives alone. She has been undergoing a stressful divorce, as well. We did discuss that I could not make her any assurances that we would be able to get any of her function back and that she may even be worse as a result of surgery, but I think given the appearance of this I think proceeding with surgery is reasonable. I would note that her postoperative MRI after her surgery that this current image is quite different than that. We did discuss the risks here. She has had a right-sided approach. Before making a left-sided approach, I think we would need to have ENT look to make sure her vocal cords come together; and it would be reasonable to get an MR of her lumbar spine and some plain x-rays of her cervical spine. We also discussed the risks of anesthesia; infection; bleeding, injury to the anterior neck structures, trachea, esophagus, recurrent laryngeal nerve, great vessels; possibility of injury to the spinal cord and the possibility of paralysis; failure of the fusion; and failure to improve. I told her that I thought she would almost certainly need a period of rehab given her myelopathic exam now and the expectations and functional decline as a result of surgery. All of these questions were answered, and she is agreeable of her admission today. That will be arranged, and we will work on the other details. All questions were answered. documented in this encounter Plan of Treatment Not on file documented as of this encounter Visit Diagnoses Diagnosis Myelopathy- Primary Unspecified disease of spinal cord documented in this encounter Care Teams Legal Associate Relationship Specialty Start Date End Date Calista Leiva APRN PCP - General 01/28/14 09/25/14 documented as of this encounter
--- OUTSIDE RECORDS SUMMARY | 2024-08-20 16:07 | XMS_ITS | Encounter Summary ---
Author Organization [facility] Address [facility] [place] [address] Care Team Providers Care Loan Inspector Name Role Phone Calista Paniagua APRN Primary Care Provider [phone] Encounter Details Date Type Department Care Team (Late st Contact Info) Description 02/18/2014 2:26 PM EDT - 02/18/2014 6:24 PM EDT Surgery [place] [id number] Jason Radford MD [facility] [place] [address] [place] [address] DISCECTOMY, ANT, CERVICAL , ONE LVL (WRVU 19.6) Social History Tobacco Use Types Packs/Day Years [...] may be used if needed and are ovoe-bod-yqdyvjt (OTC) medications available at most local pharmacies. [...] Nurse: Mayuri Gonzalez Inpatient Nurses: Neurosurgical Resident Social Services Specialist (after 5pm or before 8am): Neurosurgery offices (weekdays between 8am-5pm): Dr. Radford: Dr. Russell: Pediatric Patients , Adult [phone] Dr. Walker: Dr. Velasquez: Dr. Cortez: Dr. Alvarez Don Hamilton, Physician Mingler Operator Judy Richmond, Physician Mingler Operator Don Lu, Physician Mingler Operator Trista Bergman, Nurse Practitioner Your surgeon may not be Social Services Specialist, especially during the night or on weekends, [...] 02/20/2014 9:42 AM EDT Office of Care Management/Swing Grinder Patient Name: Jong Oliva : 1955 Patient has been offered a SNF bed at [facility].. Family arranged for a 10:00 transport. No MD to MD report necessary. Please call Nursing Report to [phone], ask for multimedia artist. Info to accompany patient: Narcotic Prescriptions Copies of Medication Administration Records and IV sheets for past 10 days. [place] PASSR Plan: Swing Grinder will be available to the patient and CRC for further assistance. Patient will be discharged to: [facility] [address] [place] [address] Jenna Collins Swing Grinder * Elaine Brown RN - 02/20/2014 9:10 [...] AM EDT NEUROSURGERY PROGRESS NOTE Jong Oliva [id number] 1955 ID: 58 y.o. woman with history [...] No facial asymmetry Tongue midline MOTOR: RUE:4/5 mold release worker, 4/5 wrist extension, 5/5 biceps, 4/5 triceps LUE: 4/5 mold release worker, 4/5 wrist extension, 5/5 biceps, 4/5 triceps [...] [phone] Recent Labs Basename 02/20/14 04202/19/14 0320 02/18/14 0436 NA 137 134* 135 [...] EDT Physical Therapy Progress note Patient profile: Jogn Oliva is a 58 y.o. 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 Pt s/p C4-5, C6-7 ACDF 02/18/14. New post op orders received Social History: Patient lives alone in [place], [place]. Ramp into house Baseline Mobility: has [...] today Bed Mobility: N/E. Pt received in Balance: Sitting balance: good Standing balance: with [...] timed interventions: 24 minutes functional mobility Pager: [phone] THEODORE BOWMAN, PT 02/19/2014 Physical Therapy Rehabilitation Department * Ivy Avalos - 02/19/2014 6:38 AM EDT NEUROSURGERY PROGRESS NOTE Jong Oliva [id number] 1955 ID: 58 y.o. woman with history [...] No facial asymmetry Tongue midline MOTOR: RUE:4/5 mold release worker, 4/5 wrist extension, 5/5 biceps, 4/5 triceps LUE: 4/5 mold release worker, 4/5 wrist extension, 5/5 biceps, 4/5 triceps [...] oriented. Vitals stable, afebrile. Denies pain. HARSHAD AGUIRRE, RN * Viviana Dewitt RN - 02/18/2014 8:16 PM EDT 2010 s/p anterior discectomy C4-C5 and C6-C7 with GA-anterior dressing dry& intact with CARLOS collecting bloody-alarms roryaplci-xmknfcp-rtc left radial art line. 2200 meets discharge [...] evaluation when appropriate. Jackie Montilla, OTR Pager [phone] * Ivy Avalos - 02/18/2014 6:48 AM EDT NEUROSURGERY PROGRESS NOTE Jong Oliva [id number] 1955 ID: 58 y.o. woman with history [...] No facial asymmetry Tongue midline MOTOR: RUE:3/5 mold release worker, 4/5 wrist extension, 5/5 biceps, 4/5 triceps LUE: 3/5 mold release worker, 4/5 wrist extension, 5/5 biceps, 4/5 triceps [...] IVF until good PO. Monitor lytes. Ivy Robbie [phone] * Marta Soler RN - 02/17/2014 [...] Ivy Avalos - 02/20/2014 6:01 PM EDT [facility] Operative Note Patient Name: Jong Oliva : [id number] MR#: [id number] Case Date: 02/18/2014 Surgeon: Surgeon(s) and Role: [...] the case, all counts were correct. Dr. Radford was present and scrubbed for the entire procedure. The incision was dressed with Mastisol, Steri-Strips, sterile 4 x 4 gauze, and Medipore tape. Patient was then awakened from anesthesia and transferred to the PACU in stable condition, having suffered no untoward event. * Care Management - Drake Kathleen RN - 02/20/2014 9:18 AM EDT Office of Care Management Clinical Certified Nurses Aide (CRC) She Kathleen RN, BSN -[facility] NeuroSurgery Voice Mail [phone] Pager #[phone] DISCHARGE NOTE: ROOM: [facility] ATTENDING: Jason Radford MD Reason for Hospitalization: s/p ACDF Patient is medically ready for d/c. Patient has been offered a bed at [place], [place]. Family and patient are aware and [...] Data: None Discharge Conditions/Prognosis: Stable Discharge to: [facility] Discharge Medications: Your Medications As of 02/20/2014 [...] may be used if needed and are nnei-omx-zmfyrtd (OTC) medications available at most local pharmacies. [...] Nurse: Mayuri Gonzalez Inpatient Nurses: Neurosurgical Resident Social Services Specialist (after 5pm or before 8am): Neurosurgery offices (weekdays between 8am-5pm): Dr. Radford: Dr. Russell: Pediatric Patients , Adult [phone] Dr. Walker: Dr. Velasquez: Dr. Cortez: Dr. Alvarez Don Hamilton, Physician Mingler Operator Judy Richmond, Physician Mingler Operator Don Lu, Physician Mingler Operator Trista Bergman, Nurse Practitioner Your surgeon may not be Social Services Specialist, especially during the night or on weekends, [...] AM EDT Office of Care Management Clinical Certified Nurses Aide Discharge Facility Referral. Report received from NAHOMY Muse. Patient is s/p ACDF. MD anticipates patient will be medically ready for discharge tomorrow. Patient would benefit from SNF/swingrehab at discharge. ?? Met with patient/family at bedside. Provided [facility], Office of Care Management letter from the Security Manager pertaining to rehab referrals.. ?? Reviewed levels of rehab including SNF, swing, acute and LTAC. ?? A list that serves the geographical area which the patient resides or the geographical area requested has been provided through [employer] search. ?? Requested patient/family provide at least three choices for referral. Patient/[place] [address] [phone]. Referral to this facility only at this time as daughters work there and want mom to go here only. Patient and family understand that we may need to expand if necessary. Note routed to Swing Grinder who will communicate referrals to facilities via [facility] [employer] program. * Initial Assessments - Jackie Montilla [...] 2001 Social History: Patient lives alone in [place], [place]. She is in the progress of [...] minutes Total timed interventions: 0 minutes Pager: [phone] JACKIE MONTILLA OT 02/19/2014 Occupational Therapy Rehabilitation [...] Operative Note Patient Name: Jong Oliva : [id number] MR#: [id number] Case Date: 02/18/2014 Surgeon: Surgeon(s) and Role: [...] of Care Management She Kathleen RN-CRC Pager: [phone] Clinical Certified Nurses Aide (CRC) Initial Note/DC Planning: continuing care needs to be re-assessed closer to DC Reviewed record and discussed pt withMD team and at interdisciplinary discharge rounds w CRC's, LEGAL RECRUITER, gas charger. Did not interview pt. Patient in OR [...] Calvin Fernandes - 02/17/2014 4:49 PM EDT [facility] Otolaryngology - Head & Neck Surgery New Patient Consult Date of Consultation: 02/17/2014 Patient: Jong Oliva ([id number]; 1955) Patient Location: [address] [place] [address] Admitting Physician: Jason Radford MD Referring Provider: [...] no known allergies. Social History: Lives in [facility] [id number] History Substance Use Topics ??? Smoking status: [...] PMH: Social History: Patient lives alone in [place], [place]. Ramp into house Baseline Mobility: has [...] fingers Bed Mobility: N/E. Pt received in Balance: Sitting balance: good Standing balance: with [...] Total timed interventions: 0 minutes eval Pager: [phone] THEODORE BOWMAN, PT 02/17/2014 Physical Therapy Rehabilitation [...] Lab Jason Radford MD HEMATOLOGY ORDERABLE S CARLEEN CINTRONENNIUM * Hemogram (02/20/2014 4:21 AM EDT) White [...] Metabolic Panel (non-fasting) (02/20/2014 4:21 AM EDT) [facility] Glucose 141 60 - 199 mg/dL CERNER MILLENNIUM Comment:Diabetes: >=200 mg/d L plus symptoms Blood Urea Nitrogen 12 8 - 18 mg/dL CERNER MILLENNIUM Creatinine 0.71 0.70 - 1.20 mg/dL CERNER MILLENNIUM Comment: Please note that the pediatric reference intervals supplied above were not validated at [facility]. Results from pediatric patients should be interpreted [...] the following links into your internet browser. [email or web address] [email or web address] Blood specimen (specimen) 02/20/2014 4:21 AM EDT [...] intervals supplied above were not validated at [facility]. Results from pediatric patients should be interpreted [...] the following links into your internet browser. [email or web address] [email or web address] Blood specimen (specimen) 02/19/2014 3:20 AM EDT [...] (02/18/2014 4:13 PM EDT) Final Diagnosis ? [facility] ? Provider: ?? JASON RADFORD ? Pt. Name: ?? IDA JNOG Branch ? Acc #: ?[id number] ?Pt. ? Col Date: ?? 02/18/2014 ? [...] Diagnosis: ? Same 02/19/2014 11:49 AM EDT [facility] STRUCTURE OF INTERVERTEBRAL DISC / Unknown 02/18/2014 4:13 PM EDT 02/18/2014 4:13 PM EDT STRUCTURE OF INTERVERTEBRAL DISC / Unknown 02/18/2014 4:13 PM EDT 02/18/2014 4:13 PM EDT Jason Radford MD PATHOLOGY/CYTOLOGY O ROBERT Performing Organization Address City/[facility] Co de Phone [place] [address] * Specimen to Pathology (surgical or derm) (02/18/2014 4:13 PM EDT) AP Specimen 02/18/2014 4:13 PM EDT 02/18/2014 4:13 PM EDT Narrative CARLEEN TAYLORIUM - 02/18/2014 4:13 PM EDT Specimen requisition ordered. ??Separate Pathology report to follow Jason Radford MD PATHOLOGY/CYTOLOGY O ROBERT Performing Organization Address [facility] Co de Phone Number CARLEEN SAIDAELISEOIUM * Specimen to Pathology (surgical or derm) (02/18/2014 4:13 PM EDT) AP Specimen 02/18/2014 4:13 PM EDT 02/18/2014 4:13 PM EDT Narrative CARLEEN SAIDALEISEOIUM - 02/18/2014 4:13 PM EDT Specimen requisition ordered. ??Separate Pathology report to follow Jason Radford MD PATHOLOGY/CYTOLOGY O ROBERT Performing Organization Address City/[facility] Co de Phone Number CARLEEN SAIDAELISEOIUM * (ABNORMAL) BLOOD GAS 2 ARTERIAL (02/18/2014 3:08 PM EDT) pH, Arterial 7.40 CERNER MILLENNIUM PCO2, Arterial 36 mmHg CERNE R MILLENNIUM PO2, Arterial 442(H) mmHg CERNER MILLENNIUM Bicarbonate, Arterial 21.8 mmol/L CERNER MILLENNIUM Base Excess, Arterial -3.0 mmol/L CERNER MILLENNIUM Hgb Blood Gas 13.1 gm/dL CERNER MILLENNIUM Comment: Total Hemoglobin (in gm/dL) ?Based on [facility] Hematology ranges: ?Age ?Reference Range Less than [...] CARE TEST O RDERABLES Performing Organization Address [facility] de Phone Number [facility] * Antibody screen (02/18/2014 3:01 PM EDT) Ab Screen Interp Negative [facility] Expires at [id number] on: [id number] [facility] Blood specimen (specimen) 02/18/2014 3:01 PM EDT 02/18/2014 3:20 PM EDT Narrative Resulting Agency Comment Spec In Lab Jason Radford MD BLOOD BANK LAB ORDER PAULINE Performing Organization Address [facility] Phone Number [facility] * ABO/Rh Typing (02/18/2014 3:01 PM EDT) ABORH Type O Neg [facility] Blood specimen (specimen) 02/18/2014 3:01 PM EDT 02/18/2014 3:20 PM EDT Narrative Resulting Agency Comment Spec In Lab Jason Radford MD BLOOD BANK LAB ORDER PAULINE Performing Organization Address [facility] Phone Number [facility] * APTT (02/18/2014 3:01 PM EDT) Partial Thromboplastin Time 27 25 - 35 sec [facility] Comment: Recommended therapeutic PTT range for full dose unfractionated heparin is 80-114 seconds. Blood specimen (specimen) 02/18/2014 3:01 PM EDT 02/18/2014 3:12 PM EDT Narrative Resulting Agency Comment Spec In Lab Jason Radford MD HEMATOLOGY ORDERABLE S Performing Organization Address [facility] de Phone Number [facility] * Prothrombin Time (02/18/2014 3:01 PM EDT) Prothrombin Time 13.3 12.0 - 15.0 sec CERNER MILLENNIUM Comment: [facility] Transfusion Committee Guidelines: INR less than 2.0, [...] MD HEMATOLOGY ORDERABLE S Performing Organization Address [facility] Co de Phone Number CERYOLA CINTRONENNIUM * Hemogram (02/18/2014 4:36 AM EDT) White [...] MD HEMATOLOGY ORDERABLE S Performing Organization Address [facility] Co de Phone Number CARLEEN TAYLORIUM * (ABNORMAL) Basic Metabolic Panel (non-fasting) (02/18/2014 4:36 AM EDT) Glucose 126 60 - 199 mg/dL CERNER MILLENNIUM Comment:Diabetes: >=200 mg/d L plus symptoms Blood Urea Nitrogen 19(H) 8 - 18 mg/dL CERNER MILLENNIUM Creatinine 0.88 0.70 - 1.20 mg/dL CERNER MILLENNIUM Comment: Please note that the pediatric reference intervals supplied above were not validated at [facility]. Results from pediatric patients should be interpreted [...] the following links into your internet browser. [email or web address] [email or web address]/DHnkf Blood specimen (specimen) 02/18/2014 4:36 AM EDT [...] in the context of the clinical situation. (Reference-Memo et al, [id number]) Findings: (prevalence in patients without low back pain), Diskdegeneration (decreased T2 signal, height loss, bulge) (91%), Disk T2-signal loss(83%), Disk height loss (56%), Disk bulge (64%), Disk protrusion (32%), Annular fissure (38%). Jason MELTON MRI ORDERABLES documented in this encounter Visit Diagnoses Not on filedocumented in this encounter Administered Medications Inactive Administered Medications - up to 3 most recent administrations Medication Order MAR Action Action Date Dose Rate Site bacitracin injection ONCE PRN, Starting on Mon02/18/14 at 1539, Until Mon02/18/14 at 2209, Intra-Operative (Intra-Procedure), Routine Given 02/18/2014 3:39 PM EDT 10,000 Units 19- Surgical Site gelatin adsorbable (GELFOAM) sponge ONCE PRN, Starting on Mon02/18/14 at 1540, Until Mon02/18/14 at 2209, Intra-Operative (Intra-Procedure) Given 02/18/2014 3:40 PM EDT 1 each 19- Surgical Site lidocaine-EPINEPHrine 1 %-1:200,000 injection ONCE PRN, Starting on Mon02/18/14 at 1541, Until Mon02/18/14 at 2209, Intra-Operative (Intra-Procedure), Routine Given 02/18/2014 3:41 PM EDT 3 mLs 19- Surgical Site thrombin (bovine) (THROMBIN-JMI) solution ONCE PRN, Starting on Mon02/18/14 at 1541, Until Mon02/18/14 at 2209, Intra-Operative (Intra-Procedure) Given 02/18/2014 3:41 PM EDT 5,000 Units 19- Surgical Site documented in this encounter Active and Recently Administered Medications Times are shown in EDT. Scheduled Medication Order 02/18/2014 02/19/2014 02/20/2014 atenolol (TENORMIN) tablet 50 mg (CANCELED) 50 mg, Oral, DAILY, First dose on Mon02/17/14 at 1400, Until Discontinued, Routine 0815 (Given - Provider: Marta Soler RN)133 (MAR Hold - Provider: Admin Adt - Reason: Transfer to a Procedural area)2023 (MAR Unhold - Provider: Viviana Dewitt RN) 0933 (Given - Provider: Elaine Brown RN) 0849 (Given - Provider: Elaine Brown RN) atorvastatin (LIPITOR) tablet 20 mg (CANCELED) 20 mg, Oral, EVERY EVENING, First dose on Mon02/17/14 at 1700, Until Discontinued, Routine 1339 (NOV Hold - Provider: Admin Adt - Reason: Transfer to a Procedural area)1700 (Automatically Held - Provider: Admin Adt)2023 (NOV Unhold - Provider: Viviana Dewitt RN) 180 (Given - Provider: Elaine Brown RN) ceFAZolin (ANCEF) 1g in dextrose 5% 50mL (CANCELED) 1,000 mg (1 g), Intravenous, EVERY 8 HOURS, First dose on Mon02/18/14 at 2045, Until Discontinued, Administer over 30 Minutes, Indication for (Active or Suspected): Prophylaxis 2326 (New Bag - Provider: Harshad Aguirre RN - Comment: last dose at 1436 in OR) 0604 (New Bag - Provider: Harshad Aguirre RN - Comment: med not available)1402 (New Bag - Provider: Elaine Brown RN)2002 (New Bag - Provider: Miguel Jimenez, NITHYA) 0509 (New Bag - Provider: Miguel Jimenez, NITHYA) celecoxib (celeBREX) capsule 400 mg (CANCELED) 400 mg, Oral, 2 TIMES DAILY, First dose on Mon02/17/14 at 1330, Until Discontinued, Routine 0817 (Given - Provider: Marta Soler RN)1339 (NOV Hold - Provider: Admin Adt - Reason: Transfer to a Procedural area)2100 (Automatically Held - Provider: Admin Adt)2309 (NOV Unhold - Provider: Admin Adt) esomeprazole (NEXIUM) capsule 40 mg (CANCELED)(Linked Group 1) 40 mg, Oral, DAILY, First dose on Mon02/17/14 at 1400, Until Discontinued, If unable to take PO, may give IV, Routine 0817 (Given - Provider: Marta Soler RN)1339 (NOV Hold - Provider: Admin Adt - Reason: Transfer to a Procedural area)202 (NOV Unhold - Provider: Viviana Dewitt RN) 0934 (Given - Provider: Elaine Brown RN) 0849 (Given - Provider: Elaine Brown RN) NIFEdipine (ADALAT CC) CR tablet 30 mg (CANCELED) 30 mg, Oral, DAILY, First dose on Mon02/17/14 at 1300, Until Discontinued, Routine 0817 (Given - Provider: Marta Soler RN)1339 (MAR Hold - Provider: Admin Adt - Reason: Transfer to a Procedural area)2023 (MAR Unhold - Provider: Viviana Dewitt RN) 0934 (Given - Provider: Elaine Brown [...] 0818 (Given - Provider: Marta Soler RN)1339 (MAR Hold - Provider: Admin Adt - Reason: Transfer to a Procedural area)2100 (Automatically Held - Provider: Admin Adt)230 (MAR Unhold - Provider: Admin Adt) 0934 (Given - Provider: Elaine Brown RN)2001 (Given - Provider: Miguel Jiemnez, NITHYA) 0843 (Not Given - Provider: Elaine Brown RN - Reason: Patient/family refused) sodium chloride 0.9 % flush 5 mL (CANCELED) 5 mL, Intravenous, 2 TIMES DAILY, First dose on Mon02/17/14 at 1230, Until Discontinued, Recovery (Recovery-Hospital Unit), Routine 0900 (Not Given - Provider: Marta Soler RN - Reason: See comment - Comment: infusing.)232 (Given - Provider: Harshad Aguirre RN) 0935 (Given - Provider: Elaine Brown RN)2100 (Not Given - Provider: Miguel Jimenez RN - Reason: See comment - Comment: ivf infusing) 0852 (Given - Provider: Elaine Brown RN) Continuous Medication Order 02/18/2014 02/19/2014 02/20/2014 sodium chloride 0.9% with potassium chloride 20 mEq infusion (CANCELED) 80 mL/hr, Intravenous, CONTINUOUS, Starting on Mon02/17/14 at 1230, Until Mon02/19/14 at 0812 0516 (New Bag - Provider: Harshad Aguirre, RN)2031 (New Bag - Provider: Viviana Dewitt, RN) PRN Medication Order 02/18/2014 02/19/2014 02/20/2014 [...] - Reason: Transfer to a Procedural area)2022 (MAR Unhold - Provider: Viviana Dewitt, NITHYA) 452 (Given - Provider: Harshad Aguirre, NITHYA)2200 (Given - Provider: Miguel Jimenez, NITHYA) bacitracin injection (CANCELED) ONCE PRN, Starting on Mon02/18/14 at 1539, Until Mon02/18/14 at 2209, Intra-Operative (Intra-Procedure), Routine 1539 (Given - Provider: Ivy Avalos - Comment: [address]22 units per liter LR) bisacodyl (DULCOLAX) suppository 10 mg (CANCELED) 10 mg, Rectal, DAILY PRN, Starting on Mon02/17/14 at 1202, Until Elvi 02/20/14 at 1150, Constipation, Administer if needed per patient's routine or if no bowel movement within 48 hours, Routine 1339 (MAR Hold - Provider: Admin Adt - Reason: Transfer to a Procedural area)2308 (MAR Unhold - Provider: Admin Adt) 2001 (Given [...] Elvi 02/20/14 at 1150, Pain, Routine 1339 (MAR Hold - Provider: Admin Adt - Reason: Transfer to a Procedural area)2023 (MAR Unhold - Provider: Viviana Dewitt RN) 0454 (Given - Provider: Harshad Aguirre, NITHYA - Comment: patient lost one dilaudid in bed)0521 (Given - Provider: Harshad Aguirre, RN)0933 (Given - Provider: Elaine Brown RN)1402 (Given - Provider: Elaine Brown RN)1804 (Given - Provider: Elaine Brown RN)2202 (Given - Provider: Miguel Jimenez, NITHYA) 0334 (Given - Provider: Miguel Jimenez RN)0941 (Given - Provider: Elaine Brown RN) lidocaine-EPINEPHrine [...] Oral, EVERY 4 HOURS PRN, Starting on 02/17/14 [...] Routine documented in this encounter Care Teams Loan Inspector Relationship Specialty Start Date End Date Calista Paniagua APRN PCP - General 01/28/14 09/25/14 documented as of this encounter
== END 2024-08-20 16:05 | disposition home or self-care (01) ==
LOC: NCHCN 16:04
PROVIDERS: PCP Specialist/Technologist Athletic Trainer; Visit Provider Family Medicine
DX: N39.0 Urinary tract infection, site not specified (principal); B96.29 Other Escherichia coli [E. coli] as the cause of diseases classified elsewhere
CPT/HCPCS: 87077; 87086; 87186

== ENCOUNTER 2025-01-23 18:23 | Outpatient (REF) | payer MEDICARE, SELFPAY ==
[2025-01-23 16:17] LABS: ALT 19 U/L (14-59); AST 29 U/L (15-37); Albumin 4.2 g/dL (3.4-5.0); Alkaline Phosphatase 95 U/L (46-116); Anion Gap 4.1 mmol/L (3-11); BUN 10 mg/dL (7-18); Bilirubin, Total 0.5 mg/dL (0.2-1.0); CO2 27.9 mmol/L (21.0-32.0); CREATININE 0.8 mg/dL (0.55-1.02); Calcium 9.4 mg/dL (8.5-10.1); Chloride 99 mmol/L (98-107); Estimated GFR 79.22 (mL/min/1.73m2); Glucose 110 mg/dL (74-106); Potassium 4.5 mmol/L (3.5-5.1); Sodium 131 mmol/L (136-145); Total Protein 7.5 g/dL (6.4-8.2)
[2025-01-23 17:24] LABS: Hemoglobin A1C 6.3 % (<5.7)
== END 2025-01-23 18:24 | disposition home or self-care (01) ==
LOC: NCHCN 18:23
PROVIDERS: PCP Specialist/Technologist Athletic Trainer; Visit Provider Nurse Practitioner Family
DX: R73.03 Prediabetes (principal); Z00.00 Encounter for general adult medical examination without abnormal findings
CPT/HCPCS: 80053; 83036

== ENCOUNTER 2025-02-14 12:03 | Outpatient (REF) | payer MEDICARE, SELFPAY ==
[2025-02-14 16:02] LABS: Anion Gap 5.9 mmol/L (3-11); BUN 13 mg/dL (7-18); CO2 29.1 mmol/L (21.0-32.0); CREATININE 0.9 mg/dL (0.55-1.02); Calcium 9.1 mg/dL (8.5-10.1); Chloride 99 mmol/L (98-107); Estimated GFR 68.77 (mL/min/1.73m2); Glucose 120 mg/dL (74-106); Potassium 5.1 mmol/L (3.5-5.1); Sodium 134 mmol/L (136-145); TSH (W/Ref FT4) 1.98 uIU/mL (0.36-3.74)
== END 2025-02-14 12:04 | disposition home or self-care (01) ==
LOC: NCHCN 12:03
PROVIDERS: PCP Specialist/Technologist Athletic Trainer; Visit Provider Nurse Practitioner Family
DX: E87.1 Hypo-osmolality and hyponatremia (principal)
CPT/HCPCS: 80048; 84443

== ENCOUNTER 2025-02-26 00:08 | Outpatient (CLI) | payer MEDICARE, SELFPAY ==
--- NOTE | 2025-02-26 | DI.MAMMO_ITS ---
Exam(s) MAMMO SCREENING EXAM: MAMMO SCREENING CLINICAL HISTORY: mammo screening Z12.31 TECHNIQUE: Mammograms were interpreted according to the usual protocol including computer analysis with CAD system, tomosynthesis and C-view imaging. COMPARISON: 2016 through 2021 FINDINGS: The breasts are composed of scattered fibroglandular densities, Breast Density category B. No suspicious masses or suspicious microcalcifications are seen. No skin thickening or abnormal axillary lymph nodes are seen. There has been no significant change from prior exams. IMPRESSION: BI-RADS Category 1, Negative mammogram Yearly screening mammography is recommended. Breast Density - Category B - There are scattered areas of fibroglandular density. Breast density Category C or D implies that the patient has dense breast tissue. Dense breast tissue can make it harder to find cancer on a mammogram. Dense breast tissue is also associated with an increased risk of breast cancer. This information about the result of the mammogram report was provided to the patient to raise their awareness. Use this report when you speak with the patient about their risks for breast cancer, which includes their family history. At that time, you may recommend additional screening tests (Ultrasound or MRI) as these tests may add significant information. A negative radiographic report should not delay biopsy if a dominant or clinically suspicious mass is present. Up to ten percent of cancers are not identified on mammography. A negative report may reinforce clinical impression. Adenosis and dense breasts may obscure an underlying neoplasm. False positive reports average 6 to 10%. Patient will receive a letter notifying them of these results.
== END 2025-02-26 00:28 ==
PROVIDERS: PCP Nurse Practitioner Family; Visit Provider Nurse Practitioner Family
DX: Z12.31 Encounter for screening mammogram for malignant neoplasm of breast (principal); R92.323 Mammographic fibroglandular density, bilateral breasts
CPT/HCPCS: 77063; 77067